=== PATIENT | female | born 1980 | race Caucasian/White ===

== ENCOUNTER → 2018-01-26 08:51 | Outpatient (CLI) | payer OTHER, SELFPAY ==
--- NOTE | 2018-01-26 08:53 | US_ITS ---
STUDY: ABDOMINAL ULTRASOUND - RIGHT UPPER QUADRANT REASON FOR VISIT: Female, 37 years old. Abdominal pain. TECHNIQUE: Ultrasound evaluation of the right upper quadrant was performed with real-time and static lindo-scale imaging. TECHNICAL QUALITY: Adequate. COMPARISON: None. FINDINGS: Liver: The liver measures 15.2 cm. There is increased echogenicity consistent with mild degree of fatty infiltration. The bile ducts are within normal limits. There is hepatic color flow. The direction of portal flow is hepatopetal. There is no demonstrated mass lesion. Gallbladder: Normal distended gallbladder. The gallbladder wall measures 1.7 mm. There is a negative sonographic Conde's sign. There is no pericholecystic fluid. There is a solitary echogenic gallstone within the gallbladder. This measures 9 mm x 9 mm x 8 mm. Common Bile Duct (C.B.D.): The common bile duct measures 2.2 mm. Pancreas: Normal size of the head, body of the pancreas. The tail portion is obscured due to overlying bowel gas. There is normal echogenicity of the pancreas. There is no demonstrated pancreatic mass or cyst. Right Kidney: Normal size of the right kidney. The right kidney measures 9.5 cm x 6.2 cm x 4.9 cm. Normal renal cortex. The right cortex measures 1.7 cm. There is no demonstrated renal mass or cyst. There is no right hydronephrosis. US/Abdomen Limited IMPRESSION: Mild degree of fatty infiltration of the liver. Solitary gallstone. Electronically Signed: Seth Dupree MD at 10:17 EDT Tel [phone], Service support ,
== END ==
PROVIDERS: Family Provider Internal Medicine; PCP Internal Medicine; Visit Provider Surgery
DX: R10.11 Right upper quadrant pain (principal)
CPT/HCPCS: 76705

== ENCOUNTER 2018-02-08 05:50 | Day surgery (SDC) | payer OTHER, SELFPAY ==
--- NOTE | 2018-02-08 | IMM_PTH ---
PATIENT: MANUEL HARRIS LOC: EN U#:[id number] AGE/SX: 37/F ROOM: RE02/08/[address]: Dr. Martin Abraham MD : 1980 BED: DIS: 02/08/2018 SPEC #: [id number] RECD: 02/09/18 09:53 STATUS: ROMAN JULI #: [id number] SAUL: 02/08/18 00:[address]: Martin Abraham DEPT: IMMUNOHISTOCHEMISTRY RECD BY: Michelle Barney ENTERED: 02/09/18 09:54 SP TYPE: IMMUNO OTHR DR: Dr. Jovana Cavazos, Tissues: B - Stomach, NOS Procedures: H Pylori (initial) PHYSICIAN & INSTITUTION [place] [id number] SPECIMEN INFORMATION: Tissue Source: B ? Antral biopsy Clinical Info: Epigastric pain, diarrhea Specimen Number: [id number] CPT code: 85796 METHODOLOGY: Deparaffinized sections of prefer/formalin-fixed tissue or PAP/DQ stained slides are incubated with monoclonal/polyclonal antibodies/oligonucleotide probes. Localization is made via biotin free immunoperoxidase method. Appropriate controls are performed and reacted as expected. Results on target cell population are indicated in the following table: RESULTS: ANTIBODY / CLONE RESULT Block B H Pylori (polyclonal) negative These tests were developed and their performance characteristics determined by [facility]. They may not have been cleared or approved by the U.S. Food and Drug Administration. The FDA has determined that such clearance or approval is not necessary. INTERPRETATION: B. Antral biopsy: Negative for Helicobacter pylori organisms. AM:adenike 02/10/18
[2018-02-08 06:12] VITALS: BP 97/70; PULSE 88; RESP 20; TEMP 36.5; O2SAT 100; BMI 34.8
--- NOTE | 2018-02-08 06:30 | EGD_PTH ---
PATIENT: MANUEL HARRIS LOC: EN U#:[id number] AGE/SX: 37/F ROOM: RE02/08/[address]: Dr. Martin Abraham MD : 1980 BED: DIS: 02/08/2018 SPEC #: [id number] RECD: 02/08/18 08:59 STATUS: ROMAN JULI #: [id number] SAUL: 02/08/18 06:[address]: Martin Abraham DEPT: SURGICAL PATHOLOGY RECD BY: Afshin Ren ENTERED: 02/08/18 09:37 SP TYPE: EGD BIOPSY OT DR: Dr. Jovana Cavazos DO Tissues: A - Duodenum, NOS B - Gastric mucous membrane C - Esophagus, NOS D - Esophagus, NOS E - COLON BIOPSY Procedures: Surgery Specimen Level IV HEADER OPERATION: EGD, colonoscopy PRE-OP DIAGNOSIS: Epigastric pain, diarrhea TISSUE SUBMITTED: A. Duodenal biopsy, B. Antral biopsy with H. Pylori, C. Distal esophagus biopsy, D. Mid esophagus biopsy, E. Random colonic biopsies MICROSCOPIC DIAGNOSIS A. Duodenum, biopsy: No pathologic diagnosis. B. Gastric antrum, biopsy; Mild chronic gastritis. C. Distal esophagus, biopsy: Focal changes consistent with reflux. D. Mid esophagus, biopsy: Fragment of benign squamous mucosa. E. Colon, random biopsy: Consistent with lymphocytic colitis. AM:adenike 02/09/18 COMMENT B. The results of immunohistochemistry for Helicobacter pylori will be reported separately ([id number]). C. Glandular epithelium is not represented in the biopsy. Clinical correlation is suggested. MICROSCOPIC DESCRIPTION Slides are reviewed. B. Sections show small collections and groups of plasma cells in the mucosa. Active inflammation is not present. These findings are consistent with mild chronic gastritis. GROSS DESCRIPTION A - Received in fixative is one container labeled with the patient's name and designated duodenal biopsy. The specimen consists of one irregular fragment of light carlin soft tissue that measures 0.2 x 0.2 x 0.1 cm. The specimen is totally submitted in one cassette. B - Received in fixative is one container labeled with the patient's name and designated antral biopsy. The specimen consists of three irregular fragments of light carlin soft tissue that in aggregate measure 0.6 x 0.5 x 0.1 cm. The specimen is totally submitted in one cassette. C - Received in fixative is one container labeled with the patient's name and designated distal esophagus. The specimen consists of one irregular fragment of light carlin soft tissue that measures 0.6 x 0.3 x 0.1 cm. The specimen is totally submitted in one cassette. D - Received in fixative is one container labeled with the patient's name and designated mid esophagus biopsy. The specimen consists of one irregular fragment of light carlin soft tissue that measures 0.5 x 0.2 x 0.1 cm. The specimen is totally submitted in one cassette. E - Received in fixative is one container labeled with the patient's name and designated random colon biopsy. The specimen consists of multiple irregular fragments of light carlin soft tissue that in aggregate measure 1.5 x 1 x 0.1 cm. The specimen is totally submitted in one cassette. / AM:adenike 02/08/18 TC:3 CPT: 36449 x5
--- NOTE | 2018-02-08 06:58 | PCM.OPRPT ---
Problem List (1) Abdominal pain Status: Acute Qualifiers: Abdominal location: generalized Qualified Code(s): R10.84 - Generalized abdominal pain (2) Diarrhea Status: Acute Qualifiers: Diarrhea type: unspecified type Report of Operation Date of Procedure: 02/08/18 Pre-Operative Diagnosis: Epigastric and right upper quadrant abdominal pain. Intractable diarrhea Post-Operative Diagnosis: Diffuse antral erythema gastritis. Normal-appearing colon Surgery/Procedure Performed:: Esophagogastroduodenoscopy with biopsies. Colonoscopy with random biopsies Description of Surgical Findings:: Timeout and informed consent was obtained. 37-year-old female was taken to the endoscopy suite. Her oropharynx was anesthetized with Cetacaine. She was placed in a left lateral decubitus position. Throughout both the upper and lower endoscopy she received total 150 mg of Demerol and 6 mg of Versed is intravenous sedation. At the initiation of the procedure she received 4 mg of Zofran intravenously. The flexible gastroscope was inserted into the esophageal inlet. It was advanced without difficulty. The proximal mid and distal esophagus did not appear to be remarkable. The EG junction was at 40 cm it. It appeared to be intact. The scope was advanced in the stomach and immediately a diffuse erythema of the antrum was noted. Photographs were obtained. The scope was advanced through the pylorus and the first and second portions of the duodenum were inspected. Visually these were normal. Cold forceps were used to obtain biopsies of the duodenum and all remaining biopsies. The scope was then withdrawn back into the stomach. The antrum was inspected and antral biopsies were obtained. The scope was retroflexed. The EG junction and cardia was inspected. The cardia appeared to be unremarkable. Greater and lesser curvatures appeared to be grossly unremarkable but the erythema of the antrum did extend proximally. Excess fluid and air was aspirated free. The scope was withdrawn to the distal esophagus. Distal esophageal biopsies immediately at the e.g. junction were obtained. Mid esophageal biopsies were obtained. The scope was withdrawn without additional abnormality. Digital rectal exam performed. Normal anal tone. Flexible colonoscope was in the rectum advanced to a slightly tortuous sigmoid colon. The scope was then carefully and slowly advanced to the transverse colon and nicely to the cecum. The cecum ileocecal valve area was nicely achieved. Bowel prep was excellent. The scope was then carefully withdrawn from the ascending transverse descending and sigmoid colon. No superficial abnormalities were noted during this inspection. Random cold forcep biopsies are obtained throughout the procedure. The scope was retroflexed within the rectum. No significant hemorrhoidal findings. Scope was placed back in antegrade viewing position excess fluid and air was aspirated free the procedure was completed with the patient tolerating it well. Impression Diffuse antral gastritis. Duodenal and antral and H. pylori and mid and distal esophageal biopsies pending. At this point I will recommend to the patient omeprazole 40 mg p.o. daily while awaiting results. Normal-appearing colon with right upper colonic biopsies pending. The patient is never had a previous colonoscopy. Next screening colonoscopy recommended at age 51. The patient will be notified of pathology results as they become available. The gastritis certainly would correlate with upper abdominal pain. We will await biopsies to see if assistance can be made with the patient's tight stenosis of diarrhea. Cc: Dr. Cavazos The upper endoscopy was started at 0632. It was completed at 0638. The lower endoscopy was started at 0642. The cecum was reached at 0648. The procedure was completed at 0654. Martin Abraham M.D., F.A.C.S. Type of Anesthesia:: IV Sedation
[2018-02-08 07:00] VITALS: BP 119/55; BP 97/70; PULSE 80; RESP 16; TEMP 36.2; O2SAT 98
[2018-02-08 07:05] VITALS: BP 107/51; BP 97/70; PULSE 68; RESP 14; O2SAT 98
[2018-02-08 07:10] VITALS: BP 107/58; BP 97/70; PULSE 85; RESP 16; O2SAT 100
[2018-02-08 07:15] VITALS: BP 95/51; BP 97/70; PULSE 62; RESP 16; TEMP 36.2; O2SAT 99
[2018-02-08 07:19] VITALS: BP 97/70
== END 2018-02-08 07:55 | disposition home or self-care (01) ==
LOC: EN 05:51 → AC 05:52
PROVIDERS: Family Provider Internal Medicine; PCP Internal Medicine; Visit Provider Surgery
PROC: 0DJD8ZZ Inspection of Lower Intestinal Tract, Via Natural or Artificial Opening Endoscopic (ICD-10-PCS; CPT 45378; principal; 2018-02-08 06:25)
DX: K29.50 Unspecified chronic gastritis without bleeding (principal)
CPT/HCPCS: 43239; 45380; 88305; 88342; 99152; 99153; J7120; J2405

== ENCOUNTER 2018-03-15 08:33 | Day surgery (SDC) | payer OTHER, SELFPAY ==
[2018-03-11 10:48] LABS: Hematocrit 39.3 % (37-47); Hemoglobin 12.8 g/dl (12.0-15.0); Mean Corp Hgb Conc 32.6 g/gl (32-36); Platelet Count 284 K/mm3 (150-450); RBC Distribution Width CV 13.7 % (11.6-14.6); RBC Distribution Width SD 43.3 fl (35.1-43.9); Red Blood Count 4.57 M/mm3 (4.2-5.4); White Blood Count 5.2 K/mm3 (4.4-11.0)
[2018-03-11 10:51] LABS: Scan Indicated on CBC? Y/N NO
[2018-03-11 11:12] LABS: Anion Gap 4 (5-15); BUN 12 mg/dL (7-18); BUN/Creat Ratio 16.9 RATIO (10-20); Calcium,Total 8.5 mg/dL (8.5-10.1); Chloride 108 mmol/L (98-107); Creatinine, Serum 0.71 mg/dL (0.55-1.02); EST Glomerular Filtration Rate 99 mL/min (>60); Est Glom Filt Rate - Afr Amer 119 mL/min (>60); Glucose 81 mg/dL (74-106); Potassium 4.2 mmol/L (3.5-5.1); Sodium Level 140 mmol/L (136-145)
[2018-03-11 11:15] LABS: hCG Titer Quant., Serum < 1 mIU/mL (<9 non-preg)
[2018-03-15] VITALS (8 sets, daily range): BP systolic 105–135; BP diastolic 61–98; PULSE 59–78; RESP 14–18; TEMP 36.2–36.9; O2SAT 96–100; BMI 35.7
[2018-03-15 08:57] LABS: Internal QC Validated? YES +Cl - CLEAR BKGD; Pregnancy, Urine Negative Negative
--- NOTE | 2018-03-15 10:20 | GALL_PTH ---
PATIENT: MANUEL HARRIS LOC: [facility] U#:[id number] AGE/SX: 37/F ROOM: RE03/15/[address]: Dr. Martin Abraham MD : 1980 BED: DIS: 03/15/2018 SPEC #: [id number] RECD: 03/15/18 15:15 STATUS: ROMAN JULI #: [id number] SAUL: 03/15/18 10:[address]: Martin Abraham DEPT: SURGICAL PATHOLOGY RECD BY: Jorden Fernando ENTERED: 03/16/18 08:20 SP TYPE: SARAHI FROST DR: Dr. Jovana Cavazos DO Tissues: Gallbladder, NOS Procedures: Surgery Specimen Level III HEADER OPERATION: Laparoscopic cholecystectomy with IOC PRE-OP DIAGNOSIS: Calculus of gallbladder with chronic cholecystitis without obstruction TISSUE SUBMITTED: Gallbladder MICROSCOPIC DIAGNOSIS Gallbladder, cholecystectomy: Cholesterolosis, mild chronic cholecystitis and cholelithiasis. Benign pericystic lymph nodes (two). AM:adenike 03/17/18 MICROSCOPIC DESCRIPTION Slides are reviewed. GROSS DESCRIPTION Received is one container labeled with the patient's name and designated gallbladder. The specimen consists of a gallbladder measuring 8.5 cm in length and up to 4 cm in diameter. The external surface is pink-carlin, smooth and glistening for the most part. Focally it is granular, hemorrhagic and contains cautery artifact. The gallbladder contains green-yellow mucoid bile and one irregular light green stone measuring 1 x 1 x 0.6 cm. A yellowish minute polyp is noted consistent with cholesterolosis measuring 0.2 cm in greatest dimension. The gallbladder wall measures up to 0.2 cm in thickness. It Security Architect sections from the gallbladder and the cystic duct are submitted in one cassette. / SJ:adenike 03/16/18 TC:3 CPT: 05343
--- NOTE | 2018-03-15 10:21 | PCM.HP.STD ---
Problem List (1) Abdominal pain Status: Acute Qualifiers: (2) Biliary dyskinesia Status: Acute History of Present Illness Date of Admission: 03/15/18 The patient is a 37 year old F who has undergone extensive evaluation for epigastric abdominal pain right upper quadrant pain diarrhea. She has a solitary gallstone within the gallbladder measuring 9 x 9 x 8 mm. Common bile duct is felt to be normal. She has had previous stool checks which were negative for pathogen. C-reactive protein was normal. She is intolerant to narcotics with significant nausea. After evaluation with upper and lower endoscopy is felt that at least a component of her problem is chronic cholecystitis cholelithiasis. She presents now for planned definitive gallbladder surgery. Past Medical History Allergies hydrocodone bitartrate [From Vicodin] Adverse Reaction (Verified 03/08/18 14:29) Upset Stomach sulfamethoxazole [From Septra] Adverse Reaction (Verified 03/08/18 14:29) Rash trimethoprim [From Septra] Adverse Reaction (Verified 03/08/18 14:29) Rash Home Medications: Ambulatory Orders Medication Instructions Recorded multivitamin tablet 1 tab PO QAM 02/02/18 Omeprazole [Prilosec] 20 mg PO DAILY 03/08/18 Surgical History: - - History of and hammertoe correction and medial meniscus repair and tonsillectomy and upper and lower endoscopy Smoking Status: Former smoker Review of Systems Constitutional: Denies: Anorexia Eyes: Denies: Blurred vision HEENT: Denies: Difficulty Hearing Cardiovascular: Denies: Chest Pain Respiratory: Denies: Cough Gastrointestinal: Reports: Abdominal Pain Genitourinary: Denies: Dysuria Musculoskeletal: Denies: Arm Pain Skin: Denies: Dryness Neurological: Denies: Balance problems Psychiatric: Denies: Anxiety Endocrine: Denies: Change in Body Habitus Hematologic/ Lymphatic: Denies: Adenopathy VTE Information - Inpt Only VTE Present on Admission: No Patient Problems: Active and Suspected Problems (Last Reviewed 02/02/18 @ 07:49 by Magda Mas) Biliary dyskinesia (Acute) - Physical Exam General: Alert, Oriented x3, Cooperative, No apparent distress HEENT: Atraumatic Oral: Moist Mucosa Neck: Supple Lungs: Clear to auscultation Cardiovascular: Regular rate Abdomen: Bowel Sounds Present, Soft, Non Tender Extremities: No clubbing Skin: No rashes Musculoskeletal: No Tenderness to Palpation of Joints or Extremities Lymphatic: No Cervical, Supraclavicular, or Inguinal Adenopathy Neurological: Cranial nerves II-XII grossly intact Psych/Mental Status: Normal Affect Vital Signs Temp Pulse Resp BP Pulse Ox 98.5 F 78 14 120/61 100 03/15/18 09:03 03/15/18 09:03 03/15/18 09:03 03/15/18 09:03 03/15/18 09:03 Oxygen Delivery Method Room Air Weight: 242 lb 1.081 oz Body Mass Index (BMI) 35.7 Laboratory Tests Past 24 Hrs 03/15/18 08:45 Urine Test Negative Assessment/Plan Active and Suspected Problems (Last Reviewed 02/02/18 @ 07:49 by Magda Mas) Biliary dyskinesia (Acute) Because of the patient's ongoing concerns of persistent recurrent epigastric pain and known gallstone on ultrasound imaging we will proceed with a laparoscopic cholecystectomy with selective cholangiography. The patient and her have had an opportunity to ask and have questions answered. She is aware of the technique, benefits, risks, alternatives. We will proceed as noted. Martin Abraham M.D., F.A.C.S.
--- NOTE | 2018-03-15 10:34 | PCM.DC.GS ---
Discharge Diet: Light diet - advance as tolerated - if you have questions about your diet instructions, please talk to you doctor. Discharge Activity: May Not Drive - for 1 week or while taking narcotic pain medicine. May shower in (days): 1 Lifting Restrictions: 10 pounds Call your doctor if your incision/area has: Continuous Slow Oozing, Sudden Increased Bleeding, Increased Pain/ Swelling, Increased Redness, Foul Smelling Discharge Call your doctor if you observe: Fever of 101 or Higher Suture Line Care: Avoid Pulling/Pushing, Avoid Pinching/Bending Additional Dressing/Incision Instructions:: Change or remove dressing in 4 days. Leave steri-strips in place for 1 week. Allergies/Adverse Reactions: Allergies hydrocodone bitartrate [From Vicodin] Adverse Reaction (Verified 03/08/18 14:29) Upset Stomach sulfamethoxazole [From Septra] Adverse Reaction (Verified 03/08/18 14:29) Rash trimethoprim [From Septra] Adverse Reaction (Verified 03/08/18 14:29) Rash Medications to take at Discharge multivitamin tablet 1 tab PO QAM 02/02/18 Omeprazole [Prilosec] 20 mg PO DAILY 03/08/18 traMADol [Ultram] 50 mg PO Q6H PRN PRN 3 Days #5 tablet 03/15/18 The following prescriptions were given: traMADol [Ultram] 50 mg PO Q6H PRN PRN 3 Days #5 tablet PRN Reason: Pain Primary Care Physician: Jovana Cavazos DO [Primary Care Provider] - Please Follow Up With: Martin Abraham MD - [phone] When: Call to make an appointment to be seen in about 10 days.
[2018-03-15] MEDS: Cefazolin 2 GM in 0.9% Normal Saline 100 ML IV (10:48)
--- NOTE | 2018-03-15 11:14 | RAD_ITS ---
STUDY: INTRAOPERATIVE CHOLANGIOGRAM. REASON FOR EXAM: Female, 37 years old. Laparoscopic cholecystectomy. FLUOROSCOPY TIME (if supplied): (12 seconds) minutes/seconds TECHNIQUE: An intraoperative cholangiogram was performed by the surgeon. Contrast was injected. Imaging was performed. COMPARISON: None. FINDINGS: The visualized intrahepatic ducts are unremarkable. The common bile duct is not dilated. No intraluminal filling defect is seen. There is free flow of contrast into the duodenum. RAD/Cholangiogram/ O R,Initial IMPRESSION: Unremarkable intraoperative cholangiogram. Electronically Signed: Seth Dupree MD at 14:48 EDT Tel [phone], Service support ,
[2018-03-15] MEDS: Bupivacaine Mpf 0.5% 30 ML VIAL (11:58)
--- NOTE | 2018-03-15 12:01 | PCM.OPRPT ---
Problem List (1) Abdominal pain Status: Acute Qualifiers: (2) Biliary dyskinesia Status: Acute Report of Operation Date of Procedure: 03/15/18 Pre-Operative Diagnosis: Cholecystitis cholelithiasis Post-Operative Diagnosis: Chronic cholecystitis cholelithiasis Surgery/Procedure Performed:: Laparoscopic cholecystectomy with cholangiograms Description of Surgical Findings:: Timeout and informed consent was obtained. 37-year-old female was taken to the operating room. She underwent general endotracheal intubation and anesthesia. Ancef 2 g are given intravenously preoperatively. The abdomen was sterilely prepped and draped. 0.5% Marcaine was used as a local anesthetic. Throughout the procedure total 30 cc was used. Skin sites were pre-anesthetized. A vertical infraumbilical incision was created. Holding sutures of 0 Vicryl placed. Varies needle inserted. Saline drop test performed. The abdomen was insufflated with CO2 to a pressure of 10 mmHg pressure. Mireya trocar inserted. Mireya laparoscope inserted. No evidence of any trocar injuries. Under direct visitation five-minute trochars in place in the epigastric area mid abdomen and right upper quadrant. The gallbladder was distracted. Blunt dissection was instituted the infundibulum until clearly the cystic duct and cystic artery and hepatocystic angle was fully dissected free. 2 Hem-o-juan antonio clips were placed proximally on the cystic artery and one distally prior to transecting it. A Hem-o-juan antonio clip was placed on the cystic duct. Incision made in the cystic duct and through a 14-gauge Angiocath a plantar Edson catheter was inserted. Fluoroscopically controlled claims grams were obtained demonstrating normal anatomy and free flow of the small bowel. The client Edson catheter was removed. 2 additional Hem-o-juan antonio clips were placed on the cystic duct prior to transecting it. The gallbladder was then dissected free from the liver bed using electrocautery complete hemostasis was intact there was no bile spillage. The gallbladder was placed in a retrieval bag. The right upper quadrant was irrigated and aspirated free of excess fluid. Fibular was placed in the liver bed to assure hemostasis. The gallbladder was exited the umbilicus. The remaining trochars removed under direct visualization. The abdomen was allowed to deflate of the CO2. The fascia at the umbilicus approximated with interrupted 0 Vicryl figure 8 suture. Skin edges approximated in interrupted 4 Monocryl subdermal stitches. Steri-Strips Telfa and OpSite dressings applied. Sponge and instrument and needle counts were reported to the surgeon to be correct. Blood loss was minimal. She tolerated procedure well was taken to recovery room in satisfactory condition. Specimens gallbladder. Drains none. Blood loss minimal Martin Abraham M.D., F.A.C.S.
[2018-03-15] MEDS: Naproxen 500 MG Tablet PO (14:00)
== END 2018-03-15 15:10 | disposition home or self-care (01) ==
LOC: SDC 08:36 → AC 08:36
PROVIDERS: Family Provider Internal Medicine; PCP Internal Medicine; Visit Provider Surgery
PROC: (CPT 47610; principal; 2018-03-15 10:00)
DX: K80.10 Calculus of gallbladder with chronic cholecystitis without obstruction (principal); Z87.891 Personal history of nicotine dependence
CPT/HCPCS: 00790; 47563; 36415; 74300; 76000; 80048; 81025; 84702; 85027; 88304; 93005; J7120; J2405

== ENCOUNTER 2018-07-03 07:24 | Emergency (ER) | payer OTHER, SELFPAY ==
[2018-07-03 07:25] VITALS: BP 116/73; PULSE 84; RESP 16; TEMP 37.1; O2SAT 98; BMI 36.0
--- NOTE | 2018-07-03 07:48 | VDLE_ITS ---
Reason For Study: Pain RIGHT LEFT GSV is normal. CFV is compressible, spontaneous, phasic, CFV is compressible, spontaneous, phasic, competent, and demonstrates normal competent and demonstrates normal augmentation. augmentation. FV is compressible, spontaneous, phasic, competent and demonstrates normal augmentation. POP V is compressible, spontaneous, phasic, competent and demonstrates normal augmentation. T/P Trunk is compressible. PTV is compressible. RT PerV is compressible. Procedure Exam performed portable in ED. A preliminary report was called and/or faxed to [facility]. Interpretation Summary Deep veins of the right lower extremity are patent and compressible segmentally. There is no evidence of right lower extremity deep vein thrombosis. Valvular competence appears intact within the proximal deep venous system on the right . The right greater saphenous vein appears patent and compressible segmentally. Ordering Physician: Kyle Lobo Referring Physician: Jovana Cavazos M.D. Performed By: Harish Ramírez RVT and Student
--- NOTE | 2018-07-03 08:39 | ED.VISSUMM ---
- ER Visit Summary Date of Service: 07/03/18 Chief Complaint: Redness pain proximal medial right thigh History of Present Illness: The patient is a 38 F who presents with redness and pain proximal right mid thigh noted 2 days ago. There is no history of trauma. There is no history of PE or DVT and she has no risk factors. She denies chest pain, shortness of breath, dyspnea on exertion. She is on no hormonal therapy. She also reports a palpable nodule behind the right knee. She denies fever, chills or night sweats. She denies weight gain or weight loss. She denies paresthesia, anesthesia or motor weakness. She denies any pain in the groin and she has not noted any palpable mass. Physical Examination: Vital signs are normal. HEENT exam is grossly unremarkable. Lungs are clear to auscultation. Heart is regular without murmur, gallop or rub. Abdomen is soft nontender. There is no inguinal lymphadenopathy or hernia. There is erythema in the area of the greater saphenous vein proximal medial right thigh. There is a palpable tender nodule medial right popliteal fossa. There is no pain palpation along the distribution of deep venous system. There is no leg vein distention. Test Results: Venous duplex study is negative for DVT. Emergency Department Course and Treatment: Since patient has pain along the distribution of the greater saphenous vein and concern that the area of involvement is near the common femoral vein a venous duplex study was obtained. Treatment Plan: Heating pad medium setting and anti-inflammatories since no contraindication Disposition: Discharged to home Impression: Medial proximal right thigh pain Palpable popliteal lymph node This note was generated with Rezora dictation software. It may contain incorrect words, spelling, and punctuation that were not noted in review of the chart prior to signing ED Disposition - Plan for ED Patient: Disposition: Home or Assisted Living Chief Complaint: Lower Extremity Injury Instructions: ED Acute Pain [facility] Referrals: Jovana Cavazos DO [Primary Care Provider] - 3-5 Days if not improving Additional Instructions: Heating pad medium setting to right thigh 4-6 times a day. Take either 4 Advil every 8 hours or 2 Aleve every 12 hours for the next 2-3 days.
--- NOTE | 2018-07-03 08:44 | ED.DCSUM_ITS ---
- ER Visit Summary Date of Service: 07/03/18 Chief Complaint: Redness pain proximal medial right thigh History of Present Illness: The patient is a 38 F who presents with redness and pain proximal right mid thigh noted 2 days ago. There is no history of trauma. There is no history of PE or DVT and she has no risk factors. She denies chest pain, shortness of breath, dyspnea on exertion. She is on no hormonal therapy. She also reports a palpable nodule behind the right knee. She denies fever, chills or night sweats. She denies weight gain or weight loss. She denies paresthesia, anesthesia or motor weakness. She denies any pain in the groin and she has not noted any palpable mass. Physical Examination: Vital signs are normal. HEENT exam is grossly unremarkable. Lungs are clear to auscultation. Heart is regular without murmur , gallop or rub. Abdomen is soft nontender. There is no inguinal lymphadenopathy or hernia. There is erythema in the area of the greater saphenous vein proximal medial right thigh. There is a palpable tender nodule medial right popliteal fossa. There is no pain palpation along the distribution of deep venous system. There is no leg vein distention. Test Results: Venous duplex study is negative for DVT. Emergency Department Course and Treatment: Since patient has pain along the distribution of the greater saphenous vein and concern that the area of involvement is near the common femoral vein a venous duplex study was obtained. Treatment Plan: Heating pad medium setting and anti-inflammatories since no contraindication Disposition: Discharged to home Impression: Medial proximal right thigh pain Palpable popliteal lymph node This note was generated with [employer] dictation software. It may contain incorrect words, spelling, and punctuation that were not noted in review of the chart prior to signing ED Disposition - Plan for ED Patient: Disposition: Home or Assisted Living Chief Complaint: Lower Extremity Injury Instructions: ED Acute Pain [facility] Referrals: Jovana Cavazos DO [Primary Care Provider] - 3-5 Days if not improving Additional Instructions: Heating pad medium setting to right thigh 4-6 times a day. Take either 4 Advil every 8 hours or 2 Aleve every 12 hours for the next 2-3 days.
[2018-07-03 08:56] VITALS: BP 131/69; PULSE 58; RESP 16; O2SAT 99
== END 2018-07-03 08:58 | disposition home or self-care (01) ==
PROVIDERS: Emergency Provider Emergency Medicine; Family Provider Internal Medicine; PCP Internal Medicine
DX: M79.651 Pain in right thigh (principal); R21 Rash and other nonspecific skin eruption; Z79.899 Other long term (current) drug therapy
CPT/HCPCS: 93971; 99282

== ENCOUNTER → 2018-09-21 10:00 | Outpatient (CLI) | payer BC, SELFPAY ==
[2018-09-21 10:08] VITALS: BMI 37.0
[2018-09-26 09:04] LABS: HPV APTIMA, High Risk Negative (Negative)
== END ==
PROVIDERS: Family Provider Internal Medicine; PCP Internal Medicine; Referring Provider Nurse Practitioner Women's Health; Visit Provider Nurse Practitioner Women's Health
DX: Z12.4 Encounter for screening for malignant neoplasm of cervix (principal)
CPT/HCPCS: 87624; 88175; G0145

== ENCOUNTER → 2019-01-05 09:38 | Outpatient (CLI) | payer BC, SELFPAY ==
[2018-09-21 10:08] VITALS: BMI 37.0
[2019-01-05 13:11] LABS: AST(SGOT) 13 U/L (15-37); Alanine Aminotransfer ALT/SGPT 24 U/L (13-56); Albumin, Serum 3.6 g/dL (3.2-5.0); Alkaline Phosphatase 63 U/L (45-117); Anion Gap 4 (5-15); BUN 11 mg/dL (7-18); BUN/Creat Ratio 14.3 RATIO (10-20); Calcium,Total 8.3 mg/dL (8.5-10.1); Chloride 108 mmol/L (98-107); Creatinine, Serum 0.77 mg/dL (0.55-1.02); EST Glomerular Filtration Rate 89 mL/min (>60); Est Glom Filt Rate - Afr Amer 108 mL/min (>60); Globulin 3.7 g/dL (2.2-4.2); Glucose 75 mg/dL (74-106); Lipase 93 U/L (73-393); Potassium 3.9 mmol/L (3.5-5.1); Protein, Total 7.3 g/dL (6.4-8.2); Sodium Level 139 mmol/L (136-145)
== END ==
PROVIDERS: Family Provider Internal Medicine; PCP Internal Medicine; Visit Provider Family Medicine
DX: R10.9 Unspecified abdominal pain (principal)
CPT/HCPCS: 36415; 80053; 83690

== ENCOUNTER → 2019-01-13 08:52 | Outpatient (CLI) | payer BC, SELFPAY ==
[2018-09-21 10:08] VITALS: BMI 37.0
--- NOTE | 2019-01-13 08:56 | US_ITS ---
STUDY: ABDOMINAL ULTRASOUND REASON FOR EXAM: Female, 38 years old. Epigastric pain. TECHNIQUE: Transabdominal ultrasound was performed with real-time and static lindo scale imaging. TECHNICAL QUALITY: Adequate. COMPARISON: January 26, 2018 FINDINGS: Liver: The liver measures 15.7 cm. There is increased echogenicity consistent with fatty infiltration. The bile ducts are within normal limits. There is hepatic color flow. The direction of portal flow is hepatopetal. There is no demonstrated mass lesion. Gallbladder: The patient is status post cholecystectomy. Common Bile Duct (C.B.D.): The common bile duct measures 3.7 mm. Pancreas: Normal size of the head, body and tail of the pancreas. There is normal echogenicity of the pancreas. There is no demonstrated pancreatic mass or cyst. Spleen: Normal size of the spleen. The spleen measures 10.6 cm. Right Kidney: Normal size of the right kidney. The right kidney measures 11.9 cm in length. Normal renal cortex.There is no demonstrated renal mass or cyst. There is no right hydronephrosis. Left Kidney: Normal size of the left kidney. The left kidney measures 10.3 cm in length. Normal renal cortex. There is no demonstrated renal mass or cyst. There is no left hydronephrosis. Aorta: The visualized abdominal aorta is within normal limits. I.V.C.: The IVC is patent. There is no ascites. US/Abdomen Complete IMPRESSION: Fatty infiltration of the liver. Electronically Signed: Alaina Waller MD at 15:32 EDT Tel , Service support ,
== END ==
PROVIDERS: Family Provider Family Medicine; PCP Family Medicine; Referring Provider Family Medicine; Visit Provider Family Medicine
DX: R10.11 Right upper quadrant pain (principal)
CPT/HCPCS: 76700

== ENCOUNTER 2020-02-10 02:44 | Emergency (ER) | payer BC, SELFPAY ==
[2018-09-21 10:08] VITALS: BMI 37.0
[2020-02-10 02:47] VITALS: BP 155/77; PULSE 91; RESP 19; TEMP 36.6; O2SAT 99; BMI 41.8
--- NOTE | 2020-02-10 02:48 | RAD_ITS ---
STUDY: X-RAY - RIGHT ANKLE REASON FOR EXAM: Female, 39 years old. TWISTED RT ANKLE -- C/O PAIN MEDIALLY TECHNIQUE: 3 view(s) of the ankle. COMPARISON: None. FINDINGS: Normal visualized distal tibia and fibula. Normal medial and lateral malleoli. Normal tibiotalar articulation and ankle mortise. There is a minimal plantar calcaneal spur. There is enthesophyte at the Achilles tendon insertion site. Otherwise normal visualized talus and calcaneus. The visualized subtalar, talonavicular, calcaneocuboid and tarsal articulations are normal. There is no demonstrated fracture. Mild soft tissue swelling surrounding the ankle. RAD/Ankle min 3 Views IMPRESSION: Mild nonspecific soft tissue swelling with no acute fracture or subluxation. Electronically Signed: Kaylan Valdez MD at 3:10 EDT , Service support ,
--- NOTE | 2020-02-10 02:58 | RAD_ITS ---
STUDY: X-RAY - RIGHT TIBIA AND FIBULA REASON FOR EXAM: Female, 39 years old. TWISTED RT ANKLE -- C/O PAIN IN RT CALF TECHNIQUE: 2 view(s) of the tibia and fibula were obtained. COMPARISON: None. FINDINGS: Normal visualized tibia. Normal visualized fibula. There is no demonstrated acute fracture. The soft tissue structures are unremarkable. RAD/Tibia & Fibula 2 Views IMPRESSION: Normal x-ray examination of the tibia and fibula. Electronically Signed: Kaylan Valdez MD at 3:40 EDT , Service support ,
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
[2020-02-10] MEDS: Acetaminophen 500 MG Tablet 1000 MG PO (03:03)
[2020-02-10 04:15] VITALS: BP 135/86; PULSE 81; RESP 17; O2SAT 97
== END 2020-02-10 04:15 | disposition home or self-care (01) ==
PROVIDERS: Emergency Provider Emergency Medicine; PCP Family Medicine
DX: S82.831A Other fracture of upper and lower end of right fibula, initial encounter for closed fracture (principal); S93.401A Sprain of unspecified ligament of right ankle, initial encounter; W01.0XXA Fall on same level from slipping, tripping and stumbling without subsequent striking against object, initial encounter; Y93.9 Activity, unspecified; Y92.007 Garden or yard of unspecified non-institutional (private) residence as the place of occurrence of the external cause; Y99.9 Unspecified external cause status; Z88.5 Allergy status to narcotic agent; Z88.2 Allergy status to sulfonamides; Z88.1 Allergy status to other antibiotic agents; Z87.891 Personal history of nicotine dependence
CPT/HCPCS: 73590; 73610; 99284

== ENCOUNTER → 2020-03-05 09:35 | Outpatient (CLI) | payer BC, SELFPAY ==
[2020-02-10 02:47] VITALS: BMI 41.8
--- NOTE | 2020-03-05 10:13 | RAD_ITS ---
STUDY: X-RAY CHEST REASON FOR EXAM: Female, 39 years old. PRE OP ANKLE SURGERY, NO CURRENT CHEST COMPLAINTS TECHNIQUE: PA and lateral views of the chest. COMPARISON: None. FINDINGS: Cardiac silhouette unremarkable. Pulmonary vascularity unremarkable. Aorta unremarkable. No focal patchy airspace opacities. No pleural effusions. Upper abdomen unremarkable. Osseous structures intact. No pneumothorax. RAD/Chest PA and Lateral IMPRESSION: No acute cardiopulmonary findings Electronically Signed: Nando Walker DO at 10:34 EDT Tel , Service support ,
--- NOTE | 2020-03-05 10:25 | EKG12_ITS ---
Test Reason : PREOP Blood Pressure : / mmHG Vent. Rate : 072 BPM Atrial Rate : 072 BPM P-R Int : 156 ms QRS Dur : 098 ms QT Int : 408 ms P-R-T Axes : 009 -19 002 degrees QTc Int : 446 ms Normal sinus rhythm with sinus arrhythmia Normal ECG Confirmed by JORGE CROCKETT, RICHARD ([id number]), editor at large DONNY KO ([id number]) on 03/07/2020 10:06:03 AM Referred By: Harish Ko Confirmed By:GAVIOTA PATEL MD
[2020-03-05 10:32] LABS: Hematocrit 40.5 % (37-47); Hemoglobin 12.8 g/dL (12.0-15.0); Mean Corp Hgb Conc 31.6 g/dL (32-36); Mean Corpuscular Hgb 26.3 pg (27.0-32.0); Mean Corpuscular Volume 83.2 fL (81-99); Mean Platelet Vol. 8.9 fl (6.2-12.0); Platelet Count 372 K/mm3 (150-450); RBC Distribution Width SD 45.9 fl (35.1-43.9); Red Blood Count 4.87 M/mm3 (4.2-5.4); White Blood Count 5.7 K/mm3 (4.4-11.0)
[2020-03-05 10:49] LABS: Prothrombin Time (Protime)PT. 12.6 SECONDS (11.7-14.9)
[2020-03-05 10:50] LABS: Partial Thromboplast Time 28.8 Seconds (24.1-36.2)
[2020-03-05 10:52] LABS: Anion Gap 4 (5-15); BUN 11 mg/dL (7-18); BUN/Creat Ratio 14.3 RATIO (10-20); Calcium,Total 8.7 mg/dL (8.5-10.1); Chloride 107 mmol/L (98-107); Creatinine, Serum 0.77 mg/dL (0.55-1.02); EST Glomerular Filtration Rate 89 mL/min (>60); Est Glom Filt Rate - Afr Amer 108 mL/min (>60); Glucose 84 mg/dL (74-106); Potassium 4.1 mmol/L (3.5-5.1); Sodium Level 139 mmol/L (136-145)
[2020-03-05 11:23] LABS: Hemoglobin A1c 5.4 % (3.8-5.6)
== END ==
PROVIDERS: PCP Family Medicine; Referring Provider Podiatrist Foot & Ankle Surgery; Visit Provider Podiatrist Foot & Ankle Surgery
DX: Z01.818 Encounter for other preprocedural examination (principal); Z01.811 Encounter for preprocedural respiratory examination
CPT/HCPCS: 36415; 71046; 80048; 83036; 85027; 85610; 85730; 93005

== ENCOUNTER → 2020-10-31 08:59 | Outpatient (CLI) | payer BC, SELFPAY ==
[2020-10-31 12:56] LABS: Insulin 14.3 mU/L (2.6-37.6)
[2020-10-31 13:01] LABS: ALB/GLOB Ratio 0.8 RATIO (0.9-2.4); AST(SGOT) 12 U/L (15-37); Alanine Aminotransfer ALT/SGPT 34 U/L (13-56); Albumin, Serum 3.4 g/dL (3.2-5.0); Alkaline Phosphatase 90 U/L (45-117); Anion Gap 5 (5-15); BUN 10 mg/dL (7-18); BUN/Creat Ratio 13.7 RATIO (10-20); Calcium,Total 8.3 mg/dL (8.5-10.1); Chloride 107 mmol/L (98-107); Cholesterol 143 mg/dL (200); Creatinine, Serum 0.73 mg/dL (0.55-1.02); EST Glomerular Filtration Rate 94 mL/min (>60); Est Glom Filt Rate - Afr Amer 114 mL/min (>60); Globulin 4.1 g/dL (2.2-4.2); Glucose 83 mg/dL (74-106); High Density Lipoprotein 54 mg/dL; Potassium 3.8 mmol/L (3.5-5.1); Protein, Total 7.5 g/dL (6.4-8.2); Sodium Level 138 mmol/L (136-145); T4 Free Direct 1.12 ng/dL (0.76-1.46); Thyroid Stim Hormone (TSH) 0.87 uIU/mL (0.358-3.74); Triglycerides 50 mg/dL; Very Low Density Lipoprotein 10 mg/dL (5-40)
[2020-10-31 13:04] LABS: Hemoglobin A1c 5.6 % (3.8-5.6)
== END ==
PROVIDERS: PCP Family Medicine; Visit Provider Family Medicine
DX: R63.5 Abnormal weight gain (principal); K75.81 Nonalcoholic steatohepatitis (NASH); E88.81 Metabolic syndrome and other insulin resistance
CPT/HCPCS: 36415; 80053; 80061; 83036; 83525; 84439; 84443

== ENCOUNTER → 2021-05-29 | Outpatient (CLI) | payer BC, SELFPAY | END | disposition home or self-care (01) | LOC: LABSPEC 15:23 | PROVIDERS: PCP Family Medicine; Visit Provider Family Medicine | DX: Z20.828 Contact with and (suspected) exposure to other viral communicable diseases (principal) | CPT/HCPCS: 87635; U0005; U0003 ==

== ENCOUNTER → 2022-04-20 | Outpatient (CLI) | payer BC, SELFPAY ==
--- NOTE | 2022-04-20 12:47 | BI_ITS ---
MAMMOGRAPHY - BILATERAL SCREENING REASON FOR EXAM: Female, 41 years old. Routine annual screening examination. PERTINENT HISTORY: Non-contributory. TECHNIQUE: Digital bilateral breast nubia (3D mammographic acquisition) in the CC and MLO projections. 2-D mediolateral oblique (MLO) and craniocaudad (CC) views of both breasts were obtained. CAD: Full Field Digital Mammography with Computer Added Detection was performed. COMPARISON: None. Baseline examination. FINDINGS: Breast Composition: The breasts are heterogeneously dense, which may obscure small masses. There are no dominant masses or suspicious calcifications. Benign appearing bilateral axillary lymph nodes. No other significant abnormalities are identified. BI/SCRN MAMM (CAD)W/NUBIA BILAT IMPRESSION: Negative screening mammogram. Yearly followup mammogram recommended. (A) ASSESSMENT CATEGORY: BIRADS Category 2: Benign. A letter regarding these results will be sent to the patient by the facility within 30 days. Approximately 10% of breast cancers are not detected by mammography. A normal mammogram should not delay biopsy of a clinically suspicious abnormality. [id number] Electronically Signed: Seth Dupree MD at 13:42 EDT ,
== END | disposition home or self-care (01) ==
LOC: OPBI 12:45
PROVIDERS: PCP Family Medicine; Visit Provider Nurse Practitioner Women's Health
DX: Z12.31 Encounter for screening mammogram for malignant neoplasm of breast (principal)
CPT/HCPCS: 77063; 77067

== ENCOUNTER → 2022-05-11 | Outpatient (CLI) | payer BC, SELFPAY ==
[2022-05-11 12:31] LABS: Absolute Lymphocyte Count 1.65 X10^3/uL (0.83-4.51); Absolute Neutrophil Count 3.9 X10^3/uL (2.0-7.7); Basophil# 0.07 X10^3/uL; Basophil% 1.1 % (0-1); Eosinophil# 0.31 X10^3/uL; Eosinophils% 4.9 % (0-5); Hemoglobin 11.9 g/dL (12.0-15.0); Lymphocyte # 1.65 X10^3/ul (0.83-4.51); Lymphocyte % 26.1 % (19-41); Mean Corp Hgb Conc 31.3 g/dL (32-36); Mean Corpuscular Hgb 24.9 pg (27.0-32.0); Mean Corpuscular Volume 79.5 fL (81-99); Mean Platelet Vol. 9.9 fl (6.2-12.0); Monocyte% 6.3 % (0-10); NRBC Flagged by Analyzer 0 % (0-5); Neutrophil # 3.88 X10^3/uL (2.7-7.7); Neutrophil % 61.3 % (47-70); Platelet Count 312 K/mm3 (150-450); RBC Distribution Width CV 15.9 % (11.6-14.6); RBC Distribution Width SD 45.4 fl (35.1-43.9); Red Blood Count 4.78 M/mm3 (4.2-5.4); White Blood Count 6.3 K/mm3 (4.4-11.0)
[2022-05-11 12:39] LABS: Hemoglobin A1c 5.5 % (3.8-5.6)
[2022-05-11 12:47] LABS: ALB/GLOB Ratio 0.8 RATIO (0.9-2.4); AST(SGOT) 10 U/L (15-37); Alanine Aminotransfer ALT/SGPT 22 U/L (13-56); Albumin, Serum 3.3 g/dL (3.2-5.0); Alkaline Phosphatase 73 U/L (45-117); Anion Gap 7 (5-15); BUN 10 mg/dL (7-18); BUN/Creat Ratio 14.3 RATIO (10-20); Calcium,Total 8.5 mg/dL (8.5-10.1); Chloride 106 mmol/L (98-107); Cholesterol 170 mg/dL (200); EST Glomerular Filtration Rate 98 mL/min (>60); Est Glom Filt Rate - Afr Amer 119 mL/min (>60); Globulin 4.2 g/dL (2.2-4.2); Glucose 93 mg/dL (74-106); High Density Lipoprotein 61 mg/dL; Potassium 3.9 mmol/L (3.5-5.1); Protein, Total 7.5 g/dL (6.4-8.2); Sodium Level 137 mmol/L (136-145); Thyroid Stim Hormone (TSH) 1.27 uIU/mL (0.358-3.74); Triglycerides 66 mg/dL; Very Low Density Lipoprotein 13 mg/dL (5-40)
[2022-05-11 13:11] LABS: Insulin 13.4 mU/L (2.6-37.6)
== END | disposition home or self-care (01) ==
LOC: MTLAB 09:46
PROVIDERS: PCP Family Medicine; Referring Provider Family Medicine; Visit Provider Family Medicine
DX: Z00.00 Encounter for general adult medical examination without abnormal findings (principal); E88.81 Metabolic syndrome and other insulin resistance; K75.81 Nonalcoholic steatohepatitis (NASH)
CPT/HCPCS: 36415; 80053; 80061; 83036; 83525; 84443; 85025

== ENCOUNTER → 2022-12-13 | Outpatient (CLI) | payer BC, SELFPAY ==
[2022-12-20 19:04] LABS: HPV APTIMA, High Risk Negative (Negative)
== END | disposition home or self-care (01) ==
PROVIDERS: PCP Family Medicine; Visit Provider Nurse Practitioner Women's Health
DX: Z12.4 Encounter for screening for malignant neoplasm of cervix (principal)
CPT/HCPCS: 87624; 88175; G0145

== ENCOUNTER → 2023-03-23 | Outpatient (CLI) | payer BC, SELFPAY ==
[2023-03-28 11:08] LABS: Vitamin D 1,25-Dihydroxy 17.8 pg/mL (24.8-81.5)
== END | disposition home or self-care (01) ==
LOC: LAB 15:06
PROVIDERS: PCP Family Medicine; Referring Provider Obstetrics & Gynecology; Visit Provider Obstetrics & Gynecology
DX: E66.9 Obesity, unspecified (principal)
CPT/HCPCS: 36415; 82652

== ENCOUNTER → 2023-03-28 | Outpatient (CLI) | payer BC, SELFPAY ==
--- NOTE | 2023-03-28 07:57 | EKG12_ITS ---
Test Reason : MEDICATION Blood Pressure : / mmHG Vent. Rate : 090 BPM Atrial Rate : 090 BPM P-R Int : 138 ms QRS Dur : 094 ms QT Int : 378 ms P-R-T Axes : 006 129 004 degrees QTc Int : 462 ms Normal sinus rhythm Left posterior fascicular block Abnormal ECG Confirmed by JORGE CROCKETT, RICHARD ([id number]), material expeditor CHARLES SILVA ([id number]) on 03/29/2023 9:01:41 AM Referred By: Jeanine Matamoros Confirmed By:GAVIOTA PATEL MD
== END | disposition home or self-care (01) ==
LOC: PSN 07:56
PROVIDERS: PCP Family Medicine; Referring Provider Obstetrics & Gynecology; Visit Provider Obstetrics & Gynecology
DX: E66.9 Obesity, unspecified (principal)
CPT/HCPCS: 93005

== ENCOUNTER → 2023-04-15 | Outpatient (CLI) | payer BC, SELFPAY | END | disposition home or self-care (01) | LOC: SL 20:34 | PROVIDERS: PCP Family Medicine; Referring Provider Nurse Practitioner Acute Care; Visit Provider Nurse Practitioner Acute Care | DX: G47.10 Hypersomnia, unspecified (principal) | CPT/HCPCS: 95810 ==

== ENCOUNTER → 2023-04-25 | Outpatient (CLI) | payer BC, SELFPAY ==
--- NOTE | 2023-04-25 10:17 | BI_ITS ---
MAMMOGRAPHY - BILATERAL SCREENING REASON FOR EXAM: Female, 42 years old. Routine annual screening examination. PERTINENT HISTORY: Non-contributory. TECHNIQUE: Digital bilateral breast nubia (3D mammographic acquisition) in the CC and MLO projections. 2-D mediolateral oblique (MLO) and craniocaudad (CC) views of both breasts were obtained. CAD: Full Field Digital Mammography with Computer Added Detection was performed. COMPARISON: Comparison is made with prior study April 20, 2022. FINDINGS: Breast Composition: The breasts are heterogeneously dense, which may obscure small masses. There are no dominant masses or suspicious calcifications. Stable benign-appearing bilateral axillary nodes. No other significant abnormalities are identified. There has been no significant change since the prior study. BI/SCRN MAMM (CAD)W/NUBIA BILAT IMPRESSION: Stable bilateral screening mammogram. Yearly follow-up mammogram recommended. (A) ASSESSMENT CATEGORY: BIRADS Category 2: Benign. A letter regarding these results will be sent to the patient by the facility within 30 days. Approximately 10% of breast cancers are not detected by mammography. A normal mammogram should not delay biopsy of a clinically suspicious abnormality. [id number] Electronically Signed: Seth Dupree MD at 13:34 EDT ,
== END | disposition home or self-care (01) ==
LOC: OPBI 10:16
PROVIDERS: PCP Family Medicine; Referring Provider Nurse Practitioner Women's Health; Visit Provider Nurse Practitioner Women's Health
DX: Z12.31 Encounter for screening mammogram for malignant neoplasm of breast (principal)
CPT/HCPCS: 77063; 77067

== ENCOUNTER → 2023-05-20 | Outpatient (CLI) | payer BC, SELFPAY ==
[2023-05-20 14:09] LABS: Anion Gap 5 (5-15); BUN 14 mg/dL (7-18); BUN/Creat Ratio 18.2 RATIO (10-20); Chloride 105 mmol/L (98-107); Creatinine, Serum 0.77 mg/dL (0.55-1.02); EST Glomerular Filtration Rate 87 mL/min (>60); Est Glom Filt Rate - Afr Amer 106 mL/min (>60); Glucose 109 mg/dL (74-106); Potassium 3.8 mmol/L (3.5-5.1); Sodium Level 139 mmol/L (136-145)
[2023-05-24 13:08] LABS: Vitamin D 1,25-Dihydroxy 40.4 pg/mL (24.8-81.5)
== END | disposition home or self-care (01) ==
LOC: LAB 13:14
PROVIDERS: Nurse Practitioner Women's Health; PCP Family Medicine; Referring Provider Internal Medicine Cardiovascular Disease; Visit Provider Internal Medicine Cardiovascular Disease
DX: E55.9 Vitamin D deficiency, unspecified (principal); I10 Essential (primary) hypertension; R06.09 Other forms of dyspnea; R00.2 Palpitations
CPT/HCPCS: 36415; 80048; 82652

== ENCOUNTER → 2023-05-23 | Outpatient (CLI) | payer BC, SELFPAY ==
--- NOTE | 2023-05-23 11:00 | ECHOCS_ITS ---
Reason For Study: ABN EKG Procedure This was a 2D Doppler, Color Flow transthoracic echocardiogram. The study was technically difficult. Exam performed in department. Left Ventricle Normal LV size. Apical false tendon noted. Left ventricular systolic function is normal. The estimated ejection fraction is 65 %. Normal diastology for age. Right Ventricle Normal RV size. Normal systolic function. Atria The left and right atria are normal. Mitral Valve The mitral valve is structurally normal. No prolapse or stenosis seen. Trivial mitral valve insufficiency. Tricuspid Valve Normal tricuspid valve. Right ventricular systolic pressure estimated to be 24 mmHg. Trivial tricuspid valve insufficiency. Aortic Valve Trisinus/trileaflet aortic valve. Pulmonic Valve The pulmonic valve is not well visualized. Trivial pulmonic valve insufficiency. Great Vessels Mildly dilated aortic root. Pericardium/Pleural No pericardial effusion. Medication Diluted definity 2ml given slow IV push to enhance endocardial definition. MMode/2D Measurements & Calculations LVIDd: 5.3 cm IVSd: 1.0 cm Ao root diam: 3.2 cm LVIDs: 3.0 cm LVPWd: 1.1 cm FS: 43.8 % LAV(MOD-bp): 65.0 ml LVAd ap4: 37.1 cm2 SV(MOD-sp4): 74.5 ml LAV(MOD-bp) Indexed: 26.3 ml/m2 LVLd ap4: 8.7 cm LAV(MOD-sp2): 94.3 ml EDV(MOD-sp4): 130.0 ml LAV(MOD-sp4): 41.7 ml EDV(sp4-el): 134.0 ml LVAs ap4: 23.5 cm2 LVLs ap4: 8.0 cm ESV(MOD-sp4): 55.5 ml ESV(sp4-el): 58.3 ml EF(MOD-sp4): 57.3 % EF(sp4-el): 56.5 % SV(sp4-el): 75.7 ml LA A4 area: 17.4 cm2 LA dimension(2D): 3.8 cm RA A4 area: 20.8 cm2 TAPSE: 3.0 cm Time Measurements MV dec time: 0.18 sec Doppler Measurements & Calculations MV E max julio: 75.6 cm/sec Lat Peak E' Julio: 9.5 cm/sec Med Peak E' Julio: 11.1 cm/sec MV A max julio: 71.5 cm/sec E/E' lat: 8.0 E/E' med: 6.8 MV E/A: 1.1 MV V2 max: 79.4 cm/sec MV dec slope: 439.3 cm/sec2 Ao V2 max: 105.8 cm/sec MV max P.5 mmHg Ao max P.5 mmHg MV V2 mean: 48.8 cm/sec Ao V2 mean: 71.8 cm/sec MV mean P.1 mmHg Ao mean P.4 mmHg MV V2 VTI: 22.1 cm Ao V2 VTI: 22.3 cm AV (velocity ratio): 0.83 LV V1 max: 89.8 cm/sec PA V2 max: 99.4 cm/sec TR max julio: 230.6 cm/sec LV V1 max P.2 mmHg PA V2 mean: 76.5 cm/sec TR max P.3 mmHg LV V1 mean P.8 mmHg LV V1 mean: 62.7 cm/sec LV V1 VTI: 18.4 cm ECHO/Echo Complete W/ Contrast Interpretation Summary The estimated ejection fraction is 65 %. Mildly dilated aortic root. The study was technically difficult. Contrast injection was performed. Ordering Physician: Gaudencio Martell Referring Physician: Gaudencio Martell Performed By: Shaylee Santiago RCS
== END | disposition home or self-care (01) ==
LOC: CVS 11:00
PROVIDERS: PCP Family Medicine; Referring Provider Internal Medicine Cardiovascular Disease; Visit Provider Internal Medicine Cardiovascular Disease
DX: R94.31 Abnormal electrocardiogram [ECG] [EKG] (principal)
CPT/HCPCS: 93306; Q9957; A4216; C8929

== ENCOUNTER → 2024-05-15 | Outpatient (CLI) | payer BC, SELFPAY ==
--- NOTE | 2024-05-15 09:38 | BI_ITS ---
MAMMOGRAPHY - BILATERAL SCREENING REASON FOR EXAM: Female, 43 years old. Routine annual screening examination. PERTINENT HISTORY: Non-contributory. TECHNIQUE: Digital bilateral breast nubia (3D mammographic acquisition) in the CC and MLO projections. 2-D mediolateral oblique (MLO) and craniocaudad (CC) views of both breasts were obtained. CAD: Full Field Digital Mammography with Computer Added Detection was performed. COMPARISON: Comparison is made with prior study dated April 25, 2023 and April 20, 2022. FINDINGS: Breast Composition: The breasts are heterogeneously dense, which may obscure small masses. There is a 3.2 cm by 2.5 cm well-defined nodule in the upper anterior lateral aspect of the left breast. Correlation with ultrasound is recommended. No other significant abnormalities are identified. BI/SCRN MAMM (CAD)W/NUBIA BILAT IMPRESSION: 3.2 cm x 2.5 cm well-defined nodule in the upper anterior lateral aspect of the left breast. Correlation with ultrasound is recommended. ASSESSMENT CATEGORY: BIRADS Category 0: Incomplete. Need additional imaging evaluation. A letter regarding these results will be sent to the patient by the facility within 30 days. Approximately 10% of breast cancers are not detected by mammography. A normal mammogram should not delay biopsy of a clinically suspicious abnormality. [id number] Electronically Signed: Seth Dupree MD at 10:51 EDT ,
== END | disposition home or self-care (01) ==
LOC: OPBI 09:38
PROVIDERS: PCP Family Medicine; Referring Provider Nurse Practitioner Women's Health; Visit Provider Nurse Practitioner Women's Health
DX: Z12.31 Encounter for screening mammogram for malignant neoplasm of breast (principal)
CPT/HCPCS: 77063; 77067

== ENCOUNTER → 2024-05-17 | Outpatient (CLI) | payer BC, SELFPAY ==
--- NOTE | 2024-05-17 08:00 | US_ITS ---
STUDY: ULTRASOUND BREAST - LEFT REASON FOR EXAM: Female, 43 years old. Abnormal screening mammogram. TECHNIQUE: Axial and longitudinal images of the LEFT breast were performed with a high resolution ultrasound transducer. # OF IMAGES: 24 COMPARISON: Comparison is made with prior mammogram dated May 15, 2024. FINDINGS: LEFT Breast: The lateral half of the left breast was examined with ultrasound. There is dense fibroglandular tissue. There is an 8 mm x 12 mm x 5 mm hypoechoic slightly irregular nodule at the 4:00 position of the breast at 4 cm from the nipple. Biopsy is recommended. US/Breast Limited Unilateral IMPRESSION: 8 mm x 12 mm x 5 mm hypoechoic slightly irregular nodule at the 4:00 position of the breast at 4 cm from the nipple. Biopsy is recommended. Dense fibroglandular tissue. ASSESSMENT CATEGORY: BIRADS Category 4: Suspicious - Biopsy Should Be Considered. A letter regarding these results will be sent to the patient by the facility within 30 days. Electronically Signed: Seth Dupree MD at 10:59 EDT ,
== END | disposition home or self-care (01) ==
PROVIDERS: PCP Family Medicine; Referring Provider Nurse Practitioner Women's Health; Visit Provider Nurse Practitioner Women's Health
DX: N63.20 Unspecified lump in the left breast, unspecified quadrant (principal); R92.8 Other abnormal and inconclusive findings on diagnostic imaging of breast
CPT/HCPCS: 76642

== ENCOUNTER → 2024-06-08 | Outpatient (CLI) | payer BC, SELFPAY ==
--- NOTE | 2024-06-08 | BRBX_PTH ---
PATIENT: MANUEL HARRIS LOC: [facility] U#:[id number] AGE/SX: 44/F ROOM: RE06/08/[address]: Val Mendiola PA-C : 1980 BED: DIS: 06/08/2024 SPEC #: [id number] RECD: 06/08/24 13:34 STATUS: ROMAN RECam #: [id number] SAUL: 06/08/24 00:[address]: Val Mendiola DEPT: SURGICAL PATHOLOGY RECD BY: Afshin Ren ENTERED: 06/08/24 13:45 SP TYPE: BREAST BX OTHR DR: Dr. Benigno Chambers, Tissues: Left breast, NOS Procedures: Surgery Specimen Level IV HEADER OPERATION: Ultrasound guided breast biopsy left breast PRE-OP DIAGNOSIS: Left breast lesion TISSUE SUBMITTED: Left breast, 4o'clock, 4.0cm from nipple Ischemic Time: 1 minute Fixation Time: 55 hours MICROSCOPIC DIAGNOSIS Left breast lesion, ultrasound guided core biopsy: Focal apocrine metaplasia. No evidence of malignancy. See comment. WENDYYann 06/11/2024 COMMENT Immunohistochemistry ([id number]) supports the above diagnosis. The specimen primarily consists of benign collagenous and fibrofatty tissue. Clinical correlation is suggested. Case has been reviewed in consultation with Dr. Bauer who concurs with the above diagnosis. IDC:[id number] MICROSCOPIC DESCRIPTION Slides are reviewed. GROSS DESCRIPTION Received in fixative is one container labeled with the patient's name and designated Left breast. The specimen consists of multiple elongated fragments of carlin-yellow firboadipose tissue that in aggregate measure 1.5 x 0.3 x 0.1 cm. The specimen is totally submitted in one cassette. 06/08/2024 TC:5 CPT:05184
--- NOTE | 2024-06-08 | IMM_PTH ---
PATIENT: MANUEL HARRIS LOC: [facility] U#:[id number] AGE/SX: 44/F ROOM: RE06/08/[address]: Val Mendiola PA-C : 1980 BED: DIS: 06/08/2024 SPEC #: [id number] RECD: 06/12/24 12:02 STATUS: ROMAN REQ #: [id number] SAUL: 06/08/24 00:[address]: Val Mendiola DEPT: IMMUNOHISTOCHEMISTRY RECD BY: Flex Londono ENTERED: 06/12/24 12:02 SP TYPE: IMMUNO OTHR DR: Dr. Benigno Chambers, Tissues: Left breast, NOS Procedures: SMA (add) Calponin-1(initial) P40 (add) PHYSICIAN & INSTITUTION [place] [id number] SPECIMEN INFORMATION: Tissue Source: Left breast 4o'clock, 4.0cm from nipple Clinical Info: Left breast lesion Specimen Number: [id number] CPT code: 53494,11790d8 METHODOLOGY: Deparaffinized sections of prefer/formalin-fixed tissue or PAP/DQ stained slides are incubated with monoclonal/polyclonal antibodies/oligonucleotide probes. Localization is made via biotin free immunoperoxidase method. Appropriate controls are performed and reacted as expected. Results on target cell population are indicated in the following table: RESULTS: ANTIBODY / CLONE RESULT Calponin-1 ([id number]) positive P40 (BC28) positive Actin (1A4) positive These tests were developed and their performance characteristics determined by [facility]. They may not have been cleared or approved by the U.S. Food and Drug Administration. The FDA has determined that such clearance or approval is not necessary. The above immunohistochemical/dualISH markers are ordered and reviewed by the Pathologist. INTERPRETATION: Left breast, ultrasound guided core biopsy: Benign breast tissue. AM/ 06/13/2024
--- NOTE | 2024-06-08 12:13 | US_ITS ---
STUDY: ULTRASOUND BREAST - LEFT REASON FOR EXAM: Female, 44 years old. Abnormal screening mammogram. TECHNIQUE: Axial and longitudinal images of the LEFT breast were performed with a high resolution ultrasound transducer. # OF IMAGES: 46 COMPARISON: Comparison is made with prior ultrasound of the left breast dated May 17, 2024. FINDINGS: LEFT Breast: Under direct sonographic guidance, the surgeon performed 4 core biopsies with a 14-gauge core biopsy needle system. US/US Breast Biopsy 1st Lesion IMPRESSION: Ultrasound-guided biopsy of the 9 mm x 14 mm x 6 mm hypoechoic nodule at the 4:00 position breast at 4 cm from the nipple. ASSESSMENT CATEGORY: BIRADS Category 2: Benign. A letter regarding these results will be sent to the patient by the facility within 30 days. Electronically Signed: Seth Dupree MD at 11:06 EDT ,
--- NOTE | 2024-06-08 13:29 | PCM.OPRPT ---
Report of Operation Date of Procedure: 06/08/24 Pre-Operative Diagnosis: Left breast mass Post-Operative Diagnosis: Same Surgery/Procedure Performed:: Ultrasound-guided left breast biopsy Surgeon: Kamla Keita Type of Anesthesia: Local Specimen's removed: Left breast 4:00 4 cm from the nipple Estimated Blood Loss (mL): < 5 cc Description of Procedure: Procedure: Left ultrasound-guided core biopsy Indications: 44 year-old female with hypoechoic nodule at 4:00 in the left breast for centimeters from the nipple. Risk benefits were discussed the patient and she elected to proceed with ultrasound guided core biopsy with clip placement Description of procedure: Patient was brought into the ultrasound room in the left breast was marked. A timeout was completed verifying correct patient, procedure, site, specially, prior to beginning procedure. The left breast was prepped and draped in usual sterile fashion and using local anesthesia was obtained with 1% lidocaine with epi. The lesion was located with the ultrasound. Small incision was made with 11 blade to introduced the BARD MaxCore through the skin. Under ultrasound guidance multiple core samples were obtained using then 14-gauge BARD MaxCore and sent in formalin for pathology. The Bard dual ultra ribbon clip was then deployed into the biopsy cavity under ultrasound guidance and a picture was taken. Upon completion procedure hemostasis was obtained and a Steri-Strip and OpSite were placed. Patient was then taken to the mammography suite for clip verification. The clip was verified. The patient tolerated the procedure well and was discharged from the breast imaging department good condition. Complications none
== END | disposition home or self-care (01) ==
PROVIDERS: PCP Family Medicine; Referring Provider Physician Assistant; Visit Provider Physician Assistant
DX: N60.82 Other benign mammary dysplasias of left breast (principal)
CPT/HCPCS: 19083; 88305; 88341; 88342

== ENCOUNTER → 2024-12-17 | Outpatient (CLI) | payer BC, SELFPAY ==
--- NOTE | 2024-12-17 10:58 | US_ITS ---
PROCEDURE: BREAST LIMITED UNILATERAL REASON FOR EXAM: Six-month follow-up of left breast biopsy. COMPARISON: Comparison is made with prior sonogram dated May 17, 2024. TECHNIQUE: Targeted bilateral breast ultrasound. FINDINGS: LEFT: Ultrasound targeted to the upper lateral aspect of the left breast. Dense fibroglandular tissue. A tissue clip marker is seen at the 4 o'clock position of the left breast at 4 cm from the nipple. Stable 1 cm x 0.9 cm hypoechoic nodule at that site. US/Breast Limited Unilateral IMPRESSION: Stable examination. A tissue clip is seen at the biopsy site. BI-RADS 2: BENIGN. RECOMMEND ANNUAL MAMMOGRAPHIC SCREENING. Reading Location: [id number]
== END | disposition home or self-care (01) ==
PROVIDERS: PCP Family Medicine; Referring Provider Surgery; Visit Provider Surgery
DX: N63.21 Unspecified lump in the left breast, upper outer quadrant (principal); R92.8 Other abnormal and inconclusive findings on diagnostic imaging of breast
CPT/HCPCS: 76642

== ENCOUNTER → 2025-05-22 | Outpatient (CLI) | payer BC, SELFPAY ==
[2025-05-22 12:37] LABS: Hematocrit 37.4 % (37-47); Hemoglobin 11.6 g/dL (12.0-15.0); Immature Granulocytes Count 0.020 X10^3/uL (0.0-0.0); Mean Corp Hgb Conc 31.0 g/dL (32-36); Mean Corpuscular Volume 77.6 fL (81-99); Mean Platelet Vol. 9.2 fl (6.2-12.0); NRBC Flagged by Analyzer 0 % (0-5); Platelet Count 386 K/mm3 (150-450); RBC Distribution Width CV 16.0 % (11.6-14.6); RBC Distribution Width SD 45.5 fl (35.1-43.9); Red Blood Count 4.82 M/mm3 (4.2-5.4); White Blood Count 7.3 K/mm3 (4.4-11.0)
[2025-05-22 13:21] LABS: AST(SGOT) 38 U/L (<=31); Alanine Aminotransfer ALT/SGPT 49 U/L (<=34); Albumin, Serum 3.8 g/dL (3.5-5.0); Alkaline Phosphatase 87 U/L (35-104); Anion Gap 13 (5-15); BUN 10 mg/dL (4-19); BUN/Creat Ratio 16.5 RATIO (10-20); Calcium,Total 8.9 mg/dL (7.6-11.0); Carbon Dioxide 21.8 mmol/L (21.0-32.0); Chloride 103 mmol/L (98-108); Cholesterol 159 mg/dL (<=200); Globulin 3.4 g/dL (2.2-4.2); Glucose 125 mg/dL (70-99); Low Density Lipoprotein Calc. 86 mg/dL; Potassium 4.1 mmol/L (3.3-5.1); Triglycerides 79 mg/dL; Very Low Density Lipoprotein 16 mg/dL (5-40); cholesterol:hdl ratio screen 2.77
== END | disposition home or self-care (01) ==
LOC: BFHLAB 09:48
PROVIDERS: PCP Family Medicine; Visit Provider Family Medicine
DX: Z00.00 Encounter for general adult medical examination without abnormal findings (principal); K75.81 Nonalcoholic steatohepatitis (NASH)
CPT/HCPCS: 36415; 80053; 80061; 83036; 84443; 85025

== ENCOUNTER → 2025-05-30 | Outpatient (CLI) | payer BC, SELFPAY ==
--- NOTE | 2025-05-30 08:17 | US_ITS ---
PROCEDURE: ABDOMEN LIMITED 05/30/2025 REASON FOR EXAM: PERALTA/ASSESS DEGREE OF STEATOSIS COMPARISON: Prior study dated January 13, 2019. FINDINGS: Liver: Diffusely echogenic suggesting fatty infiltration. Hepatomegaly. The liver measures 19.6 cm. Gallbladder: Surgically absent. Common bile duct: Dilated measuring up to 7.3 mm. This may be normal for the post cholecystectomy state. . Pancreas: Normal Other: Visualized portions of the right kidney are unremarkable. No right upper quadrant ascites. US/Abdomen Limited IMPRESSION: Fatty infiltration of the liver. Hepatomegaly. Reading Location: [place] [id number]
== END | disposition home or self-care (01) ==
LOC: US 08:15
PROVIDERS: PCP Family Medicine; Referring Provider Family Medicine; Visit Provider Family Medicine
DX: K75.81 Nonalcoholic steatohepatitis (NASH) (principal)
CPT/HCPCS: 76705

== ENCOUNTER → 2025-07-10 | Outpatient (CLI) | payer BC, SELFPAY ==
--- NOTE | 2025-07-10 16:00 | BI_ITS ---
EXAM: SCRN MAMM (CAD)W/NUBIA BILAT DATE: 07/10/2025 CLINICAL HISTORY: F, Age 45 y/o , BREAST CANCER SCREENING TECHNIQUE: Procedure Code: [id number] Modality: MG Procedure: SCRN MAMM (CAD)W/NUBIA BILAT COMPARISON: Prior exam(s) were compared FINDINGS: TISSUE DENSITY: The breasts are heterogeneously dense, which may obscure small masses. Bilateral Breast Mammographic Findings: No suspicious masses, calcifications or other abnormalities are identified. BI/SCRN MAMM (CAD)W/NUBIA BILAT IMPRESSION: No mammographic evidence of malignancy in either breast. OVERALL FINAL ASSESSMENT BI-RADS 1: NEGATIVE. RECOMMENDATION: Routine annual follow-up in 1 Year Additional Recommendation none A letter with findings and recommendations will be mailed to the patient. Reading Location: [id number]
--- OUTSIDE RECORDS SUMMARY | 2025-07-10 18:53 | XMS RPT_ITS | CCD ---
Author Organization [facility] Care Team Providers Care Miner Helper Name Role Phone Napoleon Chambers DO Primary Care Provider Dr. Napoleon Chambers Primary Care Provider [phone] Dr. Napoleon Chambers Referring Provider Raquel HAND DRAWER IN HELPER, DAQUAN-C Dia Attending Provider Dr. Napoleon Chambers Primary Care Provider [phone] Dr. Napoleon Chambers Referring Provider Raquel BUTT NP-C Dia Attending Provider [phone] Dr. Jeanine Matamoros Attending Provider [phone] Dr. Napoleon Chambers Primary Care Provider [phone] Dr. Napoleon Chambers Referring Provider [phone] Maricarmen BUTT, HAND DRAWER IN HELPER-C Ester Attending Provider Dr. Brady Rene Attending Provider Dr. Jeanine Matamoros Referring Provider Dr. Gaudencio Martell Attending Provider Napoleon Chambers DO Primary Care Provider NAPOLEON CHAMBERS Primary Care Unavailable Dr. Napoleon Chambers DO Primary Care Provider Dr. Kamla Keita MD Attending Provider Dr. Kamla Keita MD Referring Provider Dr. Napoleon Chambers DO Primary Care Provider Dr. Napoleon Chambers DO Referring Provider Dia Ibrahim Attending Provider [phone] Dr. Napoleon Chambers DO Attending Provider [phone] Kamla Keita Attending Unavailable Kamla Keita Referring Unavailable TrishNapoleon Primary Care Unavailable Dia García NP Attending Unavailable Napoleon Chambers Primary Care Unavailable Napoleon Chambers Referring Unavailable Napoleon Chambers Primary Care Unavailable Napoleon Chambers Attending Unavailable Napoleon Chambers Referring Unavailable Napoleon Chambers Primary Care Unavailable Napoleon Chambers Attending Unavailable Dia García NP Attending Unavailable Raquel HAND DRAWER IN HELPERDia Referring Unavailable TrishNapoleon baeza Primary Care Unavailable Napoleon Chambers Primary Care Unavailable Napoleon Chambers Attending Unavailable Allergies Allergy Classification Reported Allergen(s) Allergy Type Date of Onset Reaction(s) Facility (5 sources) HYDROcodone Drug Allergy 1 Upset Stomach [facility] (11 sources) Sulfamethoxazole Drug Allergy 1 [facility] (11 sources) Trimethoprim Drug Allergy 1 [facility] (8 sources) Acetaminophen / HYDROcodone; Translations: [HYDROCODONE-ACETAMI NOPHEN] Drug Allergy 9 Vomiting [facility] (8 sources) Sulfamethoxazole / Trimethoprim; Translations: [SULFAMETHOXAZOLE-TR IMETHOPRIM] Drug Allergy 1 Rash [facility] Work Phone: (1 source) Sulfamethoxazole Drug Allergy 5 [facility] (1 source) Trimethoprim Drug Allergy 5 [facility] Medications Current Medications Medication Drug Class(es) Dates Sig (Normalized) Sig (Original) amoxicillin 500 mg oral capsule (2 sources) Penicillin-class Antibacterial Start: 01-13-2023 End: 01-23-2023 take 1 capsule by mouth twice daily amoxicillin (AMOXIL) 500 mg capsule Take 1 capsule by mouth twice daily for 10 days. 20 capsule 0 01/13/2023 01/23/2023 Active Start: 12-03-2022 End: 12-13-2022 take 1 capsule by mouth twice daily amoxicillin (POLYMOX, AMOXIL) 500 mg capsule Indications: Strep throat Take 1 capsule by mouth twice daily for 10 days. 20 capsule 0 12/03/2022 12/13/2022 Active Comment on above: Take 1 capsule by mo [facility] twice daily for 10 days. amoxicillin 875 mg / clavulanate 125 mg oral tablet (1 source) Penicillin-class Antibacterial Start: 5 End: 5 take 1 tablet by mouth twice daily amoxicillin-clavul anate potassium (AUGMENTIN) 875-125 mg per tablet Take 1 tablet by mouth two times a day for 7 days. 14 tablet 12/15/2024 12/22/2024 Active Calcium Carbonate (7 sources) CALCIUM CARBONAT E (CALCIUM 600 ORAL) Take by mouth. Active CALCIUM CARBONAT E (CALCIUM 600 ORAL) Take by mouth. 0 Active Comment on above: Take by mouth. cetirizine hydrochloride 10 mg oral tablet (14 sources) Histamine-1 Receptor Antagonist Start: 3 End: 3 take 1 tablet by mouth once daily Cetirizine (Zyrtec) 10 mg tablet Active 10 mg PO DAILY April 26, 2023 9:21am citalopram 20 mg oral tablet (20 sources) Serotonin Reuptake Inhibitor Start: 3 take 1 tablet by mouth once daily Citalopram (Celexa) 20 mg tablet Active 20 mg PO DAILY April 26, 2023 12:00am Start: 02-10-2020 End: 03-04-2023 take 1 tablet by mouth once daily Citalopram 20 MG tablet Discontinued 20 mg PO DAILY February 10, 2020 12:00am March 04, 2023 1:25pm Comment on above: Take 20 mg by mouth once daily. lisdexamfetamine dimesylate 30 mg oral capsule (1 source) Central Nervous System Stimulant take 1 capsule by mouth once daily lisdexamfetamine (VYVANSE) 30 mg capsule Take 30 mg by mouth once daily. 0 Active meclizine hydrochloride 12.5 mg oral tablet (3 sources) Antiemetic Start: 023 take 1 tablet by mouth every six hours as needed for dizziness and dizziness meclizine (ANTIVERT) 12.5 mg tab Indications: Dizziness Take 1 tablet by mouth every 6 hours as needed (dizziness). 20 tablet 02/17/2023 Active Comment on above: Take 1 tablet by makayla th every 6 hours as needed (dizziness). Inqhokcglpkc-Jsnj-Rgbyn Acid (Centrum Women) 18-400 mg-mcg tablet (7 sources) Start: Wlhqvbuovxnd-Rfvs-Tbeh c Acid (Centrum Women) 18-400 mg-mcg tablet Active 1 {tbl} PO DAILY April 20, 2023 12:00am Start: 04-20-2023 take 1 tablet by makayla th once daily Wdbxlxqaxspw-Ncht-Qblwu Acid (Centrum Women) 18-400 mg-mcg tablet Active 1 TABLET PO DAILY April 20, 2023 12:00am naproxen 500 mg oral tablet (7 sources) Nonsteroidal Anti-inflammatory Drug Start: 10-06-2012 take 1 tablet by mouth every twelve hours as needed naproxen 500 mg tablet Take 1 tablet by mouth twice daily as needed. FOR PAIN. TAKE WITH FOOD. 0 10/06/2012 Active Comment on above: Take 1 tablet by makayla th twice daily as needed. FOR PAIN. TAKE WITH FOOD. predniSONE 10 mg oral tablet (2 sources) Start: 09-20-2023 predniSONE (DELTASONE) 10 mg tablet Indications: Upper respiratory tract infection, unspecified type Take 4 tabs daily for 3 days, then 2 tabs daily for 3 days, then 1 tab daily for 3 days with food. 21 tablet 09/20/2023 Active Comment on above: Take 4 tabs daily fo r 3 days, then 2 tabs daily for 3 days, then 1 tab daily for 3 days with food. Smkocfxb-Vt-Fng-F e-FA tab (7 sources) take 1 tablet by mouth once Poqzqmzt-Av-Rpq-F e-FA tab Take 1 tablet by mouth. Active take 1 tablet by mouth once Pren atal Vsvzbexr-Sb-Sqz-Fe-FA tab Take 1 tablet by mouth. 0 Active Comment on above: Take 1 tablet by makayla th. Completed/Discontinued Medications Medication Drug Class(es) Dates Sig (Normalized) Sig (Original) cholecalciferol 0.025 mg oral capsule (7 sources) Vitamin D Start: 3 End: 5 take 1 capsule by mouth once daily Cholecalciferol (Vitamin D3) (Vitamin D3) 25 mcg (1,000 unit) capsule Discontinued 25 ug PO DAILY April 20, 2023 12:00am May 14, 2025 11:27am Low levels FLUoxetine 20 mg oral capsule (20 sources) Serotonin Reuptake Inhibitor Start: 3 End: 3 take 1 capsule by mouth once daily Fluoxetine 20 mg capsule Discontinued 0 .ROUTE .COMPLEX 15 10March 28, 2023 8:55am April 20, 2023 11:25am TAKE 1 CAPSULE BY MOUTH EVERY DAY hydroCHLOROthiazide 12.5 mg oral tablet (18 sources) Thiazide Diuretic Start: 3 End: 4 take 1 tablet by mouth once daily Hydrochlorothiazide 12.5 mg tablet Discontinued 12.5 mg PO DAILY 15 09May 19, 2023 12:22pm May 30, 2024 7:57am Comment on above: Take 1 tablet by makayla th every afternoon. Multivitamin preparation (7 sources) Start: 8 End: 3 take 1 tablet by mouth once daily in the morning Multivitamin Discontinued 1 TABLET PO EVERY MORNING February 02, 2018 12:00am April 20, 2023 11:23am Start: 02-02-2018 take 1 tablet by makayla th once daily in the morning Multivitamin Active 1 TABLET PO EVERY MORNING February 01, 2018 11:00pm Start: 02-02-2018 take 1 tablet by makayla th once daily in the morning Multivitamin Active 1 TABLET PO EVERY MORNING February 02, 2018 12:00am Multivitamin tablet (4 sources) Start: 02-02-2018 End: 04-20-2023 Multivitamin tablet Discontinued 1 {tbl} PO EVERY MORNING February 02, 2018 12:00am April 20, 2023 11:23am omeprazole 20 mg delayed release oral capsule (7 sources) Proton Pump Inhibitor Start: 04-04-2023 End: 11-10-2023 take 1 capsule by mouth once daily as needed Omeprazole 20 mg capsule,delayed release(DR/EC) Discontinued 20 mg PO DAILY as needed April 04, 2023 12:00am November 10, 2023 2:59pm phentermine hydrochloride 37.5 mg oral tablet (20 sources) Sympathomimetic Amine Anorectic Start: 08-09-2023 End: 11-08-2023 take 1 tablet by mouth once daily Phentermine (Adipex-P) 37.5 mg tablet Discontinued 37.5 mg PO daily August 09, 2023 4:26pm November 08, 2023 5:30pm BMI 44 Start: 06-16-2023 End: 08-09-2023 Phentermine (Adipex-P) 37.5 mg tablet Discontinued 18.75 mg PO daily 15 0 June 16, 2023 7:47am August 09, 2023 4:30pm BMI 45 Start: 03-25-2023 End: 04-20-2023 Phentermine (Adipex-P) 37.5 mg tablet Discontinued 18.75 mg PO daily 16 0 March 25, 2023 12:00am April 20, 2023 11:23am BMI 46 Comment on above: Take 1 tablet by makayla th every afternoon. 7.5 mg 24 hr phentermine 11.25 mg / topiramate 69 mg extended release oral capsule (4 sources) Sympathomimetic Amine Anorectic Start: 11-08-19 End: 05-09-20 Phentermine-Topirama te (Qsymia) 11.25-69 mg capsule, ER multiphase 24 hr Discontinued 1 NMA PO DAILY 30 30 2 November 08, 2023 1:00am May 09, 2024 8:12am Vit,Bdrm43-Pqsm-Kgfc c (7 sources) Start: 07-21-20 13 End: 02-03-20 18 take 1 tablet by mouth once daily Vit,Uaao16-Bric-Yirk c Discontinued 1 TABLET PO DAILY July 20, 2013 11:00pm February 02, 2018 6:50am Start: 07-21-2013 End: 02-02-2018 take 1 tablet by mouth once daily Vit,Henq24-Rwwt-Yzljy Discontinued 1 TABLET PO DAILY July 21, 2013 12:00am February 02, 2018 7:50am Vit,Qgkq87-Rxlg-Mzluq 1 TABLET tablet (4 sources) Start: 07-21-2013 End: 02-02-2018 take 1 tablet by mouth once daily Vit,Omzk85-Xlgp-Irzau 1 TABLET tablet Discontinued 1 {tbl} PO DAILY July 21, 2013 12:00am February 02, 2018 7:50am Problems Active Problems Problem Classification Problem Date Documented Date Episodic/Chronic Anxiety disorders (17 sources) Anxiety; Translations: [Anxiety disorder, unspecified] 12-13-2022 Chronic Comment on above: celexa. didn't madeleine ate prozac. counseling encouraged Biliary tract disease (11 sources) Biliary dyskinesia; Translations: [Other specified diseases of gallbladder] 02-10-2020 Episodic Cardiac dysrhythmias (3 sources) Palpitations; Translations: [Palpitations] 04-20-2023 Episodic Conditions associated with dizziness or vertigo (1 source) Dizziness; Translations: [Dizziness and giddiness] Episodic Diabetes mellitus without complication (1 source) Type 2 diabetes mellitus without complications; Translations: [Type 2 diabetes mellitus without complications] Onset: 5 Chronic Essential hypertension (9 sources) Essential hypertension; Translations: [Essential (primary) hypertension] 04-20-2023 Chronic Fracture of lower limb (11 sources) Closed fracture of head of fibula; Translations: [Other fracture of upper and lower end of unspecified fibula, initial encounter for closed fracture] 02-11-2020 Episodic Headache; including migraine (7 sources) Migraine; Translations: [Migraine, unspecified, not intractable, without status migrainosus] Onset: 1 09-14-2011 Chronic Hepatitis (2 sources) Nonalcoholic steatohepatitis (PERALTA); Translations: [Nonalcoholic steatohepatitis (PERALTA)] Onset: 5 Chronic Miscellaneous mental health disorders (16 sources) Binge eating disorder; Translations: [Binge eating disorder] 03-07-2023 Chronic Comment on above: CBT recommended, dis cussed vyvanse or qsymia possibly. has anxiety co existing. very motivated about reading books on the subject- given recommendations. Nonmalignant breast conditions (4 sources) Breast lump; Translations: [Unspecified lump in unspecified breast] 05-18-2024 Episodic Comment on above: left Nutritional deficiencies (8 sources) Vitamin D deficiency; Translations: [Vitamin D deficiency, unspecified] 03-28-2023 Chronic Osteoarthritis (16 sources) Osteoarthritis; Translations: [Unspecified osteoarthritis, unspecified site] 03-04-2023 Chronic Comment on above: recommend 5-10% weig ht reduction. Other liver diseases (16 sources) Fatty (change of) liver, not elsewhere classified; Translations: [Nonalcoholic fatty liver disease] 03-04-2023 Chronic Comment on above: recommend 10-15% ry ght reduction. Other lower respiratory disease (1 source) Cough; Translations: [Acute cough] Episodic Other lower respiratory disease (7 sources) Dyspnea on exertion; Translations: [Other forms of dyspnea] 04-20-2023 Episodic Other lower respiratory disease (6 sources) Snoring; Translations: [Snoring] 05-16-2023 Episodic Comment on above: no sleep apnea Other lower respiratory disease (2 sources) Snoring; Translations: [Other respiratory abnormalities] 05-16-2023 Episodic Other lower respiratory disease (1 source) Cough; Translations: [Acute cough] 10-02-2022 Episodic Other non-traumatic joint disorders (7 sources) Snapping scapula; Translations: [Other specific joint derangements of unspecified shoulder, not elsewhere classified] Onset: 1 09-14-2011 Chronic Other nutritional; endocrine; and metabolic disorders (19 sources) Obesity; Translations: [Obesity, unspecified] Onset: 2 Resolved: 6 12-13-2022 Chronic Comment on above: Nutrition plan: 1999 Balanced calorie restricted nutritional plan. client services vice president consult declinedMedication plan: increase to full tab phentermine control- severe male infertility, need to discussBehavior intervention: recommend daily journal of food intake with electronic methodsExercise plan: increase daily steps and NEAT activity Other nutritional; endocrine; and metabolic disorders (12 sources) Obesity, unspecified; Translations: [Obesity, unspecified] 12-13-2022 Chronic Other nutritional; endocrine; and metabolic disorders (8 sources) Insulin resistance; Translations: [Metabolic syndrome] 03-07-2023 Chronic Comment on above: nl HgA1c 05/07, recom mend 5-10% weight reduction Other nutritional; endocrine; and metabolic disorders (8 sources) Metabolic syndrome; Translations: [Dysmetabolic syndrome X] 03-04-2023 Chronic Other nutritional; endocrine; and metabolic disorders (4 sources) Body mass index 40+ - severely obese 10-28-2023 Chronic Comment on above: SW- 312 03/25/23Initia l goal- 15 lb 5% weight reduction within 3 months of nutritional and medication intervention recommendationsnl labs 05/07- reviewed, ordered EKG and vitamin D Other screening for suspected conditions (not mental disorders or infectious disease) (7 sources) Electrocardiogram abnormal; Translations: [Abnormal electrocardiogram [ECG] [EKG]] Onset: 5 04-20-2023 Episodic Other upper respiratory disease (7 sources) Seasonal allergy; Translations: [Other seasonal allergic rhinitis] Onset: 1 09-14-2011 Chronic Other upper respiratory infections (1 source) Bacterial sinusitis; Translations: [Chronic sinusitis, unspecified] 12-15-2024 Chronic Other upper respiratory infections (5 sources) Acute upper respiratory infection; Translations: [Acute upper respiratory infection, unspecified] Episodic Residual codes; unclassified (7 sources) Daytime hypersomnia; Translations: [Hypersomnia, unspecified] 04-04-2023 Chronic Residual codes; unclassified (3 sources) Hypersomnia, unspecified; Translations: [Hypersomnia, unspecified] 04-04-2023 Chronic Sprains and strains (11 sources) Sprain of ankle; Translations: [Sprain of unspecified ligament of unspecified ankle, initial encounter] 02-11-2020 Episodic Unclassified (18 sources) Body mass index 40+ - severely obese; Translations: [Body mass index (BMI) greater than 40] 12-13-2022 Viral infection (1 source) Viral disease; Translations: [Viral infection, unspecified] Episodic Past or Other Problems Problem Classification Problem Date Documented Da te Episodic/Chronic Abdominal pain (2 sources) Abdominal pain; Translations: [Unspecified abdominal pain] Onset: 07-27-2013 Resolved: 04-12-2016 04-12-2016 Episodic Acquired foot deformities (2 sources) Acquired hallux malleus; Translations: [Other hammer toe(s) (acquired), unspecified foot] Onset: 12-08-2011 Resolved: 04-12-2016 04-12-2016 Chronic Diabetes or abnormal glucose tolerance complicating ; childbirth; or the puerperium (2 sources) Abnormal glucose level; Translations: [Abnormal glucose complicating ] Onset: 07-13-2012 Resolved: 10-31-2012 10-12-2021 Episodic Female infertility (2 sources) Female infertility; Translations: [Female infertility of other origin] Onset: 12-31-2009 Resolved: 10-31-2012 04-26-2024 Chronic Malposition; malpresentation (2 sources) Breech presentation; Translations: [Maternal care for breech presentation, not applicable or unspecified] Onset: 07-26-2012 Resolved: 10-31-2012 10-12-2021 Episodic Other bone disease and musculoskeletal deformities (2 sources) Other specified disorders of cartilage, unspecified sites; Translations: [Other disorders of bone and cartilage] Onset: 07-27-2011 Resolved: 10-31-2012 10-31-2012 Episodic Other complications of (2 sources) Vomiting of , unspecified; Translations: [Unspecified vomiting of , unspecified as to episode of care or not applicable] Onset: 02-25-2012 Resolved: 09-08-2012 10-12-2021 Episodic Other endocrine disorders (2 sources) Cyst of pineal gland; Translations: [Other specified endocrine disorders] Onset: 06-17-2011 Resolved: 07-28-2012 10-12-2021 Episodic Other nervous system disorders (2 sources) Abnormal gait; Translations: [Unspecified abnormalities of gait and mobility] Onset: 09-24-2011 Resolved: 10-31-2012 10-31-2012 Episodic Other and delivery including normal (2 sources) Normal in primigravida; Translations: [Encounter for supervision of normal first , unspecified trimester] Onset: 03-23-2012 Resolved: 10-31-2012 10-31-2012 Episodic Results Test Name Value Interpretation Reference Range Facility Abdomen Limitedon 05-30-2025 Abdomen Limited [facility] Imaging Services [address] [place] [id number] Abdomen Limited MR#: [id number] Acct: [id number] Name: MANUEL HARRIS Rep #: [id number] : 1980 F 44 From: Seth espinoza MD PCP: Dr. Napoleon Chambers DO Status: REG CLI Study: Abdomen Limited Date of Exam: 05/30/25 Exam# [id number] Ordering Dr: Napoleon Chambers DO PROCEDURE: ABDOMEN LIMITED 05/30/2025 REASON FOR EXAM: PERALTA/ASSESS DEGREE OF STEATOSIS COMPARISON: Prior study dated January 13, 2019. FINDINGS: Liver: Diffusely echogenic suggesting fatty infiltration. Hepatomegaly. The liver measures 19.6 cm. Gallbladder: Surgically absent. Common bile duct: Dilated measuring up to 7.3 mm. This may be normal for the post cholecystectomy state. . Pancreas: Normal Other: Visualized portions of the right kidney are unremarkable. No right upper quadrant ascites. US/Abdomen Limited IMPRESSION: Fatty infiltration of the liver. Hepatomegaly. Reading Location: [place] [address] CC: Dr. Napoleon Chambers DO Dray Truck Driver: Signed Normal [facility] Absolute lymphocyte countOrd ered By: Napoleon Chambers on 05-22-2025 Lymphocytes Auto (Unsp spec) [#/Vol] 2.09 10*3/uL 0.83-4.51 [facility] Absolute neutrophil countOrd ered By: Napoleon Chambers on 05-22-2025 Neutrophils (Bld) [#/Vol] 4.2 10*3/uL 2.0-7.7 [facility] Anion gap in Serum or Plasma Ordered By: Napoleon Chambers on 05-22-2025 Anion gap [Moles/Vol] 13 mmol/L 5-15 [facility] Automated lymphocyte count a s percentage of total leukocytesOrdered By: Napoleon Chambers on 05-22-2025 Lymphocytes/100 WBC Auto (Unsp spec) 28.6 % 19-41 [facility] BUN/creatinine ratioOrdered By: Napoleon Chambers on 05-22-2025 Urea nitrogen/Creatinine [Mass ratio] 16.5 mg/mg 10-20 [facility] Basophil percentageOrdered B y: Napoleon Chambers on 05-22-2025 Basophils/100 WBC (Bld) 1.0 % 0-1 [facility] Bilirubin, totalOrdered By: Napoleon Chambers on 05-22-2025 Bilirubin [Mass/Vol] 0.33 mg/dL 0.00-1.30 [facility] CBC W/Diff, Automatedon Absolute Lymph 2.09 X10 3/uL Normal 0.83-4.51 [facility] Comment on above: Performed By: #### L 500.4050, L500.4100, L100.0100, L501.9985, L501.9520 #### [facility] [address] [facility] [place], [address] Absolute Neut 4.2 X10 3/uL Normal 2.0-7.7 [facility] Comment on above: Performed By: #### L 500.4050, L500.4100, L100.0100, L501.9985, L501.9520 #### [facility] [address] [place], [address] Basophils/100 WBC (Bld) 1.0 % Normal 0-1 [facility] Comment on above: Performed By: #### L 500.4050, L500.4100, L100.0100, L501.9985, L501.9520 #### [facility] [address] [place], [address] Eosinophils/100 WBC (Bld) 7.0 % High 0-5 [facility] Comment on above: Performed By: #### L 500.4050, L500.4100, L100.0100, L501.9985, L501.9520 #### [facility] [address] [place], [address] Erythrocyte distribution width (RBC) [Ratio] 16.0 % High 11.6-14.6 [facility] Comment on above: Performed By: #### L 500.4050, L500.4100, L100.0100, L501.9985, L501.9520 #### [facility] [address] [place], [address] Hematocrit (Bld) [Volume fraction] 37.4 % Normal 37-47 [facility] Comment on above: Performed By: #### L 500.4050, L500.4100, L100.0100, L501.9985, L501.9520 #### [facility] [address] [place], [address] Hemoglobin (Bld) [Mass/Vol] 11.6 g/dL Low 12.0-15.0 [facility] Comment on above: Performed By: #### L 500.4050, L500.4100, L100.0100, L501.9985, L501.9520 #### [facility] [address] [place], [address] IG% 0.300 Normal 0.0-0.9 [facility] Comment on above: Result Comment: IG% - Immature Granulocytes (promyelocytes, myelocytes and metamyelocytes) > 1% indicates that a LEFT SHIFT is Present. Performed By: #### L 500.4050, L500.4100, L100.0100, L501.9985, L501.9520 #### [facility] [address] [place], [address] Lymphocytes/100 WBC (Bld) 28.6 % Normal 19-41 [facility] Comment on above: Performed By: #### L 500.4050, L500.4100, L100.0100, L501.9985, L501.9520 #### [facility] [address] [place], [address] MCH (RBC) [Entitic mass] 24.1 pg Low 27.0-32.0 [facility] Comment on above: Performed By: #### L 500.4050, L500.4100, L100.0100, L501.9985, L501.9520 #### [facility] [address] [place], [address] MCHC (RBC) [Mass/Vol] 31.0 g/dL Low 32-36 [facility] Comment on above: Performed By: #### L 500.4050, L500.4100, L100.0100, L501.9985, L501.9520 #### [facility] [address] [place], [address] MCV (RBC) [Entitic vol] 77.6 fL Low 81-99 [facility] Comment on above: Performed By: #### L 500.4050, L500.4100, L100.0100, L501.9985, L501.9520 #### [facility] [address] [place], [address] Monocytes/100 WBC (Bld) 6.4 % Normal 0-10 [facility] Comment on above: Performed By: #### L 500.4050, L500.4100, L100.0100, L501.9985, L501.9520 #### [facility] [address] [place], [address] Neutrophils/100 WBC (Bld) 56.7 % Normal 47-70 [facility] Comment on above: Performed By: #### L 500.4050, L500.4100, L100.0100, L501.9985, L501.9520 #### [facility] [address] [place], [address] Nucleated RBC (Bld) [#/Vol] 0 10*3/uL Normal 0-5 [facility] Comment on above: Performed By: #### L 500.4050, L500.4100, L100.0100, L501.9985, L501.9520 #### [facility] [address] [place], [address] Platelet mean volume (Bld) [Entitic vol] 9.2 fL Normal 6.2-12.0 [facility] Comment on above: Performed By: #### L 500.4050, L500.4100, L100.0100, L501.9985, L501.9520 #### [facility] [address] [place], [address] Platelets (Bld) [#/Vol] 386 10*3/uL Normal 150-450 [facility] Comment on above: Performed By: #### L 500.4050, L500.4100, L100.0100, L501.9985, L501.9520 #### [facility] [address] [place], [address] RBC (Bld) [#/Vol] 4.82 10*6/uL Normal 4.2-5.4 [facility] Comment on above: Performed By: #### L 500.4050, L500.4100, L100.0100, L501.9985, L501.9520 #### [facility] [address] [place], [address] RDW SD 45.5 fl High 35.1-43.9 [facility] Comment on above: Performed By: #### L 500.4050, L500.4100, L100.0100, L501.9985, L501.9520 #### [facility] [address] [place], [address] WBC (Bld) [#/Vol] 7.3 10*3/uL Normal 4.4-11.0 [facility] Comment on above: Performed By: #### L 500.4050, L500.4100, L100.0100, L501.9985, L501.9520 #### [facility] [address] [place], [address] Calculated very low density lipoprotein (VLDL) cholesterol measurementOrdered By: Napoleon Chambers on 05-22-2025 Calculated very low density lipoprotein (VLDL) cholesterol measurement 16 mg/dL 5-40 [facility] Carbon dioxide, total [Moles /volume] in Central venous bloodOrdered By: Napoleon Chambers on 05-22-2025 CO2 [Moles/Vol] 21.8 mmol/L 21.0-32.0 [facility] Chloride assayOrdered By: Radha Chambers on 05-22-2025 Chloride [Moles/Vol] 103 mmol/L 98-108 [facility] Comprehensive Metabolic Prof ilon 05-22-2025 Albumin [Mass/Vol] 3.8 g/dL Normal 3.5-5.0 [facility] Comment on above: Performed By: #### L 500.4050, L500.4100, L100.0100, L501.9985, L501.9520 #### [facility] [address] [place], [address] Albumin/Globulin [Mass ratio] 1.1 {ratio} Normal 0.9-2.4 [facility] Comment on above: Performed By: #### L 500.4050, L500.4100, L100.0100, L501.9985, L501.9520 #### [facility] [address] [place], [address] ALK PHOS 87 U/L Normal 35-104 [facility] Comment on above: Performed By: #### L 500.4050, L500.4100, L100.0100, L501.9985, L501.9520 #### [facility] [address] [place], [address] ALT [Catalytic activity/Vol] 49 U/L High <=34 [facility] Comment on above: Performed By: #### L 500.4050, L500.4100, L100.0100, L501.9985, L501.9520 #### [facility] [address] [place], [address] AST [Catalytic activity/Vol] 38 U/L High <=31 [facility] Comment on above: Performed By: #### L 500.4050, L500.4100, L100.0100, L501.9985, L501.9520 #### [facility] [address] [place], [address] Bilirubin [Mass/Vol] 0.33 mg/dL Normal 0.00-1.30 [facility] Comment on above: Performed By: #### L 500.4050, L500.4100, L100.0100, L501.9985, L501.9520 #### [facility] [address] [place], [address] BUN/CRE 16.5 RATIO Normal 10-20 [facility] Comment on above: Performed By: #### L 500.4050, L500.4100, L100.0100, L501.9985, L501.9520 #### [facility] [address] [place], [address] Calcium [Mass/Vol] 8.9 mg/dL Normal 7.6-11.0 [facility] Comment on above: Performed By: #### L 500.4050, L500.4100, L100.0100, L501.9985, L501.9520 #### [facility] [address] [place], [address] Chloride [Moles/Vol] 103 mmol/L Normal 98-108 [facility] Comment on above: Performed By: #### L 500.4050, L500.4100, L100.0100, L501.9985, L501.9520 #### [facility] [address] [place], [address] CO2 [Moles/Vol] 21.8 mmol/L Normal 21.0-32.0 [facility] Comment on above: Performed By: #### L 500.4050, L500.4100, L100.0100, L501.9985, L501.9520 #### [facility] [address] [place], [address] Creatinine [Mass/Vol] 0.63 mg/dL Low 0.70-1.20 [facility] Comment on above: Performed By: #### L 500.4050, L500.4100, L100.0100, L501.9985, L501.9520 #### [facility] [address] [place], [address] GAP 13 Normal 5-15 [facility] Comment on above: Performed By: #### L 500.4050, L500.4100, L100.0100, L501.9985, L501.9520 #### [facility] [address] [place], [address] GFR/1.73 sq M.predicted among non-blacks MDRD (S/P/Bld) [Vol rate/Area] 113 mL/min/{1.73_m2} Normal >60 [facility] Comment on above: Result Comment: mL/m in/1.73m2 CKD-EPI Creatinine Equation (2020) Performed By: #### L 500.4050, L500.4100, L100.0100, L501.9985, L501.9520 #### [facility] [address] [place], [address] Globulin (S) [Mass/Vol] 3.4 g/dL Normal 2.2-4.2 [facility] Comment on above: Performed By: #### L 500.4050, L500.4100, L100.0100, L501.9985, L501.9520 #### [facility] [address] [place], [address] Glucose [Mass/Vol] 125 mg/dL High 70-99 [facility] Comment on above: Performed By: #### L 500.4050, L500.4100, L100.0100, L501.9985, L501.9520 #### [facility] [address] [place], [address] Potassium [Moles/Vol] 4.1 mmol/L Normal 3.3-5.1 [facility] Comment on above: Performed By: #### L 500.4050, L500.4100, L100.0100, L501.9985, L501.9520 #### [facility] [address] [place], [address] Sodium [Moles/Vol] 138 mmol/L Normal 133-145 [facility] Comment on above: Performed By: #### L 500.4050, L500.4100, L100.0100, L501.9985, L501.9520 #### [facility] [address] [place], [address] T PROT 7.3 g/dL Normal 5.9-8.4 [facility] Comment on above: Performed By: #### L 500.4050, L500.4100, L100.0100, L501.9985, L501.9520 #### [facility] [address] [place], [address] Urea nitrogen [Mass/Vol] 10 mg/dL Normal 4-19 [facility] Comment on above: Performed By: #### L 500.4050, L500.4100, L100.0100, L501.9985, L501.9520 #### [facility] [address] [place], [address] Eosinophil percentageOrdered By: Napoleon Chambers on 05-22-2025 Eosinophils/100 WBC (Bld) 7.0 % High 0-5 [facility] Erythrocyte distribution wid th ratioOrdered By: Napoleon Chambers on 05-22-2025 Erythrocyte distribution width (RBC) [Ratio] 16.0 % High 11.6-14.6 [facility] Erythrocyte distribution wid th standard deviationOrdered By: Napoleon Chambers on 05-22-2025 Erythrocyte distribution width (RBC) [Ratio] 45.5 fl High 35.1-43.9 [facility] Glomerular filtration rate ( GFR) estimation/1.73 sq m using serum, plasma, or whole bOrdered By: Napoleon Chambers on 05-22-2025 GFR/1.73 sq M.predicted among non-blacks MDRD (S/P/Bld) [Vol rate/Area] 113 mL/min/{1.73_m2} >60 [facility] Comment on above: mL/min/1.73m2 CKD-EP I Creatinine Equation (2020) Hematocrit Auto (Bld) [Volum e fraction]Ordered By: Napoleon Chambers on 05-22-2025 Hematocrit (Bld) [Volume fraction] 37.4 % 37-47 [facility] Hemoglobin A1con 05-22-2025 HbA1c (Bld) [Mass fraction] 6.9 % High <=5.6 [facility] Comment on above: Result Comment: Norm al < 5.7 % Prediabetic 5.7 - 6.4 % Diabetic >or= 6.5 % Please note range changes. Performed By: #### L 500.4050, L500.4100, L100.0100, L501.9985, L501.9520 #### [facility] [address] [place], [address] Hemoglobin A1c percentageOrd ered By: Napoleon Chambers on 05-22-2025 HbA1c (Bld) [Mass fraction] 6.9 % High <5.7 [facility] Comment on above: Normal < 5.7 % Predi abetic 5.7 - 6.4 % Diabetic >or= 6.5 % Please note range changes. Hemoglobin measurementOrdere d By: Napoleon Chambers on 05-22-2025 Hemoglobin (Bld) [Mass/Vol] 11.6 g/dL Low 12.0-15.0 [facility] Immature granulocytes/100 WB C Auto (Bld)Ordered By: Napoleon Chambers on 05-22-2025 Immature granulocytes/100 WBC (Bld) 0.300 % 0.0-0.9 [facility] Comment on above: IG% - Immature Granu locytes (promyelocytes, myelocytes and metamyelocytes) > 1% indicates that a LEFT SHIFT is Present. LDL calc ser/plasOrdered By: Napoleon Chambers on 05-22-2025 Cholesterol in LDL [Mass/Vol] 86 mg/dL [facility] Comment on above: Nhjvdxjyqg=124-249 m g/dL & Higher Qntu=876 mg/dL or greaterFriedwald Equation for LDL-C Laboratory - Chemistry and C hemistry - challengeOrdered By: Napoleon Chambers on 05-22-2025 AST [Catalytic activity/Vol] 38 U/L High <32 [facility] Lipid Profileon 05-22-2025 CHOL:HDL 2.77 Normal [facility] Comment on above: Performed By: #### L 500.4050, L500.4100, L100.0100, L501.9985, L501.9520 #### [facility] [address] [place], [address] Cholesterol [Mass/Vol] 159 mg/dL Normal <=200 [facility] Comment on above: Result Comment: Chol esterol level, Desirable <200 mg/dL Borderline high cholesterol 200-239 mg/dL High cholesterol >=240 mg/dL Recommendations of the NCEP Adult Treatment Panel for the following risk-cutoff thresholds for the [place] population. Performed By: #### L 500.4050, L500.4100, L100.0100, L501.9985, L501.9520 #### [facility] [address] [place], [address] Cholesterol in HDL [Mass/Vol] 57 mg/dL Normal [facility] Comment on above: Result Comment: Fadia onal Cholesterol Education Program (NCEP) guidelines: <40 mg/dL: Low HDL-cholesterol (major risk factor for CHD) >= 60 mg/dL: High HDL-cholesterol (negative risk factor for CHD) HDL-cholesterol is affected by a number of factors, e.g. smoking, exercise, hormones, sex and age. Performed By: #### L 500.4050, L500.4100, L100.0100, L501.9985, L501.9520 #### [facility] [address] [place], [address] Cholesterol in LDL [Mass/Vol] 86 mg/dL Normal [facility] Comment on above: Result Comment: Bord fbxglt=652-867 mg/dL Higher Grns=508 mg/dL or greater Friedwald Equation for LDL-C Performed By: #### L 500.4050, L500.4100, L100.0100, L501.9985, L501.9520 #### [facility] [address] [place], [place], [id number] Cholesterol in VLDL [Mass/Vol] 16 mg/dL Normal 5-40 [facility] Comment on above: Performed By: #### L 500.4050, L500.4100, L100.0100, L501.9985, L501.9520 #### [facility] [address] [place], [place], [id number] Triglyceride [Mass/Vol] 79 mg/dL Normal [facility] Comment on above: Result Comment: The drugs N-Acetylcysteine and Metamizole may falsely depress this assay. Normal range: <150 mg/dL Borderline High: 150-199 mg/dL High: 200-499 mg/dL Very High: >500 mg/dL Performed By: #### L 500.4050, L500.4100, L100.0100, L501.9985, L501.9520 #### [facility] [address] [place], [place], [id number] MCV (mean corpuscular volume ) determinationOrdered By: Napoleon Chambers on 05-22-2025 MCV (RBC) [Entitic vol] 77.6 fL Low 81-99 [facility] Mean corpuscular hemoglobin (MCH) determinationOrdered By: Napoleon Chambers on 05-22-2025 MCH (RBC) [Entitic mass] 24.1 pg Low 27.0-32.0 [facility] Mean corpuscular hemoglobin concentration (MCHC) determinationOrdered By: Napoleon Chambers on 05-22-2025 MCHC (RBC) [Mass/Vol] 31.0 g/dL Low 32-36 [facility] Mean platelet volume determi nationOrdered By: Napoleon Chambers on 05-22-2025 Platelet mean volume (Bld) [Entitic vol] 9.2 fL 6.2-12.0 [facility] Monocyte percentageOrdered B y: Napoleon Chambers on 05-22-2025 Monocytes/100 WBC (Bld) 6.4 % 0-10 [facility] Neutrophil percentageOrdered By: Napoleon Chambers on 05-22-2025 Neutrophils/100 WBC (Bld) 56.7 % 47-70 [facility] Nucleated red blood cell per centageOrdered By: Napoleon Chambers on 05-22-2025 Nucleated RBC/100 WBC (Bld) [Ratio] 0 % 0-5 [facility] Platelet countOrdered By: Radha Chambers on 05-22-2025 Platelets (Bld) [#/Vol] 386 10*3/uL 150-450 [facility] Potassium measurement (mass/ volume)Ordered By: Napoleon Chambers on 05-22-2025 Potassium (Unsp spec) [Mass/Vol] 4.1 mmol/L 3.3-5.1 [facility] RBC Auto (Bld) [#/Vol]Ordere d By: Napoleon Chambers on 05-22-2025 RBC (Bld) [#/Vol] 4.82 10*6/uL 4.2-5.4 [facility] Screening total cholesterol/ high density lipoprotein (HDL) cholesterol ratioOrdered By: Napoleon Chambers on 05-22-2025 Cholesterol.total/Choles terol in HDL [Mass ratio] 2.77 {ratio} [facility] Serum creatinine measurement (mass/volume)Ordered By: Napoleon Chambers on 05-22-2025 Creatinine [Mass/Vol] 0.63 mg/dL Low 0.70-1.20 [facility] Serum globulin measurementOr dered By: Napoleon Chambers on 05-22-2025 Globulin (S) [Mass/Vol] 3.4 g/dL 2.2-4.2 [facility] Serum glucose measurement (m ass/volume)Ordered By: Napoleon Chambers on 05-22-2025 Glucose [Mass/Vol] 125 mg/dL High 70-99 [facility] Serum or plasma alanine mccullough otransferase (ALT) measurementOrdered By: Napoleon Chambers on 05-22-2025 ALT [Catalytic activity/Vol] 49 U/L High <35 [facility] Serum or plasma albumin jerald urement (mass/volume)Ordered By: Napoleon Chambers on 05-22-2025 Albumin [Mass/Vol] 3.8 g/dL 3.5-5.0 [facility] Serum or plasma albumin/glob ulin mass ratioOrdered By: Napoleon Chambers on 05-22-2025 Albumin/Globulin [Mass ratio] 1.1 {ratio} 0.9-2.4 [facility] Serum or plasma alkaline christelle sphatase measurementOrdered By: Napoleon Chambers on 05-22-2025 ALP [Catalytic activity/Vol] 87 U/L 35-104 [facility] Serum or plasma calcium jerald urement (mass/volume)Ordered By: Napoleon Chambers on 05-22-2025 Calcium [Mass/Vol] 8.9 mg/dL 7.6-11.0 [facility] Serum or plasma cholesterol in HDL measurement (mass/volume)Ordered By: Napoleon Chambers on 05-22-2025 Cholesterol in HDL [Mass/Vol] 57 mg/dL >40 [facility] Comment on above: National Cholesterol Education Program (NCEP) guidelines:<40 mg/dL: Low HDL-cholesterol (major risk factor for CHD)>= 60 mg/dL: High HDL-cholesterol (negative risk factor for CHD)HDL-cholesterol is affected by a number of factors, e.g. smoking, exercise, hormones, sex and age. Serum or plasma cholesterol measurement (mass/volume)Ordered By: Napoleon Chambers on 05-22-2025 Cholesterol [Mass/Vol] 159 mg/dL <201 [facility] Comment on above: Cholesterol level, D esirable <200 mg/dLBorderline high cholesterol 200-239 mg/dLHigh cholesterol >=240 mg/dLRecommendations of the NCEP Adult Treatment Panel for the following risk-cutoff thresholds for the [place] population. Serum or plasma urea nitroge n measurement (mass/volume)Ordered By: Napoleon Chambers on 05-22-2025 Urea nitrogen [Mass/Vol] 10 mg/dL 4-19 [facility] Sodium levelOrdered By: Napoleon Chambers on 05-22-2025 Sodium [Moles/Vol] 138 mmol/L 133-145 [facility] TSH DL <= 0.005 mIU/L QnOrde red By: Napoleon Chambers on 05-22-2025 TSH Qn 0.897 uIU/mL 0.300-4.200 [facility] Thyroid Stim Hormone (TSH)on 05-22-2025 TSH 0.897 uIU/mL Normal 0.300-4.200 [facility] Comment on above: Performed By: #### L 500.4050, L500.4100, L100.0100, L501.9985, L501.9519 #### [facility] [place], [address] Total proteinOrdered By: Yamileth Chambers on 05-22-2025 Protein [Mass/Vol] 7.3 g/dL 5.9-8.4 [facility] Triglycerides measurementOrd ered By: Napoleon Chambers on 05-22-2025 Triglyceride [Mass/Vol] 79 mg/dL <199 [facility] Comment on above: The drugs N-Acetylcy steine and Metamizole may falsely depress this assay. Normal range: <150 mg/dLBorderline High: 150-199 mg/dLHigh: 200-499 mg/dLVery High: >500 mg/dL White blood cell (WBC) count Ordered By: Napoleon Chambers on 05-22-2025 WBC (Bld) [#/Vol] 7.3 10*3/uL 4.4-11.0 [facility] Osteopathic Medicine Teacher Office Visit Reporton 05-14-2025 Osteopathic Medicine Teacher Office Visit Report [facility], [address] [place] [address] OFFICE VISIT Date of Service: 05/14/25 MR#: [id number] Acct: [id number] Name: MANUEL HARRIS Rep #: [id number] : 1980 Provider: PHUONG hdez Age/Sex: 44/F Location: [facility] [place] Status: Signed Intake Vital Signs 05/23/24 08:05 05/14/25 11:19 05/14/25 11:27 Height 5 ft 9 in 5 ft 9 in 5 ft 9 in Weight: 299 lb 310 lb 6 oz BMI 44.1 45.8 BP 129/82 H 140/82 H Blood Pressure Location Rt brachial Position Sitting Respiration 17 Pulse 78 Pulse Source Monitor Temp 97 F L Pulse Oximetry (%) 98 Oxygen Delivery Method room air 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) Chief Complaint: Annual [employer]ra[employer] Worker Required: No Is patient in pain?: No Allergies sulfamethoxazole (From ) Allergy (Verified 05/14/25 11:30) Rash trimethoprim (From ) Allergy (Verified 05/14/25 11:30) Rash Medications ???Medication ???Instructions ???Recorded ???Confirmed ???Type multivitamin-ferrous 1 tab PO DAILY 04/20/23 05/14/25 H istory fumarate-folic acid 18 mg-400 mcg tablet (Centrum Women) cetirizine 10 mg tablet (Zyrtec) 10 mg PO DAILY 04/26/23 05/14/25 H istory citalopram 20 mg tablet (Celexa) 20 mg PO DAILY 04/26/23 05/14/25 H istory hydrochlorothiazide 12.5 mg tablet 12.5 mg PO DAILY #90 TABLETS 05/14/25 Rx Is last menstrual period known: Yes Last Menstrual Period: 05/02/25 Post menopausal: No Patient : No : No PFSH Medical History Abnormal EKG Palpitations Essential hypertension BPPV (benign paroxysmal positional vertigo) Daytime hypersomnia Vitamin D deficiency Binge eating disorder Insulin resistance Fatty liver disease, nonalcoholic Osteoarthritis BMI greater than 40 Obesity Anxiety Gastritis Surgical History History of ankle surgery History of cholecystectomy S/P hammer toe correction S/P medial meniscal repair S/P tonsillectomy S/P section Family History Mother Diabetes Thyroid disorder Lupus Arthritis Sleep apnea Anxiety Sister CVA (cerebral vascular accident), Onset Age: 30 Anxiety PFO (patent foramen ovale) Celiac disease Father Hypertension Daughter Anxiety Other Bleeding disorder Social History (Updated 05/14/25 @ 11:36 by Dia García NP, HAND DRAWER IN HELPER-[employer]) household members: spouse and children number of children: 1 current occupational status: employed current occupation: [employer], [employer] Smoking Status: Former smoker alcohol intake: current alcohol intake frequency: holidays/special occasions only substance use type: does not use seatbelt use: always do you feel safe at home: Yes additional social history: [employer] at [employer] History 1 Elective abortions Hx Para 1 Spontaneous abortions Hx # Term Pregnancies 1 Ectopic pregnancies Hx # Pregnancies Multiple births # of living children 1 Past Pregnancies Del. Date Name GA/Weeks Outcome Route Bth Weight Infant Gen Labor Lgth Anesthesia Del Locatn Provider FOB Unknown Nas 2011 HPI Encounter for routine gynecological examination Details: MANUEL HARRIS is a 44 year old who presents for annual exam. Denies concerns. 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, [place] Last PAP: 2022 History of abnormal PAP: no Last mammogram: 04/2024 History of abnormal mammogram: benign bx Colon cancer screening: age 46 Other preventative health care screenings: Trish Female Reproductive History Last Menstrual Period: 05/02/25 Cycle Length: 21-35 Questions: metorrhagia: No, sexually active: Yes, dyspareunia: No and PCB: No ROS Const Constitutional: Denies fatigue, weight gain or weight loss Cardio Card: Denies chest pain Resp Resp: Denies cough or dyspnea on exertion GI GI: Denies abdominal pain, bloating, change in stool character, constipation or vomiting : Reports as per HPI; Denies difficulty voiding, pelvic pain, urinary frequency, urinary incontinence, urinary urgency, vaginal discharge or vaginal pruritus Exam Const General: cooperative, healthy appearing, no acute distress and well developed Orientation: alert, oriented to person and oriented to place HENW[place] Head: normal to inspection Neck Neck: normal visual inspection Thyroid: thyroid normal Lymphatic: no lymphadenopathy noted Chest Breast inspection: normal inspection of the breasts and normal inspection of the axillae Breast palpation: normal palpation of the breasts, normal palpation of the axillae and no axillary lymphadenopathy R (more content not included)... Normal [facility] Breast Limited Unilateralon 12-17-2024 Breast Limited Unilateral [facility] Imaging Services [address] [place], [place] [id number] Breast Limited Unilateral MR#: [id number] Acct: [id number] Name: MANUEL HARRIS Rep #: [id number] : 1980 F 44 From: Seth espinoza MD PCP: Dr. Napoleon Chambers, DO Status: REG CLI Study: Breast Limited Unilateral Date of Exam: Exam# [id number] Ordering Dr: Kamla Keita MD PROCEDURE: BREAST LIMITED UNILATERAL REASON FOR EXAM: Six-month follow-up of left breast biopsy. COMPARISON: Comparison is made with prior sonogram dated May 17, 2024. TECHNIQUE: Targeted bilateral breast ultrasound. FINDINGS: LEFT: Ultrasound targeted to the upper lateral aspect of the left breast. Dense fibroglandular tissue. A tissue clip marker is seen at the 4 o'clock position of the left breast at 4 cm from the nipple. Stable 1 cm x 0.9 cm hypoechoic nodule at that site. US/Breast Limited Unilateral IMPRESSION: Stable examination. A tissue clip is seen at the biopsy site. BI-RADS 2: BENIGN. RECOMMEND ANNUAL MAMMOGRAPHIC SCREENING. Reading Location: [id number] CC: Dr. Napoleon Chambers DO; Dr. 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 Duration of symptoms 3 weeks. Associated symptoms sinus pressure ear pain. Symptoms improved then worsened again few days ago. OTC medications none today. History of sinus faction. Denies any chest pain shortness of breath pleuritic pain or hemoptysis. Past medical history prescription medications allergies reviewed. .No chief complaint on file. 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 amoxicillin-clavulana te potassium (AUGMENTIN) 875-125 mg per tablet Take 1 tablet by mouth two times a day for 7 days. hydroCHLOROthiazide 12.5 mg tablet Take 1 tablet by mouth every afternoon. Phentermine HCl 37.5 mg tablet Take 1 tablet by mouth every afternoon. 7.5 mg predniSONE (DELTASONE) 10 mg tablet Take 4 tabs daily for 3 days, then 2 tabs daily for 3 days, then 1 tab daily for 3 days with food. meclizine (ANTIVERT) 12.5 mg tab Take 1 tablet by mouth every 6 hours as needed (dizziness). (Patient not taking: Reported on 09/20/2023) citalopram (CELEXA) 20 mg tablet Take 20 mg by mouth once daily. CALCIUM CARBONATE (CALCIUM 600 ORAL) Take by mouth. (Patient not taking: Reported on 10/02/2022) naproxen 500 mg tablet Take 1 tablet by mouth twice daily as needed. FOR PAIN. TAKE WITH FOOD. (Patient not taking: Reported on 10/18/2019 ) Qnliyogw-Qa-Upe-Fe-FA tab Take 1 tablet by mouth. (Patient not taking: Reported on 10/02/2022) FAMILY HISTORY Problem Relation Age of Onset Arthritis Mother DDD DVT Mother after surgery Hypertension Father Diabetes Maternal Grandmother Coronary Artery Disease Paternal Grandmother Heart Paternal Grandmother Colon Cancer Other none Stroke Sister 31 unknown cause Social History Tobacco Use Smoking status: Former Current packs/day: 0.00 Types: Cigarettes Start date: 10/17/1995 Quit date: 10/17/2005 Years since quittin.1 Smokeless tobacco: Never Vaping Use Vaping status: Never Used Substance Use Topics Alcohol use: Yes Comment: social, couple times per month,NOT WHILE Drug use: No BP 126/72 Pulse 84 Temp 36.6 ?C (97.9 ?F) Resp 16 Wt (!) 139 kg (306 lb 7 oz) LMP 11/29/2024 (Exact Date) SpO2 98% BMI 45.25 kg/m? Review of Systems Constitutional: Negative for chills, fever and malaise/fatigue. HENT: Positive for congestion, ear pain and sinus pain. Negative for ear discharge and sore throat. Eyes: Negative for blurred vision, pain, discharge and redness. Respiratory: Negative for cough, hemoptysis, sputum production, shortness of breath, wheezing and stridor. Cardiovascular: Negative for chest pain. Gastrointestinal: Negative for abdominal pain, diarrhea, nausea and vomiting. Musculoskeletal: Negative for myalgias. Skin: Negative for itching and rash. Neurological: Negative for dizziness and headaches. Objective Physical Exam Constitutional: General: She is not in acute distress. Appearance: She is not diaphoretic. HENT: Head: Normocephalic. Jaw: No trismus, tenderness, swelling or pain on movement. Right Ear: Tympanic membrane, ear canal and external ear normal. Left Ear: Tympanic membrane, ear canal and external ear normal. Nose: Congestion present. Right Sinus: Maxillary sinus tenderness present. Left Sinus: Maxillary sinus tenderness present. Mouth/Throat: Mouth: Mucous membranes are moist. Pharynx: Oropharynx is clear. Uvula midline. No pharyngeal swelling, oropharyngeal exudate, posterior oropharyngeal erythema or uvula swelling. Eyes: Conjunctiva/sclera: Conjunctivae normal. Pupils: Pupils are equal, round, and reactive to light. Cardiovascular: Rate and Rhythm: Normal rate and regular rhythm. Heart sounds: Normal heart sounds. Pulmonary: Effort: Pulmonary effort is normal. No tachypnea, accessory muscle usag (more content not included)... Normal [facility] STREP A MOLECULAR (POC)on Procedural Control Valid [facility] Strep A (POCT) Negative Negative [facility] Basophil percentageOrdered B y: Gaudencio Mandujanoan on 05-20-2023 Chloride [Moles/Vol] 105 mmol/L 98-[address] [facility] Glucose [Mass/Vol] 109 mg/dL 74-106 [facility] Comment on above: Fasting Glucose resu lt from 100 to 125 mg/dL suggests IMPAIRED HOMEOSTASIS per A.D.A. criteria. Potassium [Moles/Vol] 3.8 mmol/L 3.5-5.1 [facility] Sodium [Moles/Vol] 139 mmol/L 136-145 [facility] Laboratory - Chemistry and C hemistry - challengeOrdered By: Gaudencio Martell on 05-20-2023 CO2 [Moles/Vol] 29.0 mmol/L 21.0-32.0 [facility] Urea nitrogen/Creatinine [Mass ratio] 18.2 mg/mg 10-20 [facility] No Panel InformationOrdered By: Gaudencio Martell on 05-20-2023 Estimated GFR (MDRD) Amer 106 mL/min >60 [facility] Comment on above: GFR Calc Estimated GFR (MDRD) Non-Af Amer 87 mL/min >60 [facility] Comment on above: Non- GFR Calc Serum or plasma calcitriol m easurement (mass/volume)Ordered By: Dia García on 05-20-2023 1,25-dihydroxyvitamin D3 [Mass/Vol] 40.4 pg/mL 24.8-81.5 [facility] Comment on above: Performed at: [address] [id number] Director: Sherly Wei MD, Phone: [phone] Serum or plasma calcium jerald urement (mass/volume)Ordered By: Gaudencio Martell on 05-20-2023 Calcium [Mass/Vol] 9.0 mg/dL 8.5-10.1 [facility] Serum or plasma creatinine m easurement (mass/volume)Ordered By: Gaudencio Martell on 05-20-2023 Creatinine [Mass/Vol] 0.77 mg/dL 0.55-1.02 [facility] Comment on above: The validity of the calculated GFR & GFRAA in patients over 70 years has not been determined. Clinical correlation is essential. Serum or plasma urea nitroge n measurement (mass/volume)Ordered By: Gaudencio Martell on 05-20-2023 Urea nitrogen [Mass/Vol] 14 mg/dL - [facility] Thin prep Papanicolaou smear with manual screeningOrdered By: Gaudencio Martell on 05-20-2023 Thin prep Papanicolaou smear with manual screening 5 5-15 [facility] Serum or plasma calcitriol m easurement (mass/volume)Ordered By: Dr. Matamoros on 03-23-2023 1,25-dihydroxyvitamin D3 [Mass/Vol] 17.8 pg/mL 24.8-81.5 [facility] Comment on above: Performed at: [address] [id number] Director: hSerly Wei MD, Phone: [phone] STREP A MOLECULAR (POC)on Procedural Control Valid [facility] Strep A (POCT) Positive Abnormal Negative [facility] Cervical or vagninal specime n microscopic examination by cytology stain (reported asOrdered By: Dia García on 12-13-2022 Cytology report Cyto stain Doc (Cvx/Vag) Comment . [facility] Comment on above: The Pap smear is a s creening test designed to aid in thedetection of premalignant and malignant conditions of theuterine cervix. It is not a diagnostic procedure andshould not be used as the sole means of detecting cervicalcancer. Both false-positive and false-negative reports dooccur. Detection in cervical specim en of any of human papilloma virus (HPV) 16, 18, 31, 33,Ordered By: Dia García on 12-13-2022 HPV 16+18+31+33+35+39+45+51+ 52+56+58+59+66+68 DNA Probe+sig amp Ql (Cvx) Negative Negative [facility] Comment on above: This nucleic acid am plification test detects fourteen high-risk HPV types (16,18,31,33,35,39,45,51,52,56,58,59,66,68)without differentiation. Laboratory - CytologyOrdered By: Dia García on 12-13-2022 [employer] Attendant Cyto stain Nom (Cvx/Vag) [ID] Comment . [facility] Comment on above: Farshad Gayte chnologist (ASCP) Laboratory - Miscellaneous t estsOrdered By: Dia García on 12-13-2022 Service comment (Unsp spec) [Interp] Comment . [facility] Comment on above: This liquid based Th inPrep(R) pap test was screened withthe use of an image guided system. Service comment (Unsp spec) [Interp] . . [facility] Liquid-based cerv Pap + CT/G C by LEONARD w reflex to high-risk HPV for ASCUSOrdered By: Dia García on 12-13-2022 Cytology report Cyto stain.thin prep Doc (Cvx/Vag) Comment . [facility] Comment on above: Criteria not met, HP V Genotype not performed.Performed at: [facility] [id number] Director: Laxmi Edge MD, Phone: [phone] at: =[facility] - [facility] [address] [id number] Director: Laxmi Edge MD, Phone: [phone] No Panel InformationOrdered By: Dia García on 12-13-2022 Pathology report final diagnosis Narrative Comment . [facility] Comment on above: NEGATIVE FOR INTRAEP ITHELIAL LESION OR MALIGNANCY. STREP A MOLECULAR (POC)on Procedural Control Valid [facility] Strep A (POCT) Positive Abnormal Negative [facility] STREP A MOLECULAR (POC)on Procedural Control Valid [facility] Strep A (POCT) Negative Negative [facility] X[facility] CHEST [facility] FRONTAL[facility] and Lateralon IMPRESSION: Low lung volumes. No acute radiographic abnormality. Dray Truck Driver: PSCB Transcribe Date/Time: Oct 02 2022 9:01A Dictated by : KEVIN OSEI DO This examination was interpreted and the report reviewed and electronically signed by: KEVIN OSEI DO on Oct 02 2022 9:03AM [facility] DIVISION OF RADIOLOGY * * *Final Report* * * DATE OF EXAM: Oct 02 2022 8:48AM WOX [id number] - XR CHEST 2V FRONTAL/LAT / PROCEDURE REASON: Acute cough * * * * Physician Interpretation * * * * EXAMINATION: CHEST RADIOGRAPH (2 VIEW FRONTAL & LATERAL) PATIENT/TECHNOLOGIST PROVIDED HISTORY: cough CLINICAL HISTORY: 42 years old Female with Acute cough MQ: XC2_6 EXAM DATE/TIME: 10/02/2022 8:48 AM COMPARISON: No relevant prior studies available. RESULT: Lines, tubes, and devices: None. Lungs and pleura: Low lung volumes with crowding of the peribronchovascular markings. No confluent consolidation. No pleural effusion or pneumothorax. Cardiomediastinal silhouette: Normal cardiomediastinal silhouette. Bones and soft tissues: Endplate degenerative changes in the thoracic spine. DIVISION OF RADIOLOGY Provider, [facility] - 10/02/2022 * * *Final Report* * * DATE OF EXAM: Oct 02 2022 8:48AM WOX [id number] - XR CHEST 2V FRONTAL/LAT / PROCEDURE REASON: Acute cough * * * * Physician Interpretation * * * * EXAMINATION: CHEST RADIOGRAPH (2 VIEW FRONTAL & LATERAL) PATIENT/TECHNOLOGIST PROVIDED HISTORY: cough CLINICAL HISTORY: 42 years old Female with Acute cough MQ: XC2_6 EXAM DATE/TIME: 10/02/2022 8:48 AM COMPARISON: No relevant prior studies available. RESULT: Lines, tubes, and devices: None. Lungs and pleura: Low lung volumes with crowding of the peribronchovascular markings. No confluent consolidation. No pleural effusion or pneumothorax. Cardiomediastinal silhouette: Normal cardiomediastinal silhouette. Bones and soft tissues: Endplate degenerative changes in the thoracic spine. IMPRESSION IMPRESSION: Low lung volumes. No acute radiographic abnormality. Dray Truck Driver: PSCB Transcribe Date/Time: Oct 02 2022 9:01A Dictated by : KEVIN OSEI DO This examination was interpreted and the report reviewed and electronically signed by: KEVIN OSEI DO on Oct 02 2022 9:03AM EST [facility] Radiology Study observation (narrative) Shira Bernal XR Chest PA and LateralOrder ed By: Cc Provider on 10-02-2022 [facility] Absolute lymphocyte counton 05-11-2022 Lymphocytes Auto (Unsp spec) [#/Vol] 1.65 10*3/uL 0.83-4.51 [facility] Work Phone: Basophil percentageon 2021 Basophils/100 WBC (Bld) 1.1 % 0-1 [facility] Work Phone: Bilirubin [Mass/Vol] 0.30 mg/dL 0.20-1.00 [facility] Work Phone: Comment on above: For patients on eltr ombopag therapy, use of Dimension [place] TBIL is not recommended. Chloride [Moles/Vol] 106 mmol/L 98-107 [facility] Work Phone: Cholesterol [Mass/Vol] 170 mg/dL <200 [facility] Work Phone: Comment on above: <200 mg/dL Desirable 200-240 mg/dL Borderline >240 mg/dL High Risk Eosinophils/100 WBC (Bld) 4.9 % 0-5 [facility] Work Phone: Glucose [Mass/Vol] 93 mg/dL 74-106 [facility] Work Phone: Neutrophils (Bld) [#/Vol] 3.9 10*3/uL 2.0-7.7 [facility] Work Phone: Neutrophils/100 WBC (Bld) 61.3 % 47-70 [facility] Work Phone: Potassium [Moles/Vol] 3.9 mmol/L 3.5-5.1 [facility] Work Phone: Protein [Mass/Vol] 7.5 g/dL 6.4-8.2 [facility] Work Phone: Sodium [Moles/Vol] 137 mmol/L 136-145 [facility] Work Phone: Triglyceride [Mass/Vol] 66 mg/dL <199 [facility] Work Phone: Comment on above: The drugs N-Acetylcy steine and Metamizole may falsely depress this assay.Serum Triglycerides Reference Interval Normal <150 mg/dL Borderline high 150 - 199 mg/dL High 200 - 499 mg/dL Very High > or = 500 mg/dL WBC (Bld) [#/Vol] 6.3 10*3/uL 4.4-11.0 [facility] Work Phone: Blood erythrocytes count (nu mber/volume)on 05-11-2022 RBC (Bld) [#/Vol] 4.78 10*6/uL 4.2-5.4 [facility] Work Phone: Blood hemoglobin measurement (mass/volume)on 05-11-2022 Hemoglobin (Bld) [Mass/Vol] 11.9 g/dL 12.0-15.0 [facility] Work Phone: Blood lymphocytes/100 leukoc yteson 05-11-2022 Lymphocytes/100 WBC (Bld) 26.1 % 19-41 [facility] Work Phone: [phone] Blood monocytes/100 leukocyt eson 05-11-2022 Monocytes/100 WBC (Bld) 6.3 % 0-10 [facility] Work Phone: Blood platelet mean volumeon 05-11-2022 Platelet mean volume (Bld) [Entitic vol] 9.9 fL 6.2-12.0 [facility] Work Phone: Determination of erythrocyte mean corpuscular volume (MCV)on 05-11-2022 MCV (RBC) [Entitic vol] 79.5 fL 81-99 [facility] Work Phone: Hematocrit Auto (Bld) [Volum e fraction]on 05-11-2022 Hematocrit (Bld) [Volume fraction] 38.0 % 37-47 [facility] Work Phone: Laboratory - Chemistry and C hemistry - challengeon 05-11-2022 ALP [Catalytic activity/Vol] 73 U/L 45-117 [facility] Work Phone: ALT [Catalytic activity/Vol] 22 U/L 13-56 [facility] Work Phone: CO2 [Moles/Vol] 24.0 mmol/L 21.0-32.0 [facility] Work Phone: Globulin (S) [Mass/Vol] 4.2 g/dL 2.2-4.2 [facility] Work Phone: [phone] Urea nitrogen/Creatinine [Mass ratio] 14.3 mg/mg 10-20 [facility] Work Phone: [phone] Laboratory - Hematology and Cell countson 05-11-2022 Erythrocyte distribution width (RBC) [Entitic vol] 45.4 fL 35.1-43.9 [facility] Work Phone: [phone] Erythrocyte distribution width (RBC) [Ratio] 15.9 % 11.6-14.6 [facility] Work Phone: [phone] Immature granulocytes/100 WBC (Bld) 0.300 % 0.0-0.9 [facility] Work Phone: [phone] Comment on above: IG% - Immature Granu locytes (promyelocytes, myelocytes and metamyelocytes) > 1% indicates that a LEFT SHIFT is Present. MCH (RBC) [Entitic mass] 24.9 pg 27.0-32.0 [facility] Work Phone: [phone] [phone] RBC/100 WBC (Bld) [Ratio] 0 % 0-5 [facility] Work Phone: [phone] MCHC Auto (RBC) [Mass/Vol]on 05-11-2022 MCHC (RBC) [Mass/Vol] 31.3 g/dL 32-36 [facility] Work Phone: No Panel Informationon 05-11 Estimated GFR (MDRD) Amer 119 mL/min >60 [facility] Work Phone: [phone] Comment on above: GFR Calc Estimated GFR (MDRD) Non-Af Amer 98 mL/min >60 [facility] Work Phone: [phone] Comment on above: Non- GFR Calc Insulin Level 13.4 mU/L 2.6-37.6 [facility] Work Phone: [phone] Thyroid Stimulating Hormone (TSH) 1.27 uIU/mL 0.358-3.74 [facility] Work Phone: [phone] Platelets bldon 05-11-2022 Platelets (Bld) [#/Vol] 312 10*3/uL 150-450 [facility] Work Phone: Serum or plasma albumin jerald urement (mass/volume)on 05-11-2022 Albumin [Mass/Vol] 3.3 g/dL 3.2-5.0 [facility] Work Phone: Serum or plasma albumin/glob ulin mass ratioon 05-11-2022 Albumin/Globulin [Mass ratio] 0.8 {ratio} 0.9-2.4 [facility] Work Phone: Serum or plasma calcium jerald urement (mass/volume)on 05-11-2022 Calcium [Mass/Vol] 8.5 mg/dL 8.5-10.1 [facility] Work Phone: Serum or plasma cholesterol in HDL measurement (mass/volume)on 05-11-2022 Cholesterol in HDL [Mass/Vol] 61 mg/dL >40 [facility] Work Phone: Comment on above: The drugs N-Acetylcy steine and Metamizole may falsely depress this assay. Reference Range HDL <40 mg/dL Low HDL Cholesterol HDL >or= 60 mg/dL High HDL Cholesterol Serum or plasma cholesterol in VLDL measurement (mass/volume)on 05-11-2022 Cholesterol in VLDL [Mass/Vol] 13 mg/dL 5-40 [facility] Work Phone: Serum or plasma creatinine m easurement (mass/volume)on 05-11-2022 Creatinine [Mass/Vol] 0.70 mg/dL 0.55-1.02 [facility] Work Phone: Comment on above: The validity of the calculated GFR & GFRAA in patients over 70 years has not been determined. Clinical correlation is essential. Serum or plasma low density lipoprotein (LDL) cholesterol measurement (mass/volume)on 05-11-2022 Cholesterol in LDL [Mass/Vol] 96 mg/dL 0-130 [facility] Work Phone: Serum or plasma urea nitroge n measurement (mass/volume)on 05-11-2022 Urea nitrogen [Mass/Vol] 10 mg/dL 7-18 [facility] Work Phone: Thin prep Papanicolaou smear with manual screeningon 05-11-2022 Thin prep Papanicolaou smear with manual screening 10 U/L 15-37 [facility] Work Phone: Thin prep Papanicolaou smear with manual screening 7 5-15 [facility] Work Phone: Whole blood hemoglobin A1c/t otal hemoglobin ratio (mass fraction)on 05-11-2022 HbA1c (Bld) [Mass fraction] 5.5 % 3.8-5.6 [facility] Work Phone: Comment on above: Normal < 5.7 % Predi abetic 5.7 - 6.4 % Diabetic >or= 6.5 % Please note range changes. Vital Signs Date Time Vital Sign Value Performing Clinician Facility 05-14-2025 11:27-0400 Body height 175.[address] Napoleon Chambers DO Work Phone: [facility] 05-14-2025 11:19-0400 Body mass index (BMI) [Ratio] 45.8 kg/m2 Dr. Napoleon Chambers DO Work Phone: [facility] 05-14-2025 11:19-0400 Body weight 140.[address] Napoleon Chambers DO Work Phone: [facility] 05-14-2025 11:19-0400 Diastolic blood pressure 82 mm[Hg] Dr. Napoleon Chambers DO Work Phone: [facility] 05-14-2025 11:19-0400 Systolic blood pressure 140 mm[Hg] Dr. Napoleon Chambers DO Work Phone: [facility] 12-15-2024 08:12-0500 Body mass index (BMI) [Ratio] 45.25 kg/m2 Zuleyma Pratt APRN.PA[employer]ROLL TAX ANALYST Work Phone: [facility] 12-15-2024 08:12-0500 Body temperature 97.9 [degF] Zuleyma Pratt APRN.PAYROLL TAX ANALYST Work Phone: [facility] 12-15-2024 08:12-0500 Body weight 139 kg Zuleyma Pendlebury SPOOL CLEANER HAND.[employer] TAX ANALYST Work Phone: [facility] 12-15-2024 08:12-0500 Diastolic blood pressure 72 mm[Hg] Zuleyma Pendlebury SPOOL CLEANER HAND.PA[employer]ROLL TAX ANALYST Work Phone: [facility] 12-15-2024 08:12-0500 Heart rate 84 /min Zuleyma Pendlebury SPOOL CLEANER HAND.PA[employer]LL TAX ANALYST Work Phone: [facility] 12-15-2024 08:12-0500 Respiratory rate 16 /min Zuleyma Pendlebury SPOOL CLEANER HAND.PA[employer]ROLL TAX ANALYST Work Phone: [facility] 12-15-2024 08:12-0500 SaO2% (BldA) [Mass fraction] 98 % Zuleyma Pendlebury SPOOL CLEANER HAND.PA[employer]ROLL TAX ANALYST Work Phone: [facility] 12-15-2024 08:12-0500 Systolic blood pressure 126 mm[Hg] Zuleyma Pendlebury SPOOL CLEANER HAND.PA[employer]ROLL TAX ANALYST Work Phone: [facility] 09-20-2023 08:33-0500 Body temperature 97.5 [degF] Cielo Koo SPOOL CLEANER HAND.PA[employer]LL TAX ANALYST Work Phone: [facility] 09-20-2023 08:33-0500 Body weight 138.8 kg Cielo Koo SPOOL CLEANER HAND.[employer] TAX ANALYST Work Phone: [facility] 09-20-2023 08:33-0500 Diastolic blood pressure 71 mm[Hg] Cielo Koo SPOOL CLEANER HAND.PA[employer]ROLL TAX ANALYST Work Phone: [facility] 09-20-2023 08:33-0500 Heart rate 73 /min Cielo Koo SPOOL CLEANER HAND.PA[employer]LL TAX ANALYST Work Phone: [facility] 09-20-2023 08:33-0500 Respiratory rate 18 /min Cielo Koo SPOOL CLEANER HAND.PA[employer]ROLL TAX ANALYST Work Phone: [facility] 09-20-2023 08:33-0500 SaO2% (BldA) [Mass fraction] 98 % Cielo Koo SPOOL CLEANER HAND.PA[employer]LL TAX ANALYST Work Phone: [facility] 09-20-2023 08:33-0500 Systolic blood pressure 130 mm[Hg] Cielo Koo [employer]RO[employer] TAX ANALYST Work Phone: [facility] 05-16-2023 07:28-0400 Body height 175.[address] Napoleon Chambers Work Phone: [facility] 05-16-2023 07:28-0400 Body mass index (BMI) [Ratio] 45 kg/m2 Dr. Napoleon Chambers Work Phone: [facility] 05-16-2023 07:28-0400 Body temperature 97.3 [degF] Dr. Napoleon Chambers Work Phone: [facility] 05-16-2023 07:28-0400 Body weight 138.[address] Napoleon Chambers Work Phone: [facility] 05-16-2023 07:28-0400 Diastolic blood pressure 75 mm[Hg] Dr. Napoleon Chambers Work Phone: [facility] 05-16-2023 07:28-0400 Heart rate 85 /min Dr. Napoleon Chambers Work Phone: [facility] 05-16-2023 07:28-0400 Respiratory rate 18 /min Dr. Napoleon Chambers Work Phone: [facility] 05-16-2023 07:28-0400 SaO2% (BldA) [Mass fraction] 98 % Dr. Napoleon Chambers Work Phone: [facility] 05-16-2023 07:28-0400 Systolic blood pressure 129 mm[Hg] Dr. Napoleon Chambers Work Phone: [facility] 04-26-2023 09:16-0400 Body mass index (BMI) [Ratio] 44.4 kg/m2 Dr. Napoleon Chambers Work Phone: [facility] 04-26-2023 09:16-0400 Body weight 136.[address] Napoleon Chambers Work Phone: [facility] 04-26-2023 09:16-0400 Diastolic blood pressure 80 mm[Hg] Dr. Napoleon Chambers Work Phone: [facility] 04-26-2023 09:16-0400 Heart rate 85 /min Dr. Napoleon Chambers Work Phone: [facility] 04-26-2023 09:16-0400 Respiratory rate 18 /min Dr. Napoleon Chambers Work Phone: [facility] 04-26-2023 09:16-0400 Systolic blood pressure 142 mm[Hg] Dr. Napoleon Chambers Work Phone: [facility] 04-04-2023 07:48-0400 Body height 175.[address] Napoleon Chambers Work Phone: [facility] 04-04-2023 07:48-0400 Body mass index (BMI) [Ratio] 45.4 kg/m2 Dr. Napoleon Chambers Work Phone: [facility] 04-04-2023 07:48-0400 Body temperature 97.5 [degF] Dr. Napoleon Chambers Work Phone: [facility] 04-04-2023 07:48-0400 Body weight 139.[address] Napoleon Chambers Work Phone: [facility] 04-04-2023 07:48-0400 Diastolic blood pressure 84 mm[Hg] Dr. Napoleon Chambers Work Phone: [facility] 04-04-2023 07:48-0400 Heart rate 76 /min Dr. Napoleon Chambers Work Phone: [facility] 04-04-2023 07:48-0400 Respiratory rate 18 /min Dr. Napoleon Chambers Work Phone: [facility] 04-04-2023 07:48-0400 SaO2% (BldA) [Mass fraction] 98 % Dr. Napoleon Chambers Work Phone: [facility] 04-04-2023 07:48-0400 Systolic blood pressure 154 mm[Hg] Dr. Napoleon Chambers Work Phone: [facility] 03-25-2023 13:59-0400 Body height 175.[address] Napoleon Chambers Work Phone: [facility] 03-25-2023 13:59-0400 Body mass index (BMI) [Ratio] 46 kg/m2 Dr. Napoleon Chambers Work Phone: [facility] 03-25-2023 13:59-0400 Body weight 141.[address] Napoleon Chambers Work Phone: [facility] 03-25-2023 13:59-0400 Diastolic blood pressure 69 mm[Hg] Dr. Napoleon Chambers Work Phone: [facility] 03-25-2023 13:59-0400 Systolic blood pressure 128 mm[Hg] Dr. Napoleon Chambers Work Phone: [facility] 03-04-2023 12:58-0400 Body mass index (BMI) [Ratio] 45.6 kg/m2 Dr. Napoleon Chambers Work Phone: [facility] 03-04-2023 12:58-0400 Body weight 140.[address] Napoleon Chambers Work Phone: [facility] 03-04-2023 12:58-0400 Diastolic blood pressure 78 mm[Hg] Dr. Napoleon Chambers Work Phone: [facility] 03-04-2023 12:58-0400 Heart rate 71 /min Dr. Napoleon Chambers Work Phone: [facility] 03-04-2023 12:58-0400 Systolic blood pressure 134 mm[Hg] Dr. Napoleon Chambers Work Phone: [facility] 02-17-2023 13:45-0400 Body temperature 98.2 [degF] Chip Osman SPOOL CLEANER HAND.[employer] T[employer] ANALYST Work Phone: [facility] 02-17-2023 13:45-0400 Body weight 141.43 kg Chip Brewer SPOOL CLEANER HAND.[employer] TAX ANALYST Work Phone: [facility] 02-17-2023 13:45-0400 Diastolic blood pressure 76 mm[Hg] Chip Osman SPOOL CLEANER HAND.[employer] TAX ANALYST Work Phone: [facility] 02-17-2023 13:45-0400 Heart rate 88 /min Chip Osman SPOOL CLEANER HAND.[employer] TAX ANALYST Work Phone: [facility] 02-17-2023 13:45-0400 Respiratory rate 18 /min Chip Osman SPOOL CLEANER HAND.PA[employer]LL TAX ANALYST Work Phone: [facility] 02-17-2023 13:45-0400 SaO2% (BldA) [Mass fraction] 99 % Chip Brewer SPOOL CLEANER HAND.PA[employer]LL TAX ANALYST Work Phone: [facility] 02-17-2023 13:45-0400 Systolic blood pressure 140 mm[Hg] Chip Osman SPOOL CLEANER HAND.[employer] TAX ANALYST Work Phone: [facility] 01-13-2023 12:20-0400 Body temperature 98.91 [degF] Cynthia Athy PA-C Work Phone: [facility] 01-13-2023 12:20-0400 Body weight 140.52 kg Cynthia Athy PA-C Work Phone: [facility] 01-13-2023 12:20-0400 Diastolic blood pressure 80 mm[Hg] Cynthia Athy PA-C Work Phone: [facility] 01-13-2023 12:20-0400 Heart rate 100 /min Cynthia Athy PA-C Work Phone: [facility] 01-13-2023 12:20-0400 Respiratory rate 21 /min Cynthia Athy PA-C Work Phone: [facility] 01-13-2023 12:20-0400 SaO2% (BldA) [Mass fraction] 99 % Cynthia Athy PA-Amanda Work Phone: [facility] 01-13-2023 12:20-0400 Systolic blood pressure 146 mm[Hg] Cynthia NÚÑEZ-Amanda Work Phone: [facility] 12-13-2022 15:57-0500 Body height 175.[address] Napoleon Chambers Work Phone: [facility] 12-13-2022 15:52-0500 Body mass index (BMI) [Ratio] 46.2 kg/m2 Dr. Napoleon Chambers Work Phone: [facility] 12-13-2022 15:52-0500 Body weight 142.[address] Napoleon Chambers Work Phone: [facility] 12-13-2022 15:52-0500 Diastolic blood pressure 74 mm[Hg] Dr. Napoleon Chambers Work Phone: [facility] 12-13-2022 15:52-0500 Systolic blood pressure 130 mm[Hg] Dr. Napoleon Chambers Work Phone: [facility] 12-03-2022 07:12-0500 Body temperature 99.1 [degF] Deidra Praisler-Wood SPOOL CLEANER HAND.[employer] T[employer] ANALYST Work Phone: [facility] 12-03-2022 07:12-0500 Body weight 138.17 kg Deidra Praisler-Wood SPOOL CLEANER HAND.[employer]LL TAX ANALYST Work Phone: [facility] 12-03-2022 07:12-0500 Diastolic blood pressure 84 mm[Hg] Deidra Praisler-Wood SPOOL CLEANER HAND.[employer]LL TAX ANALYST Work Phone: [facility] 12-03-2022 07:12-0500 Heart rate 127 /min Deidra Praisler-Wood SPOOL CLEANER HAND.[employer] T[employer] ANALYST Work Phone: [facility] 12-03-2022 07:12-0500 Respiratory rate 18 /min Deidra Praisler-Wood SPOOL CLEANER HAND.PAYROLL TAX ANALYST Work Phone: [facility] 12-03-2022 07:12-0500 SaO2% (BldA) [Mass fraction] 98 % Deidra Peterson-Wood SPOOL CLEANER HAND.PAYROLL TAX ANALYST Work Phone: [facility] 12-03-2022 07:12-0500 Systolic blood pressure 130 mm[Hg] Deidra Praisler-Wood SPOOL CLEANER HAND.PAYROLL TAX ANALYST Work Phone: [facility] 10-02-2022 08:16-0500 Body temperature 99.39 [degF] Cielo Koo SPOOL CLEANER HAND.PAYROLL TAX ANALYST Work Phone: [facility] 10-02-2022 08:16-0500 Body weight 137.71 kg Cielo Koo SPOOL CLEANER HAND.PAYROLL TAX ANALYST Work Phone: [facility] 10-02-2022 08:16-0500 Diastolic blood pressure 68 mm[Hg] Cielo Koo SPOOL CLEANER HAND.PAYROLL TAX ANALYST Work Phone: [facility] 10-02-2022 08:16-0500 Heart rate 110 /min Cielo Koo SPOOL CLEANER HAND.PAYROLL TAX ANALYST Work Phone: [facility] 10-02-2022 08:16-0500 Respiratory rate 21 /min Cielo Koo SPOOL CLEANER HAND.PAYROLL TAX ANALYST Work Phone: [facility] 10-02-2022 08:16-0500 SaO2% (BldA) [Mass fraction] 98 % Cielo Koo SPOOL CLEANER HAND.PAYROLL TAX ANALYST Work Phone: [facility] 10-02-2022 08:16-0500 Systolic blood pressure 148 mm[Hg] Cielo Koo SPOOL CLEANER HAND.PAYROLL TAX ANALYST Work Phone: [facility] Encounters Encounter Date Encounter Type Care Provider Facility Start: 08-15-2025 ambulatory Napoleon Chambers Facility: [facility] Start: 07-10-2025 ambulatory Dia García NP Facil ity:[facility] Start: 05-30-2025 End: 05-30-[address] Napoleon Chambers DO Work Phone: -[facility] Start: 05-30-2025 End: 05-30-[address] Napoleon Chambers DO -Ultrasound [facility] Work Phone: Start: 05-30-2025 End: 05-30-2025 ambulatory Napoleon Chambers Facility:[facility] Start: 05-27-2025 Encounter for genera l adult medical examination without abnormal findings Napoleon [facility] Start: 05-22-2025 End: 05-22-[address] Napoleon Chambers DO Work Phone: -Laboratory Ogdencj Brooks [facility] Start: 05-22-2025 End: 05-22-[address] Napoleon Chambers DO -Laboratory Oma Brooks [facility] Start: 05-22-2025 End: 05-22-2025 ambulatory Napoleon Chambers Facility:[facility] Start: 05-14-2025 End: 05-14-2025 Patient encounter procedure Dia BACA -[facility] Work Phone: Start: 05-14-2025 End: 05-14-2025 Patient encounter status Dia FITZPATRICKC [facility] Start: 05-14-2025 End: 05-14-[address] Napoleon Chambers DO Work Phone: -[facility] Start: 12-17-2024 End: 12-17-[address] Napoleon Chambers DO Work Phone: [facility] Work Phone: Start: 12-17-2024 End: 12-17-[address] Kamla Keita MD [facility] Work Phone: Start: 12-17-2024 End: 12-17-2024 ambulatory Kamla Keita Facility:[facility] Start: 12-15-2024 End: 12-15-2024 ambulatory NAPOLEON CHAMBERS Facility:[facility] Start: 12-15-2024 End: 12-15-2024 Office outpatient visit 25 minutes Zuleyma Pratt APRN.CNP Work Phone: [facility] Comment on above: Bacterial sinusitis (Primary Dx) Start: 09-20-2023 End: 09-20-2023 Patient encounter procedure Cielo Koo PAYROLL TAX ANALYST Work Phone: [facility] Comment on above: Upper respiratory tr act infection, unspecified type (Primary Dx) Start: 05-23-2023 End: 05-23-[address] Napoleon Chambers Work Phone: [facility] Work Phone: Start: 05-23-2023 End: 05-23-[address] Napoleon Chambers Work Phone: [facility]Cardiovascula r Services Work Phone: Start: 05-20-2023 End: 05-20-[address] Napoleon Chambers Work Phone: [facility] Work Phone: Start: 05-20-2023 End: 05-20-[address] Napoleon Chambers Work Phone: [facility]-Laboratory Work Phone: Start: 05-16-2023 End: 05-16-[address] Napoleon Chambers Work Phone: [facility] Work Phone: Start: 04-26-2023 End: 04-26-[address] Napoleon Chambers Work Phone: [facility] Work Phone: Start: 04-25-2023 End: 04-25-[address] Napoleon Chambers Work Phone: [facility]-Outpatient Breast Imaging Work Phone: Start: 04-15-2023 End: 04-15-[address] Napoleon Chambers Work Phone: [facility] Work Phone: Start: 04-15-2023 End: 04-15-[address] Napoleon Chambers Work Phone: [facility]-Sleep Lab Work Phone: Start: 04-04-2023 End: 04-04-[address] Napoleon Chambers Work Phone: [facility] Work Phone: Start: 03-28-2023 End: 03-28-2023 Non-patient / Non-visit Dr. Napoleon Chambers Work Phone: [facility] Work Phone: Start: 03-28-2023 End: 03-28-[address] Napoleon Chambers Work Phone: [facility] Work Phone: Start: 03-28-2023 End: 03-28-[address] Napoleon Chambers Work Phone: [facility]-Pulmonary Services/Neurology Start: 03-25-2023 End: 03-25-[address] Napoleon Chambers Work Phone: [facility] Start: 03-23-2023 End: 03-23-[address] Napoleon Chambers Work Phone: [facility]-Laboratory Start: 03-04-2023 End: 03-04-[address] Napoleon Chambers Work Phone: [facility] Start: 02-17-2023 End: 02-17-2023 Patient encounter procedure Chip Brewer APRN.CNP Work Phone: [facility] Comment on above: Dizziness (Primary D x) Start: 01-13-2023 End: 01-13-2023 Patient encounter procedure Cynthia Dunham PA-C Work Phone: [facility] Comment on above: Strep pharyngitis (P rimary Dx) Start: 12-13-2022 End: 12-13-[address] Napoleon Chambers Work Phone: [facility] Work Phone: Start: 12-13-2022 End: 12-13-[address] Napoleon Chambers Work Phone: [facility]-Laboratory, Specimen Start: 12-13-2022 End: 12-13-[address] Napoleon Chambers Work Phone: [facility] Start: 12-03-2022 End: 12-03-2022 Patient encounter procedure Deidra Armenta APRN.PAYROLL TAX ANALYST Work Phone: [facility] Comment on above: Sore throat (Primary Dx); Strep throat Start: 10-02-2022 End: 10-02-2022 Subsequent hospital visit by physician Xr [facility] Work Phone: Radiology Comment on above: Acute cough [R05.1] Start: 10-02-2022 End: 10-02-2022 Patient encounter procedure Cielo Koo APRN.PAYROLL TAX ANALYST Work Phone: [facility] Comment on above: Acute cough (Primary Dx); Viral illness; URI, acute Start: 05-11-2022 End: 05-11-2022 Patient encounter procedure [facility]-Laboratory, [place] Start: 04-20-2022 End: 04-20-2022 Patient encounter procedure [facility]-Outpatient Breast Imaging Start: 06-17-2011 End: 01-27-2012 Patient encounter status [facility]r [facility] Work Phone: [facility] Work Phone: Procedures Date Procedure Procedure Detail Performing Clinician Start: 05-30-[address] Napoleon Chambers DO Work Phone: Start: 12-17-[address] Napoleon Chambers DO Work Phone: Start: 09-20-2023 STREP A MOLECULAR (POC) Deidra Armenta SPOOL CLEANER HAND.PAYROLL TAX ANALYST Work Phone: Start: 04-25-2023 Screening mammography Erica deana Chambers Work Phone: Start: 01-13-2023 STREP A MOLECULAR (POC) Deidra Armenta SPOOL CLEANER HAND.PAYROLL TAX ANALYST Work Phone: Start: 12-03-2022 STREP A MOLECULAR (POC) Deidra Armenta SPOOL CLEANER HAND.PAYROLL TAX ANALYST Work Phone: Start: 10-02-2022 Radiologic exam ches t 2 views Cielo Koo SPOOL CLEANER HAND.PAYROLL TAX ANALYST Work Phone: Start: 10-02-2022 STREP A MOLECULAR (POC) [facility] Provider Start: 04-20-2022 Screening mammography Plan of Treatment Date Care Activity Detail Author Start: 06-17-2024 Covid-19 Vaccine ( season) Covid-19 Vaccine ( season) [facility] Start: 06-17-2024 Influenza vaccination Influenza Vacc ine (#1) [facility] Start: 09-20-2023 End: 10-04-2023 COVID & INFLUENZA A/B & RSV NAAT, ROUTINE [facility] Work Phone: Comment on above: Expected: 09/20/2023 , Expires: 10/04/2023 Start: 06-17-2023 Influenza vaccination [facility] Start: 03-04-2023 Patient referral [facility] Work Phone: Start: 12-13-2022 Liquid based cervica l cytology screening [facility] Start: 10-17-2022 DEPRESSION ASSESSMENT DEPRESSION ASS ESSMENT [facility] Start: 10-02-2022 End: 10-16-2022 Influenza virus A and B RNA and SARS-CoV-2 (COVID-19) N gene panel - Respiratory specimen by LEONARD with probe detection COVID WITH FLUA+B, ROUTINE Microbiology Routine Acute cough Viral illness URI, acute Expected: 10/02/2022, Expires: 10/16/2022 [facility] Work Phone: Comment on above: Expected: 10/02/2022 , Expires: 10/16/2022 Start: 06-17-2022 Influenza vaccination INFLUENZA (#1) [facility] Start: 10-17-2021 DEPRESSION ASSESSMENT DEPRESSION ASS ESSMENT [facility] Start: 2021 Mammography [facility] Start: 2021 Screening for malign ant neoplasm of breast Mammogram Screening [facility] Start: 03-18-2019 HPV TESTING HPV TESTING [facility] Start: 03-18-2019 PAP TESTING PAP TESTING [facility] Start: 03-18-2019 Screening for malign ant neoplasm of cervix Cervical Cancer Screening [facility] Start: 2000 Hepatitis B Vaccine (1 of 3 - 19+ 3-dose series) Hepatitis B Vaccine (1 of 3 - 19+ 3-dose series) [facility] Start: 2000 Urine microalbumin profile [facility] Start: 1999 Anxiety Screening Anxiety Screening [facility] Start: 1999 Depression Screening Depression Scre ening [facility] Start: 1999 HEPATITIS C SCREENING HEPATITIS C [facility] Start: 1999 Hepatitis C screening Hepatitis C [facility] Start: 1981 COVID-19 VACCINE (#1) COVID-19 VACCI NE (#1) [facility] Start: 1981 HEPATITIS B (1 of 3 - 3-dose series) HEPATITIS B (1 of 3 - 3-dose series) [facility] Start: 1981 Hepatitis B Vaccine (1 of 3 - 3-dose series) Hepatitis B Vaccine (1 of 3 - 3-dose series) [facility] MG Breast - bilatera l Screening [facility] Path report.final Dx Spec [facility] Patient referral [facility] Work Phone: [facility] Immunizations Immunization Date Immunization Notes Care Provider Yoan de la garza 07-14-2013 influenza virus vacc ine, unspecified formulation Cielo Koo SPOOL CLEANER HAND.PAYROLL TAX ANALYST Work Phone: [facility] 10-06-2012 influenza virus vacc ine, unspecified formulation Cielo Koo SPOOL CLEANER HAND.PAYROLL TAX ANALYST Work Phone: [facility] Payers Date Payer Category Payer Self-pay [id number] 2021 [employer] BLUE ACCE SS PPO [id number] 2020 Unknown [id number] 2019 Unknown [id number] Unknown [facility] [id number] Unknown [facility] PACKAGE PLAN [id number] Unknown [id number] Unknown [id number] Unknown [id number] Unknown [id number] Unknown [id number] Unknown [id number] Social History Date Type Detail Facility Start: 10-06-2021 End: 05-16-2023 Tobacco smoking status VAIS Unknown if ever smoked [facility] Start: 02-10-2020 None [facility] Start: 02-10-2020 With Family [facility] Start: 1980 Sex Assigned At Female C [facility] Work Phone: Start: 10-02-2022 End: 05-14-2025 Tobacco smoking status VAIS Ex-smoker [facility] Start: 10-17-1995 End: 10-17-2005 History of tobacco use Current smoker [facility] Start: 10-17-1995 End: 10-17-2005 History of tobacco use Cigarette Smoker [facility] Start: 10-02-2022 End: 12-15-2024 Tobacco use and exposure Smokeless tobacco non-user [facility] Start: 10-02-2022 End: 12-15-2024 Alcohol intake Current drinker of alcohol (finding) [facility] Start: 02-15-2012 Alcohol Comment social, couple times per month,NOT WHILE [facility] Start: 09-24-2020 End: 09-20-2023 History of Social function [facility] Start: 09-24-2020 End: 09-20-2023 Tobacco use panel [facility] National Score (1-10 0), lower number is lower risk Not on file [facility] Start: 04-13-2017 Gender identity Identifies as female gender (finding) [facility] Work Phone: Start: 04-13-2017 Sexual orientation Heterosexual (fin ding) [facility] Work Phone: Start: 12-26-2024 Sex Female (finding) [facility] Medical Equipment Procedure Code Equipment Code Equipment Origin al Text Equipment Identifier Dates JASEN SOARES FDA Start: 03-15-2018 JASEN SOARES FDA Start: 03-15-2018 JASEN SOARES FDA Start: 03-15-2018 JASEN SOARES FDA Start: 03-15-2018 DRESSING,FIBRILL AR 1X2 1 FDA Start: 03-15-2018 MANOJ SOARESVANESSACK D WECK FDA Start: 03-15-2018 CLIP,HEMVANESSACK D WECK FDA Start: 03-15-2018 CLIP,HEMOLOCK D WECK FDA Start: 03-15-2018 CLIP,HEMOLOCK D WECK FDA Start: 03-15-2018 DRESSING,FIBRILL AR 1960 FDA Start: 03-15-2018 CLIP,HEMOLOCK D WECK FDA Start: 03-15-2018 CLIP,HEMOLOCK D WECK FDA Start: 03-15-2018 CLIP,HEMOLOCK D WECK FDA Start: 03-15-2018 CLIP,HEMOLOCK D WECK FDA Start: 03-15-2018 DRESSING,FIBRILL AR 1960 FDA Start: 03-15-2018 CLIP,HEMOLOCK D WECK FDA Start: 03-15-2018 CLIP,HEMOLOCK D WECK FDA Start: 03-15-2018 CLIP,HEMOLOCK D WECK FDA Start: 03-15-2018 CLIP,HEMOLOCK D WECK FDA Start: 03-15-2018 DRESSING,FIBRILL AR 1960 FDA Start: 03-15-2018 CLIP,HEMVANESSACK D WERAMAKRISHNA FDA Start: 03-15-2018 CLIP,HEMVANESSACK D WECK FDA Start: 03-15-2018 CLIP,HEMVANESSACK D WECK FDA Start: 03-15-2018 CLIP,HEMOLOCK D WECK FDA Start: 03-15-2018 DRESSING,FIBRILL AR 1960 FDA Start: 03-15-2018 CLIP,HEMOLOCK D WECK FDA Start: 03-15-2018 CLIP,HEMOLOCK D WECK FDA Start: 03-15-2018 CLIP,HEMOLOCK D WECK FDA Start: 03-15-2018 CLIP,HEMOLOCK D WECK FDA Start: 03-15-2018 DRESSING,FIBRILL AR 1960 FDA Start: 03-15-2018 CLIP,HEMOLOCK D WECK FDA Start: 03-15-2018 CLIP,HEMOLOCK D WECK FDA Start: 03-15-2018 CLIP,HEMOLOCK D WECK FDA Start: 03-15-2018 CLIP,HEMOLOCK D WECK FDA Start: 03-15-2018 DRESSING,FIBRILL AR 1960 FDA Start: 03-15-2018 CLIP,HEMOLOCK D WECK FDA Start: 03-15-2018 CLIP,HEMOLOCK D WECK FDA Start: 03-15-2018 CLIP,HEMOLOCK D WECK FDA Start: 03-15-2018 CLIP,HEMOLOCK D WECK FDA Start: 03-15-2018 DRESSING,FIBRILL AR 1X2 1960 FDA Start: 03-15-2018 CLIP,HEMOLOCK D WECK FDA Start: 03-15-2018 CLIP,HEMOLOCK ME D WECK FDA Start: 03-15-2018 CLIP,HEMOLOCK ME D WECK FDA Start: 03-15-2018 CLIP,HEMOLOCK ME D WECK FDA Start: 03-15-2018 DRESSING,FIBRILL AR 1X2 1960 FDA Start: 03-15-2018 CLIP,HEMOLOCK D WECK FDA Start: 03-15-2018 CLIP,HEMOLOCK D WECK FDA Start: 03-15-2018 CLIP,HEMOLOCK D WECK FDA Start: 03-15-2018 CLIP,HEMOLOCK D WECK FDA Start: 03-15-2018 DRESSING,FIBRILL AR 1X2 1960 FDA Start: 03-15-2018 CLIP,HEMOLOCK D WECK FDA Start: 03-15-2018 CLIP,HEMOLOCK D WECK FDA Start: 03-15-2018 CLIP,HEMOLOCK D WECK FDA Start: 03-15-2018 CLIP,HEMOLOCK D WECK FDA Start: 03-15-2018 DRESSING,FIBRILL AR 1X2 1960 FDA Start: 03-15-2018 Functional Status Date Assessment Result Facility 03-18-2014 Are you deaf, or do you have serious difficulty hearing No 03/18/2014 9:56 AM Tessa Nye Ma [facility] 03-18-2014 Are you blind, or do you have serious difficulty seeing, even when wearing glasses No 03/18/2014 9:56 AM Tessa Nye Ma [facility] 03-18-2014 Do you have serious difficulty walking or climbing stairs No 03/18/2014 9:56 AM Tessa Nye Ma [facility] 03-18-2014 Do you have difficul ty dressing or bathing No 03/18/2014 9:56 AM Tessa Nye Ma [facility] 03-18-2014 Because of a physica l, mental, or emotional condition, do you have difficulty doing errands alone such as visiting a physician's office or shopping No 03/18/2014 9:56 AM EDT Tessa Jimenez Ma [facility] Mental Status Date Assessment Result Facility 03-18-2014 Because of a physica l, mental, or emotional condition, do you have serious difficulty concentrating, remembering, or making decisions No 03/18/2014 9:56 AM EDT Tony Garcia Tessa Avila [facility] Clinical Notes 07-27-2013 to 05-31-2025 Note Date & Type Note Facility 05-31-2025 Radiology Diagnostic study note [facility] Imaging Services [address] [place] [address] [id number] Abdomen Limited MR#: [id number] Acct: [id number] Name: MANUEL HARRIS Rep #: [id number] : 1980 F 44 From: Floyd Dupree MD PCP: Dr. Napoleon Chambers DO Status: REG CLI Study:Abdomen Limited Date of Exam: 05/17 02/08 Exam# [id number] Ordering Dr: Napoleon Chambers DO PROCEDURE: ABDOMEN LIMITED 05/30/2025 REASON FOR EXAM: PERALTA/ASSESS DEGREE OF STEATOSIS COMPARISON: Prior study dated January 13, 2019. FINDINGS: Liver: Diffusely echogenic suggesting fatty infiltration. Hepatomegaly. The liver measures 19.6 cm. Gallbladder: Surgically absent. Common bile duct: Dilated measuring up to 7.3 mm. This may be normal for the post cholecystectomy state. . Pancreas: Normal Other: Visualized portions of the right kidney are unremarkable. No right upperquadrant ascites. US/Abdomen Limited IMPRESSION: Fatty infiltration of the liver. Hepatomegaly. [facility] CC: Dr. Napoleon Chambers DO ~ Dray Truck Driver: Signed [facility] 05-14-2025 Evaluation note Diagnosis Onset Date Resolution Obesity chronic May 14 11:17am Encounter for routine gynecological examination noneactive May 14, 2025 11:17am [facility] Work Phone: [phone]) 735-621607-29-2025 [facility] [address], [address] [place] [address] OFFICE VISIT Date of Service: 05/14/25 MR#: [id number] Acct: [id number] Name: MANUEL HARRIS Rep #: [id number] : 1980 Provider: PHUONG García Age/Sex: 44/F Location: [facility] Status: Signed Intake Vital Signs 05/23/24 08:05 05/14/25 11:19 05/14/25 11:27 Height 5 ft 9 in 5 ft 9 in 5 ft 9 in Weight: 299 lb 310 lb 6 oz BMI 44.1 45.8 BP 129/82 H 140/82 H Blood Pressure Location Rt brachial Position Sitting Respiration 17 Pulse 78 Pulse Source Monitor Temp 97 F L Pulse Oximetry (%) 98 Oxygen Delivery Method room air 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) Chief Complaint: Annual [employer] Terrazzo Worker Required: No Is patient in pain?: No Allergies sulfamethoxazole (From ) Allergy (Verified 05/14/25 11:30) Rash trimethoprim (From ) Allergy (Verified 05/14/25 11:30) Rash Medications ?Medication ?Instructions ?Recorded ?Confirmed ?Type multivitamin-ferrous 1 tab PO DAILY 04/20/2304/17 History fumarate-folic acid 18 mg-400 mcg tablet (Centrum Women) cetirizine 10 mg tablet (Zyrtec) 10 mg PO DAILY 05/14/25 History citalopram 20 mg tablet (Celexa) 20 mg PO DAILY 05/14/25 History hydrochlorothiazide 12.5 mg tablet 12.5 mg PO DAILY #9 0 TABLETS 05/30/24 05/14/25 Rx Is last menstrual period known: Yes Last Menstrual Period: 05/02/25 Post menopausal: No Patient : No [facility] Abnormal EKG Palpitations Essential hypertension BPPV (benign paroxysmal positional vertigo) Daytime hypersomnia Vitamin D deficiency Binge eating disorder Insulin resistance Fatty liver disease, nonalcoholic Osteoarthritis BMI greater than 40 Obesity Anxiety Gastritis Surgical History History of ankle surgery History of cholecystectomy S/P hammer toe correction S/P medial meniscal repair S/P tonsillectomy S/P section Family History Mother Diabetes Thyroid disorder Lupus Arthritis Sleep apnea Anxiety Sister CVA (cerebral vascular accident), Onset Age: 30 Anxiety PFO (patent foramen ovale) Celiac disease Father Hypertension Daughter Anxiety Other Bleeding disorder Social History (Updated 05/14/25 @ 11:36 by Dia García HAND DRAWER IN HELPER, HAND DRAWER IN HELPER-C) household members: spouse and children number of children: 1 current occupational status: employed current occupation: [employer] Smoking Status: Former smoker alcohol intake: current alcohol intake frequency: holidays/special occasions only substance use type: does not use seatbelt use: always do you feel safe at home: Yes additional social history: Gopi Harris at [employer] History 1 Elective abortions Hx Para 1 Spontaneous abortions Hx # Term Pregnancies 1 Ectopic pregnancies Hx # Pregnancies Multiple births # of living children 1 Past Pregnancies Del. Date Name GA/Weeks Outcome Route Bth Weight Infant Gen Labor Lgth Anesthesia Del Locatn Provider FOB Unknown 2011 HPI Encounter for routine gynecological examination Details: MANUEL HARRIS is a 44 year old who presents for annual exam. Denies concerns. 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, [facility], [place] Last PAP: 2022 History of abnormal PAP: no Last mammogram: 04/2024 History of abnormal mammogram: benign bx Colon cancer screening: age 46 Other preventative health care screenings: [facility] Female Reproductive History Last Menstrual Period: 05/02/25 Cycle Length: 21-35 Questions: metorrhagia: No, sexually active: Yes, dyspareunia: No and PCB: No ROS Const Constitutional: Denies fatigue, weight gain or weight loss Cardio Card: Denies chest pain Resp Resp: Denies cough or dyspnea on exertion GI GI: Denies abdominal pain, bloating, change in stool character, constipation or vomiting : Reports as per HPI; Denies difficulty voiding, pelvic pain, urinary frequency, urinary incontinence,urinary urgency, vaginal discharge or vaginal pruritus Exam Const General: cooperative, healthy appearing, no acute distress and well developed Orientation: alert, oriented to person and oriented to place [facility] Head: normal to inspection Neck Neck: normal visual inspection Thyroid: thyroid normal Lymphatic: no lymphadenopathy noted Chest Breast inspection: normal inspection of the breasts and normal inspection of theaxillae Breast palpation: normal palpation of the breasts, normal palpation of the axillae and no axillary lymphadenopathy Resp Effort & Inspection: normal respiratory effort GI Palpation: soft, no masses and nontender Rectal Exam: deferred External Female Exam: normal external appearance and normal appearance of the urethra Urethra: normal appearance of the urethra and normal palpation Speculum Exam - Vagina: normal appearance of the vagina and normal vaginal discharge Speculum Exam - Cervix: normal appearance of the cervix Bimanual Exam- Vagina & Uterus: normal bimanual exam, uterine size normal, uterine shape normaland non-tender Bimanual Exam- Adnexa, other: normal adnexae, no masses, normal and non-tender Pelvic Support: normal Neuro General: patient alert and patient oriented x3 Psych Affect: normal affect Coding Level of Care Code Off vis,est,prev 40-64yrs Diagnoses Encounter for gynecological examination without abnormal finding Z01.419 Gynecological examination findings: abnormal findings ABSENT Class 3 severe obesity due to excess calories with serious comorbidity and body mass index (BMI) of45.0 to 49.9 in adult E66.813; Z68.42 Body mass index: BMI 45.0-49.9 Obesity classification: adult class 3 (BMI >= 40) Obesity type: due to excess calories Serious obesity comorbidity presence: with serious comorbidity Assessment and Plan Assessment and Plan (1) Encounter for routine gynecological examination: Qualifiers: Gynecological examination findings: abnormal findings ABSENT Qualified Code(s): Z01.419 - Encounterfor gynecological examination (general) (routine) without abnormal findings (2) Obesity: Status: Chronic Qualifiers: Body mass index: BMI 45.0-49.9 Obesity classification: adult class 3 (BMI >= 40) Obesity type: due to excess calories Serious obesity comorbidity presence: with serious comorbidity Qualified Code(s): E66.813 - Obesity, class 3; Z68.42 - Body mass index [BMI] 45.0-49.9, adult Plan Completed breast and pelvic exam Reviewed diet and exercise Pap 2022 Mammogram ordered breast self exam encouraged monthly Contraception infertility Colonoscopy age 46 RTO 1 year, prn with problems Dia García PAYROLL TAX ANALYST 05/14/25 1138 s HAND DRAWER IN HELPER HAND DRAWER IN HELPER-C> Date _ Dia García HAND DRAWER IN HELPER HAND DRAWER IN HELPER-C Cosigner Signature: Date (if applicable) CC: ~ [facility]03-03-2025 Radiology Diagnostic study note [facility] Imaging Services [address] [place], [place] [address] Breast Limited Unilateral MR#: [id number] Acct: [id number] Name: MANUEL HARRIS Rep #: [id number] : 1980 F 44 From: Floyd Dupree MD PCP: Dr. Napoleon Chambers DO Status: REG CLI Study:Breast Limited Unilateral Date of Exam: 12/17/24 Exam# [id number] Ordering Dr: Kamla Keita MD PROCEDURE: BREAST LIMITED UNILATERAL REASON FOR EXAM: Six-month follow-up of left breast biopsy. COMPARISON: Comparison is made with prior sonogram dated May 17, 2024. TECHNIQUE: Targeted bilateral breast ultrasound. FINDINGS: LEFT: Ultrasound targeted to the upper lateral aspect of the left breast. Dense fibroglandular tissue. A tissue clip marker is seen at the 4 o'clock position of the left breast at 4 cm from the nipple. Stable 1 cm x 0.9 cm hypoechoic nodule at that site. US/Breast Limited Unilateral IMPRESSION: Stable examination. A tissue clip is seen at the biopsy site. BI-RADS 2: BENIGN. RECOMMEND ANNUAL MAMMOGRAPHIC SCREENING. Reading Location: [id number] CC: Dr. Napoleon Chambers DO; Dr. Kamla Keita MD ~ Dray Truck Driver: Signed [facility]03-01-2025 NoteHNO ID: [id number] Author: ZULEYMA PRATT APRN.PAYROLL TAX ANALYST Service: ? Author Type: Nurse Practitioner Type: Progress Notes Filed: 12/15/2024 08:28 Note Text: Subjective HPI Nontoxic-appearing 44-year-old female presents urgent care chief complaint sinus pressure. Duration of symptoms 3 weeks. Associated symptoms sinus pressure ear pain. Symptoms improved then worsened again few days ago. OTC medications none today. History of sinus faction. Denies any chest pain shortness of breath pleuritic pain or hemoptysis. Past medical history prescription medications allergies reviewed. .No chief complaint on file. 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 amoxicillin-clavulanate potassium (AUGMENTIN) 875-125 mg per tablet Take 1 tablet by mouth two times a day for 7 days. hydroCHLOROthiazide 12.5 mg tablet Take 1 tablet by mouth every afternoon. Phentermine HCl 37.5 mg tablet Take 1 tablet by mouth every afternoon. 7.5 mg predniSONE (DELTASONE) 10 mg tablet Take 4 tabs daily for 3 days, then 2 tabs daily for 3 days, then 1 tab daily for 3 days with food. meclizine (ANTIVERT) 12.5 mg tab Take 1 tablet by mouth every 6 hours as needed (dizziness). (Patient not taking: Reported on 09/20/2023) citalopram (CELEXA) 20 mg tablet Take 20 mg by mouth once daily. CALCIUM CARBONATE (CALCIUM 600 ORAL) Take by mouth. (Patient not taking: Reported on 10/02/2022) naproxen 500 mg tablet Take 1 tablet by mouth twice daily as needed. FOR PAIN. TAKE WITH FOOD. (Patient not taking: Reported on 10/18/2019 ) Kcdccgjp-Nm-Bfu-Fe-FA tab Take 1 tablet by mouth. (Patient not taking: Reported on 10/02/2022) FAMILY HISTORY Problem Relation Age of Onset Arthritis Mother DDD DVT Mother after surgery Hypertension Father Diabetes Maternal Grandmother Coronary Artery Disease Paternal Grandmother Heart Paternal Grandmother Colon Cancer Other none Stroke Sister 31 unknown cause Social History Tobacco Use Smoking status: Former Current packs/day: 0.00 Types: Cigarettes Start date: 10/17/1995 Quit date: 10/17/2005 Years since quittin.1 Smokeless tobacco: Never Vaping Use Vaping status: Never Used Substance Use Topics Alcohol use: Yes Comment: social, couple times per month,NOT WHILE Drug use: No BP 126/72 Pulse 84 Temp 36.6 ?C (97.9 ?F) Resp 16 Wt (!) 139 kg (306 lb 7 oz) LMP 11/29/2024 (Exact Date) SpO2 98% BMI 45.25 kg/m? Review of Systems Constitutional: Negative for chills, fever and malaise/fatigue. HENT: Positive for congestion, ear pain and sinus pain. Negative for ear discharge and sore throat. Eyes: Negative for blurred vision, pain, discharge and redness. Respiratory: Negative for cough, hemoptysis, sputum production, shortness of breath, wheezing and stridor. Cardiovascular: Negative for chest pain. Gastrointestinal: Negative for abdominal pain, diarrhea, nausea and vomiting. Musculoskeletal: Negative for myalgias. Skin: Negative for itching and rash. Neurological: Negative for dizziness and headaches. Objective Physical Exam Constitutional: General: She is not in acute distress. Appearance: She is not diaphoretic. HENT: Head: Normocephalic. Jaw: No trismus, tenderness, swelling or pain on movement. Right Ear: Tympanic membrane, ear canal and external ear normal. Left Ear: Tympanic membrane, ear canal and external ear normal. Nose: Congestion present. Right Sinus: Maxillary sinus tenderness present. Left Sinus: Maxillary sinus tenderness present. Mouth/Throat: Mouth: Mucous membranes are moist. Pharynx: Oropharynx is clear. Uvula midline. No pharyngeal swelling, oropharyngeal exudate, posterior oropharyngeal erythema or uvula swelling. Eyes: Conjunctiva/sclera: Conjunctivae normal. Pupils: Pupils are equal, round, and reactive to light. Cardiovascular: Rate and Rhythm: Normal rate and regular rhythm. Heart sounds: Normal heart sounds. Pulmonary: Effort: Pulmonary effort is normal. No tachypnea, accessory muscle usage or respiratory distress. Breath sounds: Normal breath sounds. No stridor. No wheezing, rhonchi or rales. Musculoskeletal: Cervical back: Normal range of motion and neck supple. No edema, erythema, rigidity or tenderness. No pain with movement. Normal range of motion. Lymphadenopathy: Cervical (more content not included)...[facility]03-01-2025 History of Present illness Narrative* Zuleyma Pratt, GUILLERMO.PAYROLL TAX ANALYST - 12/15/2024 8:25 AM EST Subjective HPI Nontoxic-appearing 44-year-old female presents urgent care chief complaint sinus pressure. Durationof symptoms 3 weeks. Associated symptoms sinus pressure ear pain. Symptoms improved then worsened again few days ago. OTC medications none today. History of sinus faction. Denies any chest pain shortness of breath pleuritic pain or hemoptysis. Past medical history prescription medications allergiesreviewed. .No chief complaint on file. 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 amoxicillin-clavulanate potassium (AUGMENTIN) 875-125 mg per tablet Take 1 tablet by mouth two times a day for 7 days. hydroCHLOROthiazide 12.5 mg tablet Take 1 tablet by mouth every afternoon. Phentermine HCl 37.5 mg tablet Take 1 tablet by mouth every afternoon. 7.5 mg predniSONE (DELTASONE) 10 mg tablet Take 4 tabs daily for 3 days, then 2 tabs daily for 3 days, then 1 tab daily for 3 days with food. meclizine (ANTIVERT) 12.5 mg tab Take 1 tablet by mouth every 6 hours as needed (dizziness). (Patient not taking: Reported on 09/20/2023) citalopram (CELEXA) 20 mg tablet Take 20 mg by mouth once daily. CALCIUM CARBONATE (CALCIUM 600 ORAL) Take by mouth. (Patient not taking: Reported on 10/02/2022) naproxen 500 mg tablet Take 1 tablet by mouth twice daily as needed. FOR PAIN. TAKE WITH FOOD. (Patient not taking: Reported on 10/18/2019 ) Xstgfpcp-Sq-Dyv-Fe-FA tab Take 1 tablet by mouth. (Patient not taking: Reported on 10/02/2022) FAMILY HISTORY Problem Relation Age of Onset Arthritis Mother DDD DVT Mother after surgery Hypertension Father Diabetes Maternal Grandmother Coronary Artery Disease Paternal Grandmother Heart Paternal Grandmother Colon Cancer Other none Stroke Sister 31 unknown cause Social History Tobacco Use Smoking status: Former Current packs/day: 0.00 Types: Cigarettes Start date: 10/17/1995 Quit date: 10/17/2005 Years since quittin.1 Smokeless tobacco: Never Vaping Use Vaping status: Never Used Substance Use Topics Alcohol use: Yes Comment: social, couple times per month,NOT WHILE Drug use: No BP 126/72 Pulse 84 Temp 36.6 C (97.9 F) Resp 16 Wt (!) 139 kg (306 lb 7 oz) LMP 11/29/2024 (Exact Date) SpO2 98% BMI 45.25 kg/m Review of Systems Constitutional: Negative for chills, fever and malaise/fatigue. HENT: Positive for congestion, ear pain and sinus pain. Negative for ear discharge and sore throat. Eyes: Negative for blurred vision, pain, discharge and redness. Respiratory: Negative for cough, hemoptysis, sputum production, shortness of breath, wheezing and stridor. Cardiovascular: Negative for chest pain. Gastrointestinal: Negative for abdominal pain, diarrhea, nausea and vomiting. Musculoskeletal: Negative for myalgias. Skin: Negative for itching and rash. Neurological: Negative for dizziness and headaches. Objective Physical Exam Constitutional: General: She is not in acute distress. Appearance: She is not diaphoretic. HENT: Head: Normocephalic. Jaw: No trismus, tenderness, swelling or pain on movement. Right Ear: Tympanic membrane, ear canal and external ear normal. Left Ear: Tympanic membrane, ear canal and external ear normal. Nose: Congestion present. Right Sinus: Maxillary sinus tenderness present. Left Sinus: Maxillary sinus tenderness present. Mouth/Throat: Mouth: Mucous membranes are moist. Pharynx: Oropharynx is clear. Uvula midline. No pharyngeal swelling, oropharyngeal exudate, posterior oropharyngeal erythema or uvula swelling. Eyes: Conjunctiva/sclera: Conjunctivae normal. Pupils: Pupils are equal, round, and reactive to light. Cardiovascular: Rate and Rhythm: Normal rate and regular rhythm. Heart sounds: Normal heart sounds. Pulmonary: Effort: Pulmonary effort is normal. No tachypnea, accessory muscle usage or respiratory distress. Breath sounds: Normal breath sounds. No stridor. No wheezing, rhonchi or rales. Musculoskeletal: Cervical back: Normal range of motion and neck supple. No edema, erythema, rigidity or tenderness. No pain with movement. Normal range of motion. Lymphadenopathy: Cervical: No cervical adenopathy. Skin: General: Skin is warm and dry. Neurological: Mental Status: She is alert and oriented to person, place, and time. ASSESSMENT/PLAN: 1. Bacterial sinusitis - ICD9: 473.9, 041.9, ICD10: J32.9, B96.89 Diagnosed bacterial sinusitis. Placed on Augmentin. Signs of double sickening. Patient was educatedon supportive therapies. Patient will follow up with primary care provider as needed. Patient was instructed to immediately proceed to emergency room for any new, worsening, or symptoms lasting longer than anticipated. The patient's clinical presentation is otherwise unremarkable at this time. Based on exam and clinical finding, the patient is stable for discharge. Plan of care was discussed withpatient. Patient verbalizes understanding and agrees to plan of care. This note was generated usingVoxie software. It may contain errors in wording, punctuation, or spelling. Zuleyma Pratt APRN.RITCHIE documented [facility] History of Present illness Narrative* Cielo Koo APRN.RITCHIE - 09/20/2023 8:41 AM EST This note was created using Maginriter. Subjective Manuel Harris is a 43 year old female. 43 year old female with PMH HTN presents for illness. Acute onset 2 weeks ago +sore throat States yesterday evening symptoms seemed to worsen. +tender lymph nodes +nasal congestion Denies ear complaints. Denies cough. Denies N/V/D Denies tobacco usage. Usually takes seasonal allergy medicines. 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 The history is provided by the patient. No world language teacher was used. Sore Throat This is a new problem. The current episode started 1 to 4 weeks ago. The problem has been graduallyworsening. Neither side of throat is experiencing more pain than the other. There has been no fever. The pain is at a severity of 5/10. The pain is mild. Associated symptoms include congestion and swollen glands. Pertinent negatives include no abdominal pain, coughing, diarrhea, drooling, ear discharge, ear pain, headaches, hoarse voice, plugged ear sensation, neck pain, shortness of breath, stridor, trouble swallowing or vomiting. She has had exposure to strep. She has tried nothing for the symptoms. The treatment provided no relief. 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 Phentermine HCl 37.5 mg tablet Take 1 tablet by mouth every afternoon. 7.5 mg citalopram (CELEXA) 20 mg tablet Take 20 mg by mouth once daily. predniSONE (DELTASONE) 10 mg tablet Take 4 tabs daily for 3 days, then 2 tabs daily for 3 days, then 1 tab daily for 3 days with food. meclizine (ANTIVERT) 12.5 mg tab Take 1 tablet by mouth every 6 hours as needed (dizziness). (Patient not taking: Reported on 09/20/2023) CALCIUM CARBONATE (CALCIUM 600 ORAL) Take by mouth. (Patient not taking: Reported on 10/02/2022) naproxen 500 mg tablet Take 1 tablet by mouth twice daily as needed. FOR PAIN. TAKE WITH FOOD. (Patient not taking: Reported on 10/18/2019 ) Etimdgow-Sk-Qka-Fe-FA tab Take 1 tablet by mouth. (Patient not taking: Reported on 10/02/2022) FAMILY HISTORY Problem Relation Age of Onset Arthritis Mother DDD DVT Mother after surgery Hypertension Father Diabetes Maternal Grandmother Coronary Artery Disease Paternal Grandmother Heart Paternal Grandmother Colon Cancer Other none Stroke Sister 31 unknown cause Social History Tobacco Use Smoking status: Former Years: 10 Types: Cigarettes Quit date: 10/17/2005 Years since quittin.9 Smokeless tobacco: Never Vaping Use Vaping Use: Never used Substance Use Topics Alcohol use: Yes Comment: social, couple times per month,NOT WHILE Drug use: No Review of Systems Constitutional: Negative for activity change, appetite change, chills, fatigue and fever. HENT: Positive for congestion, postnasal drip, sinus pressure, sinus pain and sore throat. Negativefor drooling, ear discharge, ear pain, hoarse voice and trouble swallowing. Eyes: Negative for photophobia, pain, discharge, redness and itching. Respiratory: Negative for apnea, cough, chest tightness, shortness of breath and stridor. Cardiovascular: Negative for chest pain, palpitations and leg swelling. Gastrointestinal: Negative for abdominal pain, diarrhea and vomiting. Musculoskeletal: Negative for arthralgias, back pain and neck pain. Skin: Negative for color change, pallor, rash and wound. Allergic/Immunologic: Positive for environmental allergies. Neurological: Negative for dizziness, facial asymmetry and headaches. Hematological: Negative for adenopathy. Does not bruise/bleed easily. Psychiatric/Behavioral: Negative for agitation and behavioral problems. Objective BP 130/71 Pulse 73 Temp 36.4 C (97.5 F) Resp 18 Wt (!) 138.8 kg (306 lb) LMP 09/19/2023 (Exact Date) SpO2 98% BMI 45.19 kg/m Physical Exam Vitals and nursing note reviewed. Constitutional: General: She is not in acute distress. Appearance: Normal appearance. She is normal weight. She is not ill-appearing, toxic-appearing or diaphoretic. HENT: Head: Normocephalic and atraumatic. Right Ear: Ear canal and external ear normal. Left Ear: Ear canal and external ear normal. Nose: Congestion present. No rhinorrhea. Mouth/Throat: Mouth: Mucous membranes are moist. Pharynx: Posterior oropharyngeal erythema (posterior oropharynx erythema. Uvula midline. Handling secretions) present. No oropharyngeal exudate. Eyes: General: Right eye: No discharge. Left eye: No discharge. Extraocular Movements: Extraocular movements intact. Conjunctiva/sclera: Conjunctivae normal. Pupils: Pupils are equal, round, and reactive to light. Cardiovascular: Rate and Rhythm: Normal rate and regular rhythm. Pulses: Normal pulses. Heart sounds: Normal heart sounds. No murmur heard. No friction rub. Pulmonary: Effort: Pulmonary effort is normal. No respiratory distress. Breath sounds: Normal breath sounds. No stridor. No wheezing, rhonchi or rales. Chest: Chest wall: No tenderness. Abdominal: General: Abdomen is flat. There is no distension. Palpations: Abdomen is soft. There is no mass. Tenderness: There is no abdominal tenderness. There is no right CVA tenderness, left CVA tenderness, guarding or rebound. Hernia: No hernia is present. Musculoskeletal: General: No swelling, tenderness, deformity or signs of injury. Normal range of motion. Cervical back: Normal range of motion and neck supple. No rigidity. Right lower leg: No edema. Left lower leg: No edema. Lymphadenopathy: Cervical: Cervical adenopathy present. Skin: General: Skin is warm and dry. Coloration: Skin is not jaundiced or pale. Findings: No bruising, erythema, lesion or rash. Neurological: General: No focal deficit present. Mental Status: She is alert and oriented to person, place, and time. Cranial Nerves: No cranial nerve deficit. Sensory: No sensory deficit. Motor: No weakness. Coordination: Coordination normal. Gait: Gait normal. Psychiatric: Mood and Affect: Mood normal. Behavior: Behavior normal. Thought Content: Thought content normal. Judgment: Judgment normal. Assessment and Plan ASSESSMENT/PLAN: 1. Upper respiratory tract infection, unspecified type - ICD9: 465.9, ICD10: J06.9 Endorses sore throat that she believed to be allergies x 2 weeks Yesterday evening sore throat worsened +lymph node tenderness - Group A strep molecular testing negative - Symptomatic treatment with prn analgesia - Supportive care with fluids and rest - The patient may also use OTC cough and cold meds as needed, warm salt water gargles, throat lozenges and/or OTC throat spray as needed, and nasal saline gtts and suction prn. - Follow up in 3-5 days if symptoms persist or sooner if worsening of symptoms - STREP A MOLECULAR (POC) - COVID & INFLUENZA A/B & RSV NAAT, ROUTINE-pending and obtained - PREDNISONE 10 MG TABLET Cielo Koo APRN.PAYROLL TAX ANALYST documented in this encounterM[facility]05-[facility] History of Present illness Narrative* Chip Brewer APRN.PAYROLL TAX ANALYST - 02/17/2023 2:45 PM EDT Subjective HPI HPI Manuel Harris is a 42 year old female who presents today for CC of dizziness, hearing sensitivity. This started 3 days ago. Has tried otc medication for relief. Symptoms are worsened by turning ofhead. Risk factors recent uri/covid. Nonsmoker. Denies uri symptoms currently. .Patient presents with: Dizziness: Pt reported noise sensitivity x3 days, denied fall. 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 meclizine (ANTIVERT) 12.5 mg tab Take 1 tablet by mouth every 6 hours as needed (dizziness). CALCIUM CARBONATE (CALCIUM 600 ORAL) Take by mouth. (Patient not taking: Reported on 10/02/2022) naproxen 500 mg tablet Take 1 tablet by mouth twice daily as needed. FOR PAIN. TAKE WITH FOOD. (Patient not taking: Reported on 10/18/2019 ) Cefypiul-Nw-Icx-Fe-FA tab Take 1 tablet by mouth. (Patient not taking: Reported on 10/02/2022) FAMILY HISTORY Problem Relation Age of Onset Arthritis Mother DDD DVT Mother after surgery Hypertension Father Diabetes Maternal Grandmother Coronary Artery Disease Paternal Grandmother Heart Paternal Grandmother Colon Cancer Other none Stroke Sister 31 unknown cause Social History Tobacco Use Smoking status: Former Years: 10.00 Types: Cigarettes Quit date: 10/17/2005 Years since quittin.3 Smokeless tobacco: Never Vaping Use Vaping Use: Never used Substance Use Topics Alcohol use: Yes Comment: social, couple times per month,NOT WHILE Drug use: No ROS Objective Physical Exam Constitutional: General: She is not in acute distress. Appearance: She is not toxic-appearing or diaphoretic. HENT: Head: Normocephalic and atraumatic. Right Ear: Hearing, tympanic membrane, ear canal and external ear normal. Left Ear: Hearing, tympanic membrane, ear canal and external ear normal. Nose: Nose normal. Mouth/Throat: Pharynx: Uvula midline. No pharyngeal swelling, oropharyngeal exudate, posterior oropharyngeal erythema or uvula swelling. Eyes: General: Lids are normal. Lids are everted, no foreign bodies appreciated. No scleral icterus. Right eye: No discharge. Left eye: No discharge. Extraocular Movements: Extraocular movements intact. Right eye: No nystagmus. Left eye: No nystagmus. Conjunctiva/sclera: Conjunctivae normal. Pupils: Pupils are equal, round, and reactive to light. Neck: Trachea: Trachea normal. Cardiovascular: Rate and Rhythm: Normal rate and regular rhythm. Heart sounds: Normal heart sounds. Pulmonary: Effort: Pulmonary effort is normal. Breath sounds: Normal breath sounds. Musculoskeletal: Cervical back: Normal range of motion and neck supple. Lymphadenopathy: Cervical: No cervical adenopathy. Right cervical: No superficial cervical adenopathy. Left cervical: No superficial cervical adenopathy. Skin: Findings: No rash. Neurological: Mental Status: She is alert. She is not disoriented. Cranial Nerves: Cranial nerves 2-12 are intact. No facial asymmetry. Sensory: Sensation is intact. Motor: Motor function is intact. Coordination: Romberg sign negative. Coordination normal. Subutk-Cupk-Oshprg Test and Heel to Mclaughlin Test normal. Rapid alternating movements normal. Gait: Gait is intact. Deep Tendon Reflexes: Reflex Scores: Patellar reflexes are 1+ on the right side and 1+ on the left side. ASSESSMENT/PLAN: 1. Dizziness - ICD9: 780.4, ICD10: R42 Suspect bppv, but concerns with recent covid infection -use medication as prescribed -make appointment with pcp joe Worsening s/s go to ER - MECLIZINE 12.5 MG TABLET Chip Brewer APRN.PAYROLL TAX ANALYST documented in this encounterM[facility]03-30-[facility] History of Present illness Narrative* Cynthia Dunham PA-C - 01/13/2023 12:36 PM EDT This note was created using [employer]. Subjective Manuel Harris is a 42 year old female. HPI Presents with a chief complaint of sore throat, headache, body aches over the past day. She had strep 6 weeks ago and this feels similar. Her face feels flushed but no fever. No vomiting diarrhea or abdominal pain. No cough or runny nose. 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 She has had a tonsillectomy. Review of Systems Constitutional: Positive for fatigue. Negative for fever. HENT: Positive for sore throat. Negative for congestion. Respiratory: Negative. Cardiovascular: Negative. Gastrointestinal: Negative. Genitourinary: Negative. Musculoskeletal: Positive for myalgias. Neurological: Positive for headaches. All other systems reviewed and are negative. 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 amoxicillin (AMOXIL) 500 mg capsule Take 1 capsule by mouth twice daily for 10 days. 20 capsule 0 CALCIUM CARBONATE (CALCIUM 600 ORAL) Take by mouth. (Patient not taking: Reported on 10/02/2022) naproxen 500 mg tablet Take 1 tablet by mouth twice daily as needed. FOR PAIN. TAKE WITH FOOD. (Patient not taking: Reported on 10/18/2019 ) 0 Fjzumsar-Gi-Iej-Fe-FA tab Take 1 tablet by mouth. (Patient not taking: Reported on 10/02/2022) No current facility-administered medications for this visit. PAST SURGICAL HISTORY Procedure Laterality Date ARTHROSCOPY KNEE DIAGNOSTIC W/WO SYNOVIAL BX SPX right knee ([place]) - meniscus tear DELIVERY ONLY 09/25/12 , low transverse PAST SURGICAL HISTORY OF wisdom teeth extraction PAST SURGICAL HISTORY OF RIGHT FOOT TONSILLECTOMY & ADENOIDECTOMY AGE 13/> FAMILY HISTORY Problem Relation Age of Onset Arthritis Mother DDD DVT Mother after surgery Hypertension Father Diabetes Maternal Grandmother Coronary Artery Disease Paternal Grandmother Heart Paternal Grandmother Colon Cancer Other none Stroke Sister 31 unknown cause Social History Tobacco Use Smoking status: Former Years: 10.00 Types: Cigarettes Quit date: 10/17/2005 Years since quittin.2 Smokeless tobacco: Never Vaping Use Vaping Use: Never used Substance Use Topics Alcohol use: Yes Comment: social, couple times per month,NOT WHILE Drug use: No Objective BP 146/80 Pulse 100 Temp 37.2 C (98.9 F) Resp 21 Wt (!) 140.5 kg (309 lb 12.8 oz) LMP 04/08/2017 SpO2 99% BMI 45.75 kg/m Physical Exam Vitals reviewed. Constitutional: Appearance: Normal appearance. HENT: Head: Normocephalic and atraumatic. Right Ear: Tympanic membrane, ear canal and external ear normal. Left Ear: Tympanic membrane, ear canal and external ear normal. Nose: Nose normal. Mouth/Throat: Mouth: Mucous membranes are moist. Pharynx: Pharyngeal swelling and posterior oropharyngeal erythema present. No oropharyngeal exudateor uvula swelling. Comments: Tonsils surgically absent. Neurological: Mental Status: She is alert. Assessment and Plan ASSESSMENT/PLAN: 1. Strep pharyngitis - ICD9: 034.0, ICD10: J02.0 - Alere Strep Test positive, no culture pending - Amoxicillin for 10 days. - Discussed supportive care treatment with fluids, rest and analgesia. - Contagious dz precautions discussed- including considered contagious until on antibiotics for 24 hours - The patient should follow up in 3-5 days if symptoms persist or worsen - STREP A MOLECULAR (POC) Cynthia Dunham PA-C documented in this encounterM[facility]02[facility]2023 NotePap Smear Specimen AdequacyFebruary 2022 6:09pmComment.Satisfactory for evaluation. Endocervical and/or squamous metaplasticcells (endocervical component)are present.[facility] INTERFACED A#[id number] Lady of Mercy HospitalComment on above: Satisfactory for evaluation. Endocervical and/or squamous metaplasticcells (endocervical component)are present.12-03-2022 Instructions* Patient Instructions* Deidra Armenta APRN.CNP - 12/03/2022 7:27 AM EST ASSESSMENT/PLAN: 1. Sore throat - ICD9: 462, ICD10: J02.9 (primary diagnosis) - Alere Strep Test positive, no culture pending - Amoxicillin for 10 days. - Discussed supportive care treatment with fluids, rest and analgesia. - The patient may also use warm salt water gargles, throat lozenges and/or OTC throat spray as needed. - Contagious dz precautions discussed- including considered contagious until on antibiotics for 24 hours - Call back if drooling, increased temperature, symptoms of dehydration and/or still sick in one week - STREP A MOLECULAR (POC) 2. Strep throat - ICD9: 034.0, ICD10: J02.0 - AMOXICILLIN 500 MG CAPSULE - Follow-up with your PCP in 3-5 days if symptoms have not improved or sooner if symptoms worsen - Discussed red flags and need for immediate medical evaluation if any occur. - Discussed supportive care treatment with fluids, rest and analgesia. - Discussed expected course of illness Deidra Armenta APRN.[employer] ANALYST STREP INFECTIONS: Streptococcal bacteria can cause a sore throat, ear and sinus infections, and skin diseases. Strep throat is diagnosed by a special throat swab or culture test. These infections require either an antibiotic shot or an oral antibiotic medicine to get rid of all the bacteria and prevent rheumatic fever, a dangerous complication. The symptoms of Strep infection, however, usually get better after just 2-3 days of drug treatment. These infections are very contagious; any close contacts who have a fever, sore throat, or illness symptoms should see their doctor right away. Strep is no longer contagious after 24 hours of antibiotic treatment so you may return to school or work if your fever and pain are better in one day. Strep infections can cause serious complications including throat abscess, rheumatic fever and kidney disease, so be sure to take all your antibiotic medicine. See your doctor or return here if your symptoms worsen or are not improved in 3 days or for difficulty breathing or inability to swallow. documented in this encounterM[facility] Hospital02-17-2023 History of Present illness Narrative* Deidra Armenta APRN.CNP - 12/03/2022 7:22 AM EST Subjective Sore Throat Associated symptoms include headaches. Pertinent negatives include no congestion, coughing or vomiting. Manuel Harris is a 42 year old female who presents with sore throat, headache, and body aches for the past 2 days. Review of Systems Constitutional: Negative for chills and fever. HENT: Positive for sore throat. Negative for congestion. Respiratory: Negative for cough. Cardiovascular: Negative. Gastrointestinal: Positive for nausea. Negative for vomiting. Musculoskeletal: Positive for myalgias. Skin: Negative for rash. Neurological: Positive for headaches. 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 amoxicillin (POLYMOX, AMOXIL) 500 mg capsule Take 1 capsule by mouth twice daily for 10 days. CALCIUM CARBONATE (CALCIUM 600 ORAL) Take by mouth. (Patient not taking: Reported on 10/02/2022) naproxen 500 mg tablet Take 1 tablet by mouth twice daily as needed. FOR PAIN. TAKE WITH FOOD. (Patient not taking: Reported on 10/18/2019 ) Vdnvpvas-Nq-Cds-Fe-FA tab Take 1 tablet by mouth. (Patient not taking: Reported on 10/02/2022) FAMILY HISTORY Problem Relation Age of Onset Arthritis Mother DDD DVT Mother after surgery Hypertension Father Diabetes Maternal Grandmother Coronary Artery Disease Paternal Grandmother Heart Paternal Grandmother Colon Cancer Other none Stroke Sister 31 unknown cause Social History Tobacco Use Smoking status: Former Years: 10.00 Types: Cigarettes Quit date: 10/17/2005 Years since quittin.1 Smokeless tobacco: Never Vaping Use Vaping Use: Never used Substance Use Topics Alcohol use: Yes Comment: social, couple times per month,NOT WHILE Drug use: No Objective Physical Exam Vitals and nursing note reviewed. Constitutional: General: She is not in acute distress. Appearance: She is obese. She is not toxic-appearing. HENT: Mouth/Throat: Mouth: Mucous membranes are moist. Pharynx: Uvula midline. Posterior oropharyngeal erythema present. No oropharyngeal exudate. Cardiovascular: Rate and Rhythm: Normal rate and regular rhythm. Heart sounds: Normal heart sounds. Pulmonary: Effort: Pulmonary effort is normal. No respiratory distress. Breath sounds: Normal breath sounds. No wheezing or rales. Musculoskeletal: Cervical back: Neck supple. Lymphadenopathy: Cervical: No cervical adenopathy. Skin: General: Skin is warm and dry. Findings: No erythema or rash. Neurological: Mental Status: She is alert. ASSESSMENT/PLAN: 1. Sore throat - ICD9: 462, ICD10: J02.9 (primary diagnosis) - Alere Strep Test positive, no culture pending - Amoxicillin for 10 days. - Discussed supportive care treatment with fluids, rest and analgesia. - The patient may also use warm salt water gargles, throat lozenges and/or OTC throat spray as needed. - Contagious dz precautions discussed- including considered contagious until on antibiotics for 24 hours - Call back if drooling, increased temperature, symptoms of dehydration and/or still sick in one week - STREP A MOLECULAR (POC) 2. Strep throat - ICD9: 034.0, ICD10: J02.0 - AMOXICILLIN 500 MG CAPSULE - Follow-up with your PCP in 3-5 days if symptoms have not improved or sooner if symptoms worsen - Discussed red flags and need for immediate medical evaluation if any occur. - Discussed supportive care treatment with fluids, rest and analgesia. - Discussed expected course of illness Deidra Armenta APRN.CNP documented in this encounterM[facility] Hospital12-17-2022 Instructions* Patient Instructions* Cielo Koo APRN.CNP - 10/02/2022 9:08 AM EST RESPIRATORY INFECTION GENERAL INFORMATION: An upper respiratory tract infection, or cold, is a viral infection of the airway passages. It can be caused by any one of almost 200 different viruses. Common symptoms include a runny or stuffy nose, sneezing, watery eyes, sore throat, cough, and slight fever. Colds are contagious, especially during the first 3 or 4 days and cannot be cured by antibiotics. They are spread by coughs, sneezes, anddirect contact, especially [id number]. A respiratory tract infection usually clears up in a few days, but some people may be sick for a week or two. INSTRUCTIONS: 1. Be careful not to blow your nose too hard because this may cause a nosebleed. 2. Use a cool-mist humidifier (vaporizer) to increase air moisture. This will make it easier for you to breathe. Do not use hot steam. 3. Rest as much as possible and get plenty of sleep. 4. Wash your hands often, especially after you blow your nose. Cover your mouth and nose with a tissue when you sneeze or cough. 5. Drink plenty of clear fluids (8 glasses a day) such as water, fruit juice, tea, clear soups, andcarbonated beverages. CONTACT YOUR DOCTOR IF : 1. Your fever lasts more than 3 days. 2. You have a sore throat that gets worse or you see white or yellow spots in your throat. 3. Your cough gets worse or lasts more than 10 days. 4. You develop a rash anywhere on your skin. 5. You have an earache or a headache. 6. You have thick greenish or yellowish discharge from your nose. RETURN IMMEDIATELY IF: 1. You cough up thick yellow, green, lindo, or bloody sputum. 2. You have difficulty breathing, pain in your chest, or your skin or nails look lindo or blue. 3. You have shaking chills or a temperature over 102 F (39 C). documented in this encounterM[facility] Hospital12-17-2022 History of Present illness Narrative* Cielo Koo APRN.CNP - 10/02/2022 8:23 AM EST This note was created using [employer]. Subjective Manuel Harris is a 42 year old female. 42 year old female with no PMH presents for illness. Acute onset this past Tuesday +chest congestion +worsenign cough Endorses the cough has pain in her back shoulder blades +achy +fever/chills Of note, On September 19 she went to [facility] Diagnosed with laryngitis (presented with complaints of headache, sinus congestion) Prescribed Omnicef and Tessalon Perles and allergy medicine. 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 The history is provided by the patient. No world language teacher was used. Cough This is a new problem. The current episode started more than 1 week ago. The problem occurs constantly. The problem has not changed since onset.The cough is Productive of sputum. The maximum temperature recorded prior to her arrival was 100 to 100.9 F. Associated symptoms include chills, headaches,rhinorrhea, myalgias, shortness of breath and wheezing. Pertinent negatives include no chest pain, no sweats, no ear congestion, no ear pain and no eye redness. Treatments tried: ATB and decongestant. The treatment provided no relief. She is not a smoker. Her past medical history does not include bronchitis, pneumonia, bronchiectasis, COPD, emphysema or asthma. 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 CALCIUM CARBONATE (CALCIUM 600 ORAL) Take by mouth. (Patient not taking: Reported on 10/02/2022) naproxen 500 mg tablet Take 1 tablet by mouth twice daily as needed. FOR PAIN. TAKE WITH FOOD. (Patient not taking: Reported on 10/18/2019 ) Jxhrkmwq-Tq-Pye-Fe-FA tab Take 1 tablet by mouth. (Patient not taking: Reported on 10/02/2022) FAMILY HISTORY Problem Relation Age of Onset Arthritis Mother DDD DVT Mother after surgery Hypertension Father Diabetes Maternal Grandmother Coronary Artery Disease Paternal Grandmother Heart Paternal Grandmother Colon Cancer Other none Stroke Sister 31 unknown cause Social History Tobacco Use Smoking status: Former Years: 10.00 Types: Cigarettes Quit date: 10/17/2005 Years since quittin.9 Smokeless tobacco: Never Vaping Use Vaping Use: Never used Substance Use Topics Alcohol use: Yes Comment: social, couple times per month,NOT WHILE Drug use: No Review of Systems Constitutional: Positive for appetite change, chills, fatigue and fever. HENT: Positive for congestion and rhinorrhea. Negative for ear pain. Eyes: Negative for redness. Respiratory: Positive for cough, shortness of breath and wheezing. Negative for apnea, choking and chest tightness. Cardiovascular: Negative for chest pain, palpitations and leg swelling. Gastrointestinal: Negative for abdominal pain, diarrhea, nausea and vomiting. Musculoskeletal: Positive for myalgias. Negative for back pain. Skin: Negative for color change, pallor, rash and wound. Allergic/Immunologic: Negative for environmental allergies, food allergies and immunocompromised state. Neurological: Positive for headaches. Hematological: Negative for adenopathy. Does not bruise/bleed easily. Psychiatric/Behavioral: Negative for agitation and behavioral problems. Objective BP 148/68 Pulse 110 Temp 37.4 C (99.4 F) Resp 21 Wt (!) 137.7 kg (303 lb 9.6 oz) LMP 04/08/2017 SpO2 98% BMI 44.83 kg/m Physical Exam Vitals and nursing note reviewed. Constitutional: General: She is not in acute distress. Appearance: Normal appearance. She is normal weight. She is not ill-appearing, toxic-appearing or diaphoretic. HENT: Head: Normocephalic and atraumatic. Right Ear: Ear canal and external ear normal. Left Ear: Ear canal and external ear normal. Nose: Nose normal. No congestion or rhinorrhea. Mouth/Throat: Mouth: Mucous membranes are moist. Pharynx: No oropharyngeal exudate or posterior oropharyngeal erythema. Eyes: General: Right eye: No discharge. Left eye: No discharge. Extraocular Movements: Extraocular movements intact. Conjunctiva/sclera: Conjunctivae normal. Pupils: Pupils are equal, round, and reactive to light. Cardiovascular: Rate and Rhythm: Normal rate and regular rhythm. Pulses: Normal pulses. Heart sounds: Normal heart sounds. No murmur heard. No friction rub. Pulmonary: Effort: Pulmonary effort is normal. No respiratory distress. Breath sounds: Normal breath sounds. No stridor. No wheezing, rhonchi or rales. Chest: Chest wall: No tenderness. Abdominal: General: Abdomen is flat. There is no distension. Palpations: Abdomen is soft. There is no mass. Tenderness: There is no abdominal tenderness. There is no right CVA tenderness, left CVA tenderness, guarding or rebound. Hernia: No hernia is present. Musculoskeletal: General: No swelling, tenderness, deformity or signs of injury. Normal range of motion. Cervical back: Normal range of motion and neck supple. No rigidity. Right lower leg: No edema. Left lower leg: No edema. Lymphadenopathy: Cervical: No cervical adenopathy. Skin: General: Skin is warm and dry. Capillary Refill: Capillary refill takes less than 2 seconds. Coloration: Skin is not jaundiced or pale. Findings: No bruising, erythema, lesion or rash. Neurological: General: No focal deficit present. Mental Status: She is alert and oriented to person, place, and time. Cranial Nerves: No cranial nerve deficit. Sensory: No sensory deficit. Motor: No weakness. Coordination: Coordination normal. Gait: Gait normal. Psychiatric: Mood and Affect: Mood normal. Behavior: Behavior normal. Thought Content: Thought content normal. Judgment: Judgment normal. Assessment and Plan ASSESSMENT/PLAN: 1. Acute cough - ICD9: 786.2, ICD10: R05.1 (primary diagnosis) Has been ongoing Has been treated for sinus infection, Placed on Omnicef. She presents concerned for a pneumonia - XR CHEST 2V FRONTAL/LAT-negative - COVID WITH FLUA+B, ROUTINE-obtained and pending 2. Viral illness - ICD9: 079.99, ICD10: B34.9 - Discussed likely viral etiology and rationale for treatment. Has not had improvement with ATB, including continued regimen by her PCP - Symptomatic treatment with prn analgesia - Supportive care with fluids and rest - The patient may also use OTC cough and cold meds as needed, warm salt water gargles, throat lozenges and/or OTC throat spray as needed, and nasal saline gtts and suction prn. - Follow up in 3-5 days if symptoms persist or sooner if worsening of symptoms - COVID WITH FLUA+B, ROUTINE 3. URI, acute - ICD9: 465.9, ICD10: J06.9 Rapid strep negative, - Symptomatic treatment with prn analgesia - Supportive care with fluids and rest - COVID WITH FLUA+B, ROUTINE Cielo Koo APRN.RITCHIE documented in this encounterM[facility]10-11-2013 History of Past illness Narrative* Problem Noted Date Resolved Date Abdominal pain 07/27/2013 04/12/2016 Last Assessment & Plan: Had abdominal pain over the weekend and come to the ER she is a ER follow up. 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 No blood in the stool no weight loss or fevers Breech presentation @ 29 wks 07/26/2012 Overview: RR_ Plans c/s- still breech 36 weeks, declines version Abnormal glucose complicating 07/13/2010/31/2012 Overview: 3 of 4 values normal for 3 hr GTT/not gest diabetic. Supervision of normal first 03/23/2012 10/31/2012 Nausea/vomiting in 02/25/2012 Overview: February 25, 2012 RR- N/V q am. Will try vit b6 and john, small frequent meals, ect Obesity, unspecified 02/15/2012 04/12/2016 Overview: Patient is obese. One-hour GCT done. February 25, 2012 RR- d/w her importance of exercise, wt management and wt gain in . She will try to keep wt gain to 15 lbs or less Other hammer toe (acquired) 12/08/201103/18 Abnormality of gait 09/24/2011 10/31/2012 Other disorders of bone and cartilage(733.99) 10/31/2012 Routine general medical exam ination at a health care facility 06/17/2011 01/27/2012 Overview: 06/17/2011, [facility] OLD RECORDS -- received 06/22/2011, scanned (68 pages, kept for reference only) Routine gynecological examination 06/17/2011 01/27/2012 Overview: [facility] [place] Pineal gland cyst 06/17/2011 07/28/2012 Overview: Found on MRI work-up for migraine, incidental finding Female infertility of other specified origin 10/31/2012 Overview: She has a history of in vitro fertilization by Dr. Bueno. The transfer date was January 13, 2012. Patient did call [facility] complaining of scant spotting when she wiped once on February 07. She denies any spotting since then. A quantitative hCG was done January 27, 2012 that was 1098 and a repeat quantitative hCG was done February 02 that was 8610. An ultrasound was done February 12 in [place]. The details are in the paper chart at [facility] RN office and unavailable today for review. Patient does state the ultrasound showed an EDC of September 30, 2012. Patient is using progesterone suppositories. documented as of this encounter (statuses as of 10/02/2022) [facility] History of Past illness Narrative* Problem Noted Date Resolved Date Abdominal pain 07/27/2013 04/12/2016 Last Assessment & Plan: Had abdominal pain over the weekend and come to the ER she is a ER follow up. 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 No blood in the stool no weight loss or fevers Breech presentation @ 29 wks 07/26/2012 Overview: RR_ Plans c/s- still breech 36 weeks, declines version Abnormal glucose complicating 07/13/20 12 10/31/2012 Overview: 3 of 4 values normal for 3 hr GTT/not gest diabetic. Supervision of normal first 03/23/2012 10/31/2012 Nausea/vomiting in 02/25/2012 Overview: February 25, 2012 RR- N/V q am. Will try vit b6 and john, small frequent meals, ect Obesity, unspecified 02/15/2012 04/12/2016 Overview: Patient is obese. One-hour GCT done. February 25, 2012 RR- d/w her importance of exercise, wt management and wt gain in . She will try to keep wt gain to 15 lbs or less Other hammer toe (acquired) 12/08/201103/18 Abnormality of gait 09/24/2011 10/31/2012 Other disorders of bone and cartilage(733.99) 10/31/2012 Routine general medical exam ination at a health care facility 06/17/2011 01/27/2012 Overview: 06/17/2011, [facility] OLD RECORDS -- received 06/22/2011, scanned (68 pages, kept for reference only) Routine gynecological examination 06/17/2011 01/27/2012 Overview: [facility], [facility] Mable Pineal gland cyst 06/17/2011 07/28/2012 Overview: Found on MRI work-up for migraine, incidental finding Female infertility of other specified origin 10/31/2012 Overview: She has a history of in vitro fertilization by Dr. Bueno. The transfer date was January 13, 2012. Patient did call [facility] complaining of scant spotting when she wiped once on February 07. She denies any spotting since then. A quantitative hCG was done January 27, 2012 that was 1098 and a repeat quantitative hCG was done February 02 that was 8610. An ultrasound was done February 12 in [place]. The details are in the paper chart at [facility] office and unavailable today for review. Patient does state the ultrasound showed an EDC of September 30, 2012. Patient is using progesterone suppositories. documented as of this encounter (statuses as of 12/03/2022) [facility]10-11-2013 History of Past illness Narrative* Problem Noted Date Resolved Date Abdominal pain 07/27/2013 04/12/2016 Last Assessment & Plan: Had abdominal pain over the weekend and come to the ER she is a ER follow up. 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 No blood in the stool no weight loss or fevers Breech presentation @ 29 wks 07/26/2012 Overview: RR_ Plans c/s- still breech 36 weeks, declines version Abnormal glucose complicating 07/13/2010/31/2012 Overview: 3 of 4 values normal for 3 hr GTT/not gest diabetic. Supervision of normal first 03/23/2012 10/31/2012 Nausea/vomiting in 02/25/2012 Overview: February 25, 2012 RR- N/V q am. Will try vit b6 and john, small frequent meals, ect Obesity, unspecified 02/15/2012 04/12/2016 Overview: Patient is obese. One-hour GCT done. February 25, 2012 RR- d/w her importance of exercise, wt management and wt gain in . She will try to keep wt gain to 15 lbs or less Other hammer toe (acquired) 12/08/201103/18 Abnormality of gait 09/24/2011 10/31/2012 Other disorders of bone and cartilage(733.99) 10/31/2012 Routine general medical exam ination at a health care facility 06/17/2011 01/27/2012 Overview: 06/17/2011, [facility] OLD RECORDS -- received 06/22/2011, scanned (68 pages, kept for reference only) Routine gynecological examination 06/17/2011 01/27/2012 Overview: [facility], [facility] Elsie Pineal gland cyst 06/17/2011 07/28/2012 Overview: Found on MRI work-up for migraine, incidental finding Female infertility of other specified origin 10/31/2012 Overview: She has a history of in vitro fertilization by Dr. Bueno. The transfer date was January 13, 2012. Patient did call [facility] complaining of scant spotting when she wiped once on February 07. She denies any spotting since then. A quantitative hCG was done January 27, 2012 that was 1098 and a repeat quantitative hCG was done February 02 that was 8610. An ultrasound was done February 12 in [place]. The details are in the paper chart at [facility] office and unavailable today for review. Patient does state the ultrasound showed an EDC of September 30, 2012. Patient is using progesterone suppositories. documented as of this encounter (statuses as of 01/13/2023) [facility] History of Past illness Narrative* Problem Noted Date Resolved Date Abdominal pain 07/27/2013 04/12/2016 Last Assessment & Plan: Had abdominal pain over the weekend and come to the ER she is a ER follow up. 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 No blood in the stool no weight loss or fevers Breech presentation @ 29 wks 07/26/2012 Overview: RR_ Plans c/s- still breech 36 weeks, declines version Abnormal glucose complicating 07/13/20 12 10/31/2012 Overview: 3 of 4 values normal for 3 hr GTT/not gest diabetic. Supervision of normal first 03/23/2012 10/31/2012 Nausea/vomiting in 02/25/2012 Overview: February 25, 2012 RR- N/V q am. Will try vit b6 and john, small frequent meals, ect Obesity, unspecified 02/15/2012 04/12/2016 Overview: Patient is obese. One-hour GCT done. February 25, 2012 RR- d/w her importance of exercise, wt management and wt gain in . She will try to keep wt gain to 15 lbs or less Other hammer toe (acquired) 12/08/201103/18 Abnormality of gait 09/24/2011 10/31/2012 Other disorders of bone and cartilage(733.99) 10/31/2012 Routine general medical exam ination at a health care facility 06/17/2011 01/27/2012 Overview: 06/17/2011, [facility] OLD RECORDS -- received 06/22/2011, scanned (68 pages, kept for reference only) Routine gynecological examination 06/17/2011 01/27/2012 Overview: [facility], [facility] Mable Pineal gland cyst 06/17/2011 07/28/2012 Overview: Found on MRI work-up for migraine, incidental finding Female infertility of other specified origin 10/31/2012 Overview: She has a history of in vitro fertilization by Dr. Bueno. The transfer date was January 13, 2012. Patient did call [facility] complaining of scant spotting when she wiped once on February 07. She denies any spotting since then. A quantitative hCG was done January 27, 2012 that was 1098 and a repeat quantitative hCG was done February 02 that was 8610. An ultrasound was done February 12 in [place]. The details are in the paper chart at [facility] office and unavailable today for review. Patient does state the ultrasound showed an EDC of September 30, 2012. Patient is using progesterone suppositories. documented as of this encounter (statuses as of 02/17/2023) [facility] History of Past illness Narrative* Problem Noted Date Diagnosed Date Resolved Date Abdominal pain 07/27/2013 04/12/2016 Last Assessment & Plan: Had abdominal pain over the weekend and come to the ER she is a ER follow up. In the ER she had a CT scan done that was not suggestive of any cholecystitis no other pathology was found she also had lipase checked which was negative her WBC count was mildly elevated but otherwise was normal and she was discharged she didnt have pain for 3 days after that but yesterday and today she has some mild gnawing pain in her abdomen is 2/10 in the epigastric region and she also has a little bit of nausea and was concerned about the chest a lot of stress from her graduate education and having a 75-tqrau-can son at home , does not eat a lot of spicy food. No blood in the stool no weight loss or fevers Breech presentation @ 29 wks 07/26/2012 10/31/2012 Overview: RR_ Plans c/s- still breech 36 weeks, declines version Abnormal glucose complicating 07/13/2012 10/31/2012 Overview: 3 of 4 values normal for 3 hr GTT/not gest diabetic. Supervision of normal first 03/23/2012 10/31/2012 Nausea/vomiting in 02/25/2012 09/08/2012 Overview: February 25, 2012 RR- N/V q am. Will try vit b6 and john, small frequent meals, ect Obesity, unspecified 02/15/2012 016 Overview: Patient is obese. One-hour GCT done. February 25, 2012 RR- d/w her importance of exercise, wt management and wt gain in . She will try to keep wt gain to 15 lbs or less Other hammer toe (acquired) 12/08/2011 04/12/2016 Abnormality of gait 09/24/2011 10/31/19 13 Other disorders of bone and cartilage(733.99) 07/27/20 11 10/31/2012 Routine general medical exam ination at a health care facility 06/17/2011 01/27/2012 Overview: [facility] OLD RECORDS -- received 06/22/2011, scanned (68 pages, kept for reference only) Routine gynecological examination 06/17/2011 01/27/2012 Overview: [facility], [facility] Elsie Pineal gland cyst 06/17/2011 07/28/2012 Overview: Found on MRI work-up for migraine, incidental finding Female infertility of other specified origin 0 10/31/2012 Overview: She has a history of in vitro fertilization by Dr. Bueno. The transfer date was January 13, 2012. Patient did call [facility] complaining of scant spotting when she wiped once on February 07. She denies any spotting since then. A quantitative hCG was done January 27, 2012 that was 1098 and a repeat quantitative hCG was done February 02 that was 8610. An ultrasound was done February 12 in [place]. The details are in the paper chart at [facility] office and unavailable today for review. Patient does state the ultrasound showed an EDC of September 30, 2012. Patient is using progesterone suppositories. documented as of this encounter (statuses as of 09/20/2023) [facility] noteNo assessment information availableWOur [facility] of Mercy [facility] Work Phone: Evaluation note* Diagnosis Acute cough- Primary Viral illness Unspecified viral infection, in conditions classified elsewhere and of unspecified site URI, acute Acute upper respiratory infections of unspecified site [facility] Diagnosis Sore throat- Primary Acute pharyngitis Strep throat Streptococcal sore throat [facility] Diagnosis Onset Date Resolution Status BMI greater than 40 acute Obesity acute Encounter for routine gynecological examination noneactive [facility] Work Phone: Evaluation note* Diagnosis Strep pharyngitis- Primary Streptococcal sore throat [facility] Diagnosis Dizziness- Primary Dizziness and giddiness [facility] Diagnosis Onset Date Resolution Status BMI greater than 40 acute Obesity acute Encounter for routine gynecological examination noneactive Anxiety acute Binge eating disorder acute BMI greater than 40 acute Fatty liver disease, nonalcoholic acute Insulin resistance acute Obesity acute Osteoarthritis acute Anxiety acute Binge eating disorder acute BMI greater than 40 acute Fatty liver disease, nonalcoholic acute Insulin resistance acute Obesity acute Osteoarthritis acute [facility] Work Phone: Evaluation note* Diagnosis Onset Date Resolution Status Anxiety acute Binge eating disorder acute BMI greater than 40 acute Fatty liver disease, nonalcoholic acute Insulin resistance acute Obesity acute Osteoarthritis acute Anxiety acute Binge eating disorder acute BMI greater than 40 acute Fatty liver disease, nonalcoholic acute Insulin resistance acute Obesity acute Osteoarthritis acute BMI greater than 40 acute Daytime hypersomnia acute [facility] Work Phone: Evaluation note* Diagnosis Onset Date Resolution Status Anxiety acute Binge eating disorder acute BMI greater than 40 acute Fatty liver disease, nonalcoholic acute Insulin resistance acute Obesity acute Osteoarthritis acute Anxiety acute Binge eating disorder acute BMI greater than 40 acute Fatty liver disease, nonalcoholic acute Insulin resistance acute Obesity acute Osteoarthritis acute BMI greater than 40 acute Daytime hypersomnia acute Essential hypertension chron ic Obesity chronic Snoring acute [facility] Work Phone: Evaluation note* Diagnosis Upper respiratory tract infection, unspecified type- Primary [facility]* Diagnosis Acute cough documented [facility] encounter [facility]* Diagnosis Bacterial sinusitis- Primary Unspecified sinusitis (chronic) documented in this encounter [facility]* Diagnosis Onset Date Resolution Status Admit Date Encounter for routine gynecological examination noneactive April 172024 11:17am [facility] Work Phone: Progress note Author Dia García [facility] Note Date/Time May 14, 2025 11:3 8am [facility] [address] [place] [address], [address] [place] [address] OFFICE VISIT Date of Service: 05/14/25 MR#: [id number] Acct: [id number] Name: MANUEL HARRIS Rep #: [id number] : 1980 Provider: HAND DRAWER IN HELPER-C Mo lly Raquel Age/Sex: 44/F Location: [facility] Status: Signed Intake Vital Signs 05/23/24 08:05 05/14/25 11:19 05/14/25 11:27 Height 5 ft 9 in 5 ft 9 in 5 ft 9 in Weight: 299 lb 310 lb 6 oz BMI 44.1 45.8 BP 129/82 H 140/82 H Blood Pressure Location Rt brachial Position Sitting Respiration 17 Pulse 78 Pulse Source Monitor Temp 97 F L Pulse Oximetry (%) 98 Oxygen Delivery Method room air 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) Chief Complaint: Annual [employer]ra[employer] Worker Required: No Is patient in pain?: No Allergies sulfamethoxazole (From ) Allergy (Verified 05/14/25 11:30) Rash trimethoprim (From ) Allergy (Verified 05/14/25 11:30) Rash Medications ?Medication ?Instructions ?Recorded ?Confirmed ?Type multivitamin-ferrous 1 tab PO DAILY 04/20/2304/17 History fumarate-folic acid 18 mg-400 mcg tablet (Centrum Women) cetirizine 10 mg tablet (Zyrtec) 10 mg PO DAILY 05/14/25 History citalopram 20 mg tablet (Celexa) 20 mg PO DAILY 05/14/25 History hydrochlorothiazide 12.5 mg tablet 12.5 mg PO DAILY #9 0 TABLETS 05/30/24 05/14/25 Rx Is last menstrual period known: Yes Last Menstrual Period: 05/02/25 Post menopausal: No Patient : No : No PFSH Medical History Abnormal EKG Palpitations Essential hypertension BPPV (benign paroxysmal positional vertigo) Daytime hypersomnia Vitamin D deficiency Binge eating disorder Insulin resistance Fatty liver disease, nonalcoholic Osteoarthritis BMI greater than 40 Obesity Anxiety Gastritis Surgical History History of ankle surgery History of cholecystectomy S/P hammer toe correction S/P medial meniscal repair S/P tonsillectomy S/P section Family History Mother Diabetes Thyroid disorder Lupus Arthritis Sleep apnea Anxiety Sister CVA (cerebral vascular accident), Onset Age: 30 Anxiety PFO (patent foramen ovale) Celiac disease Father Hypertension Daughter Anxiety Other Bleeding disorder Social History (Updated 05/14/25 @ 11:36 by Dia García NP, HAND DRAWER IN HELPER-C) household members: spouse and children number of children: 1 current occupational status: employed current occupation: [employer], [employer] Smoking Status: Former smoker alcohol intake: current alcohol intake frequency: holidays/special occasions only substance use type: does not use seatbelt use: always do you feel safe at home: Yes additional social history: Gopi [employer] at [employer] History 1 Elective abortions Hx Para 1 Spontaneous abortions Hx # Term Pregnancies 1 Ectopic pregnancies Hx # Pregnancies Multiple births # of living children 1 Past Pregnancies Del. Date Name GA/Weeks Outcome Route Bth Weight Infant Gen Labor Lgth Anesthesia Del Locat Provider FOB Unknown Nas2011 HPI Encounter for routine gynecological examination Details: MANUEL HARRIS is a 44 year old who presents for annual exam. Denies concerns. 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, [employer] Last PAP: 2022 History of abnormal PAP: no Last mammogram: 04/2024 History of abnormal mammogram: benign bx Colon cancer screening: age 46 Other preventative health care screenings: [facility] Female Reproductive History Last Menstrual Period: 05/02/25 Cycle Length: 21-35 Questions: metorrhagia: No, sexually active: Yes, dyspareunia: No and PCB: No ROS Const Constitutional: Denies fatigue, weight gain or weight loss Cardio Card: Denies chest pain Resp Resp: Denies cough or dyspnea on exertion GI GI: Denies abdominal pain, bloating, change in stool character, constipation or vomiting : Reports as per HPI; Denies difficulty voiding, pelvic pain, urinary frequency, urinary incontinence,urinary urgency, vaginal discharge or vaginal pruritus Exam Const General: cooperative, healthy appearing, no acute distress and well developed Orientation: alert, oriented to person and oriented to place HENWY Head: normal to inspection Neck Neck: normal visual inspection Thyroid: thyroid normal Lymphatic: no lymphadenopathy noted Chest Breast inspection: normal inspection of the breasts and normal inspection of theaxillae Breast palpation: normal palpation of the breasts, normal palpation of the axillae and no axillary lymphadenopathy Resp Effort & Inspection: normal respiratory effort GI Palpation: soft, no masses and nontender Rectal Exam: deferred External Female Exam: normal external appearance and normal appearance of the urethra Urethra: normal appearance of the urethra and normal palpation Speculum Exam - Vagina: normal appearance of the vagina and normal vaginal discharge Speculum Exam - Cervix: normal appearance of the cervix Bimanual Exam- Vagina & Uterus: normal bimanual exam, uterine size normal, uterine shape normal and non-tender Bimanual Exam- Adnexa, other: normal adnexae, no masses, normal and non-tender Pelvic Support: normal Neuro General: patient alert and patient oriented x3 Psych Affect: normal affect Coding Level of Care Code Off vis,est,prev 40-64yrs Diagnoses Encounter for gynecological examination without abnormal finding Z01.419 Gynecological examination findings: abnormal findings ABSENT Class 3 severe obesity due to excess calories with serious comorbidity and body mass index (BMI) of 45.0 to 49.9 in adult E66.813; Z68.42 Body mass index: BMI 45.0-49.9 Obesity classification: adult class 3 (BMI >= 40) Obesity type: due to excess calories Serious obesity comorbidity presence: with serious comorbidity Assessment and Plan Assessment and Plan (1) Encounter for routine gynecological examination: Qualifiers: Gynecological examination findings: abnormal findings ABSENT Qualified Code(s): Z01.419 - Encounter for gynecological examination (general) (routine) without abnormal findings (2) Obesity: Status: Chronic Qualifiers: Body mass index: BMI 45.0-49.9 Obesity classification: adult class 3 (BMI >= 40) Obesity type: due to excess calories Serious obesity comorbidity presence: with serious comorbidity Qualified Code(s): E66.813 - Obesity, class 3; Z68.42 - Body mass index [BMI] 45.0-49.9, adult Plan Completed breast and pelvic exam Reviewed diet and exercise Pap 2022 Mammogram ordered breast self exam encouraged monthly Contraception infertility Colonoscopy age 46 RTO 1 year, prn with problems Dia García PAYROLL TAX ANALYST 05/14/25 1138 <Electronically signed by Dia reyes HAND DRAWER IN HELPER HAND DRAWER IN HELPER-C> Date _ Dia García HAND DRAWER IN HELPER HAND DRAWER IN HELPER-C Cosigner Signature: Date (if applicable) CC: ~ [facility] Work Phone: Reason for referral (narrative)No reason for referral information availableWOur Lady of Mercy Hospital Work Phone: Chief Complaint and Reason for Visit Chief Complaint Admit Date Annual (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) May 14, 2025 11:1 7am PERALTA May 30, 2025 8: 13am Reason for Visit Admit Date Obesity May 14, 2025 11:1 7am Encounter for routine gynecological exam ination May 14, 2025 11:17am Chief Complaint Admit Date Annual (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) May 14, 2025 11:1 7am Chief Complaint SCREENING Chief Complaint Annual (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) Reason for Visit BMI greater than 40 Obesity Encounter for routine gynecological examination Chief Complaint Annual (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) weight management consult E-ORDER 1 M FU OBESITY Reason for Visit BMI greater than 40 Obesity Encounter for routine gynecological examination Anxiety Binge eating disorder BMI greater than 40 Fatty liver disease, nonalcoholic Insulin resistance Obesity Osteoarthritis Anxiety Binge eating disorder BMI greater than 40 Fatty liver disease, nonalcoholic Insulin resistance Obesity Osteoarthritis Chief Complaint weight management co nsult E-ORDER 1 M FU OBESITY Sleep apnea HYPERSOMNIA Reason for Visit Anxiety Binge eating disorder BMI greater than 40 Fatty liver disease, nonalcoholic Insulin resistance Obesity Osteoarthritis Anxiety Binge eating disorder BMI greater than 40 Fatty liver disease, nonalcoholic Insulin resistance Obesity Osteoarthritis BMI greater than 40 Daytime hypersomnia Chief Complaint weight management co nsult E-ORDER 1 M FU OBESITY MEDICATION Sleep apnea HYPERSOMNIA SCREENING ABN EKG (MARCANTHONY) Sleep study results 2 ORDERING DOCTORS/E ORDERS ABNORMAL EKG Reason for Visit Anxiety Binge eating disorder BMI greater than 40 Fatty liver disease, nonalcoholic Insulin resistance Obesity Osteoarthritis Anxiety Binge eating disorder BMI greater than 40 Fatty liver disease, nonalcoholic Insulin resistance Obesity Osteoarthritis BMI greater than 40 Daytime hypersomnia Essential hypertension Obesity Snoring Chief Complaint Admit Date 6 MO F/U LT BREAST MASS December 17, 2024 10:32am Reason for Visit Admit Date Encounter for routine gynecological exam ination May 14, 2025 11:17am Family History No Family History Records Found Relationship Condition Age at Onset Recorded Date/T vanessa Not Specified Hemorrhagic disorder Unknown mother Diabetes mellitus Unknown Disorder of thyroid Unknown Lupus Unknown Arthritis Unknown sister Cerebrovascular accident (CVA) Unknown father Hypertension Unknown Relationship Condition Age at Onset Recorded Date/T vanessa Not Specified Hemorrhagic disorder Unknown mother Diabetes mellitus Unknown Disorder of thyroid Unknown Lupus Unknown Arthritis Unknown Sleep apnea Unknown Anxiety Unknown sister Cerebrovascular accident (CVA) 30 Patent foramen ovale Unknown Celiac disease Unknown father Hypertension Unknown daughter Anxiety Unknown Advance Directives No Advanced Directives Records Found Advance Directive Response Recorded Date/ Time Living Will Yes February 10, 2020 2:46am Power of Forensic Chemist Yes February 09 2:46am Advance Directive Response Recorded Date/ Time Living Will Yes October 25 11:53am Power of Forensic Chemist Yes October 25 023 11:53am Advance Directive Response Recorded Date/ Time Living Will Yes October 25 12:53pm Power of Forensic Chemist Yes October 25 023 12:53pm Health Concerns Infection Onset Date Last Indicated Resolved Time COVID-19 Rule-Out 10/02/2022 10/02/2022 Infection Onset Date Last Indicated Resolved Time COVID-19 Rule-Out 09/20/2023 09/20/2023 Summary Purpose Additional Source Comments Goals (unrecognized section and content) Goals may be documented in a n alternate sectionGoals may be documented in an alternate sectionGoals may be documented in an alternate sectionGoals may be documented in an alternate sectionGoals may be documented in an alternate sectionGoals may be documented in an alternate sectionGoals may be documented in an alternate sectionGoals may be documented in an alternate sectionGoals may be documented in an alternate sectionGoals may be documented in an alternate sectionGoals may be documented in an alternate section Source Comments (unrecognize d section and content) In the event this informatio n is protected by the Federal Confidentiality of Alcohol and Drug Abuse Patient Records regulations: The Federal rules restrict any use of the information to criminally investigate or prosecute any alcohol or drug abuse patient.[facility] the event this information is protected by the Federal Confidentiality of Alcohol and Drug Abuse Patient Records regulations: The Federal rules restrict any use of the information to criminally investigate or prosecute any alcohol or drug abuse patient.[facility] HospitalIn the event this information is protected by the Federal Confidentiality of Alcohol and Drug Abuse Patient Records regulations: The Federal rules restrict any use of the information to criminally investigate or prosecute any alcohol or drug abuse patient.[facility] the event this information is protected by the Federal Confidentiality of Alcohol and Drug Abuse Patient Records regulations: The Federal rules restrict any use of the information to criminally investigate or prosecute any alcohol or drug abuse patient.[facility] HospitalIn the event this information is protected by the Federal Confidentiality of Alcohol and Drug Abuse Patient Records regulations: The Federal rules restrict any use of the information to criminally investigate or prosecute any alcohol or drug abuse patient.[facility] HospitalIn the event this information is protected by the Federal Confidentiality of Alcohol and Drug Abuse Patient Records regulations: The Federal rules restrict any use of the information to criminally investigate or prosecute any alcohol or drug abuse patient.[facility] HospitalIn the event this information is protected by the Federal Confidentiality of Alcohol and Drug Abuse Patient Records regulations: The Federal rules restrict any use of the information to criminally investigate or prosecute any alcohol or drug abuse patient.[facility] Reason for Visit (unrecogniz ed section and content) Reason Comments Cough Chest congestion, ac hy x 3 days Reason Comments Sore Throat GARCIA, bodyaches x2 day s Reason Comments Sore Throat Swollen throat, body aches x 1 day Reason Comments Dizziness Pt reported noise se nsitivity x3 days, denied fall. Reason Comments Sore Throat X 2 weeks worse last night, congestion Care Teams (unrecognized sec tion and content) Miner Helper Relationship Specialty Start Date End Date Napoleon Chambers DO [address] [place] [address] PCP - General Family Medicine 10/02/22 Team Status: Active Member Role Status Dates Dr. Napoleon Chambers DO Family Provider Active Dr. Napoleon Chambers DO Primary Care Provider Active Team Status: Inactive Member Role Status Dates Dr. Napoleon Chambers DO Primary Care Provider, Referrin g Provider Active Dia García HAND DRAWER IN HELPER, HAND DRAWER IN HELPER-C Attending Provider Active Team Status: Inactive Member Role Status Dates Dr. Napoleon Chambers DO Primary Care Provider Active Dia García HAND DRAWER IN HELPER, HAND DRAWER IN HELPER-C Attending Provider Active Miner Helper Relationship Specialty Start Date End Date Napoleon Chambers DO [address] [place] [address] PCP - General Family Medicine 10/02/22 Miner Helper Relationship Specialty Start Date End Date Napoleon Chambers DO [address] [place], [place] [address] PCP - General Family Medicine 10/02/22 Team Status: Inactive Member Role Status Dates Dr. Napoleon Chambers DO Primary Care Provider, Referrin g Provider Active Dr. Jeanine Matamoros MD Attending Provider Active Team Status: Inactive Member Role Status Dates Dr. Napoleon Chambers DO Primary Care Provider Active Dr. Jeanine Matamoros MD Attending Provider, Referr ing Provider Active Team Status: Inactive Member Role Status Dates Dr. Napoleon Chambers DO Primary Care Provider, Referrin g Provider Active Ester Hernadez HAND DRAWER IN HELPER, HAND DRAWER IN HELPER-C Attending Provider Active Team Status: Inactive Member Role Status Dates Dr. Napoleon Chambers DO Primary Care Provider Active Ester Hernadez HAND DRAWER IN HELPER, HAND DRAWER IN HELPER-C Attending Provider, Referrin g Provider Active Team Status: Inactive Member Role Status Dates Dr. Napoleon Chambers DO Primary Care Provider, Referrin g Provider Active Dr. Gaudencio Martell MD Attending Provider Active Team Status: Active Member Role Status Dates Dr. Napoleon Chambers DO Primary Care Provider Active Dr. Brady Rene MD Attending Provider Activ e Dr. Jeanine Matamoros MD Referring Provider Active Team Status: Inactive Member Role Status Dates Dr. Napoleon Chambers DO Primary Care Provider Active Dia García HAND DRAWER IN HELPER, HAND DRAWER IN HELPER-C Attending Provider, Referring Provider Active Team Status: Active Member Role Status Dates Dr. Napoleon Chambers DO Primary Care Provider Active Dr. Gaudencio Martell MD Attending Provider, Referring Pr ovider Active Team Status: Inactive Member Role Status Dates Dr. Napoleon Chambers DO Primary Care Provider Active Dr. Gaudencio Martell MD Attending Provider, Referring Pr ovider Active Dia García HAND DRAWER IN HELPER, HAND DRAWER IN HELPER-C Other Provider Active Team Status: Inactive Member Role Status Dates Dr. Napoleon Chambers DO Primary Care Provider Active Dr. Gaudencio Martell MD Attending Provider, Referring Pr ovider Active Miner Helper Relationship Specialty Start Date End Date TrishNapoleon [address] [place] [address] PCP - General Family Medicine 10/02/22 Miner Helper Relationship Specialty Start Date End Date TrishNapoleon [address] [place] [address] PCP - General Family Medicine 10/02/22 Miner Helper Relationship Specialty Start Date End Date Napoleon Chambers DO [address] [place], [place] [address] PCP - General Family Medicine 10/02/22 Team Status: Active Member Role Status Dates Dr. Napoleon Chambers DO Primary Care Provider Active Team Status: Inactive Member Role Status Dates Dr. Napoleon Chambers DO Primary Care Provider Active Start: December 17, 2024 End: December 17, 2024 Dr. Kamla Keita MD Attending Provider Active Start: December 17, 2024 End: December 17, 2024 Dr. Kamla Keita MD Referring Provider Active Start: December 17, 2024 End: December 17, 2024 Team Status: Active Member Role/Relationship Status Dates Dr. Napoleon Chambers DO Primary Care Provider Active Team Status: Inactive Member Role/Relationship Status Dates Dr. Napoleon Chambers DO Primary Care Provider Active Start: May 14, 2025 End: May 14, 2025 Dr. Napoleon Chambers DO Referring Provider Active Start: May 14, 2025 End: May 14, 2025 Dia García NP, HAND DRAWER IN HELPER-C Attending Provider Active Start: May 14, 2025 End: May 14, 2025 Team Status: Inactive Member Role/Relationship Status Dates Dr. Napoleon Chambers DO Primary Care Provider Active Start: May 22, 2025 End: May 22, 2025 Dr. Napoleon Chambers DO Attending Provider Active Start: May 22, 2025 End: May 22, 2025 Team Status: Inactive Member Role/Relationship Status Dates Dr. Napoleon Chambers DO Primary Care Provider Active Start: May 30, 2025 End: May 30, 2025 Dr. Napoleon Chambers DO Attending Provider Active Start: May 30, 2025 End: May 30, 2025 Dr. Napoleon Chambers DO Referring Provider Active Start: May 30, 2025 End: May 30, 2025 INFORMATION SOURCE (unrecogn ized section and content) DATE CREATED AUTHOR 12/16/2024 [facility] DATE CREATED AUTHOR AUTHOR'S ORGANIZ ATION 07/06/2025 [facility] FOR RECORDS PERTAINING TO PATIENTS WHO ARE OR HAVE BEEN ENROLLED IN A CHEMICAL DEPENDENCY/SUBSTANCEABUSE PROGRAM, SOME INFORMATION MAY BE OMITTED. This clinical summary was aggregated from multiple sources. Caution should be exercised in using it in the provision of clinical care. This summary normalizes information from multiple sources, and as a consequence, information in this document may materially change the coding, format and clinical context of patient data. In addition, data may be omitted in some cases. CLINICAL DECISIONS SHOULD BE BASED ON THE PRIMARY CLINICAL RECORDS. [employer] provides no warranty or guarantee of the accuracy or completeness of information in this document.
== END | disposition home or self-care (01) ==
LOC: OPBI 15:56
PROVIDERS: PCP Family Medicine; Referring Provider Nurse Practitioner Women's Health; Visit Provider Nurse Practitioner Women's Health
DX: Z12.31 Encounter for screening mammogram for malignant neoplasm of breast (principal)
CPT/HCPCS: 77063; 77067

== ENCOUNTER → 2025-08-21 | Outpatient (CLI) | payer BC, SELFPAY ==
[2025-08-21 17:07] LABS: Hematocrit 38.6 % (37-47); Hemoglobin 12.0 g/dL (12.0-15.0); Immature Granulocytes Count 0.040 X10^3/uL (0.0-0.0); Mean Corp Hgb Conc 31.1 g/dL (32-36); Mean Corpuscular Volume 79.1 fL (81-99); Mean Platelet Vol. 9.0 fl (6.2-12.0); NRBC Flagged by Analyzer 0 % (0-5); Platelet Count 406 K/mm3 (150-450); RBC Distribution Width CV 15.3 % (11.6-14.6); RBC Distribution Width SD 44.3 fl (35.1-43.9); Red Blood Count 4.88 M/mm3 (4.2-5.4); White Blood Count 8.3 K/mm3 (4.4-11.0)
[2025-08-21 18:10] LABS: AST(SGOT) 26 U/L (<=31); Alanine Aminotransfer ALT/SGPT 29 U/L (<=34); Albumin, Serum 3.8 g/dL (3.5-5.0); Alkaline Phosphatase 86 U/L (35-104); Anion Gap 11 (5-15); BUN 7 mg/dL (4-19); BUN/Creat Ratio 10.4 RATIO (10-20); Calcium,Total 8.7 mg/dL (7.6-11.0); Carbon Dioxide 25.7 mmol/L (21.0-32.0); Chloride 101 mmol/L (98-108); Ferritin 30 ng/mL (22-378); Globulin 3.0 g/dL (2.2-4.2); Glucose 89 mg/dL (70-99); Iron 34 ug/dL (50-170); Potassium 3.9 mmol/L (3.3-5.1)
== END | disposition home or self-care (01) ==
LOC: LAB 16:29
PROVIDERS: PCP Family Medicine; Referring Provider Family Medicine; Visit Provider Family Medicine
DX: K75.81 Nonalcoholic steatohepatitis (NASH) (principal); E11.9 Type 2 diabetes mellitus without complications; D50.9 Iron deficiency anemia, unspecified
CPT/HCPCS: 36415; 80053; 82728; 83036; 83540; 85025